=== PATIENT | female | born 1980 | race Two or more races ===

== ENCOUNTER 2024-01-23 15:28 | Outpatient (REF) | payer BC, SELFPAY | END 2024-01-23 15:29 | disposition home or self-care (01) | LOC: LAB 15:28 | PROVIDERS: PCP Family Medicine; Visit Provider Obstetrics & Gynecology | DX: N92.0 Excessive and frequent menstruation with regular cycle (principal); N94.89 Other specified conditions associated with female genital organs and menstrual cycle | CPT/HCPCS: 88305 ==

== ENCOUNTER 2024-02-10 14:38 | Outpatient (OUT) | payer BC, SELFPAY ==
--- NOTE | 2024-02-10 14:45 | ECG_ITS ---
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
--- OUTSIDE RECORDS SUMMARY | 2024-02-10 14:50 | XMS_ITS | CCD ---
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 Role Phone Kajal Herrera Unavailable CECILIO BOURGEOIS Referring Unavailable NADERERCECILIO Primary Care Unavailable CECILIO BOURGEOIS Referring Unavailable CHRISTELLE, CECILIO Primary Care Unavailable MIR MIRELES Attending Unavailable FLORMIR Santamaria Referring Unavailable CECILIO BOURGEOIS Attending Unavailable FLORMIR Santamaria Attending Unavailable AUREA DURAN Attending Unavailable MIR MIRELES Referring Unavailable AUREA DURAN Attending Unavailable Aurea Duran Attending Unavailable Aurea Duran Admitting Unavailable Allergies Allergy Classification Reported Allergen(s) Allergy Type Date of Onset Reaction(s) Facility (1 source) Cefaclor Drug Allergy 11-08-2023 [facility] Repository Medications Current Medications Medication Drug Class(es) Dates Sig (Normalized) Sig (Original) amitriptyline hydrochloride 25 mg oral tablet (1 source) Tricyclic Antidepressant take 1 tablet by mouth every twenty-four hours Amitriptyline HCl 25 MG 1 tablet at bedtime Orally Once a day for 30 day(s) Active amoxicillin 500 mg oral capsule (1 source) Penicillin-class Antibacterial Start: 2023 take 1 capsule by mouth every eight hours Amoxicillin 500 MG 1 capsule Orally three times a day for 10 day(s) Jun, Active Problems Problem Classification Problem Date Documented Da te Episodic/Chronic Other screening for suspected conditions (not mental disorders or infectious disease) (1 source) Encounter for screening mammogram for malignant neoplasm of breast; Translations: [Encounter for screening mammogram for malignant neoplasm of breast] Onset: 12-07-2023 Episodic Otitis media and related conditions (1 source) Otitis media, unspecified, bilateral Episodic Results Test Name Value Interpretation Reference Range Facil ity Alvino 01-23-2024 L Specimen: [id number] Received: 01/25/24 Status: JOANIE Garcia Num: [id number] Spec Type: Surgical Subm Dr: Aurea Duran Tissues: A Endometrium - Biopsy (EMB) B Endocervix - Curettings (ECC) Procedures: HE/4, Gross/Micro L4/2 Age/ Patient Sex Location Account Attending Physician BrandonMai fleming 43/F [facility] [id number] Aurea Duran SPEC NUM: [id number] RECD: 01/25/24 STATUS: JOANIE GARCIA NUM: [id number] KULWANT: 01/23/[address]: Aurea Duran ENTERED: 01/25/[address] [facility] DR: Jose,Lab SPEC TYPE: Surgical DEPT: LOIDA SCHAEFER ORDERED: HE/4, Gross/Micro L4/2 ORDERED: HE/4, Gross/Micro L4/2 Pathological Diagnosis A. Endometrium, biopsy: Scanty fragments of lower uterine segment endometrium, unremarkable. B. Endocervix, biopsy: Fragments of endocervix, unremarkable. Gross Description A. Received in formalin, labeled with the patient's name, date of and endo bx are multiple hemorrhagic lora tissue fragments admixed with mucus collectively measuring 2.2 x 0.4 x 0.1 cm, entirely submitted in A1. B. Received in formalin, labeled with the patient's name, date of and ECC are multiple lora tissue fragments admixed with mucus measuring in aggregate 2.0 x 0.7 x 0.1 cm, entirely submitted in B1. 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 Computer aided detection was utilized. FINDINGS: There are scattered areas of fibroglandular density. There are no suspicious masses, calcifications, or areas of architectural distortions. Benign bilateral calcifications including vascular calcifications IMPRESSION: Benign findings BI-RADS: BI-RADS 2 - Benign Recommendation: Routine screening mammogram in 1 year. Finalized by Rustam Pierce MD on 12/08/2023 8:40 AM 2 b MAMM 1 YR Normal [facility] BASIC METABOLIC PANLon 11-27 Anion gap [Moles/Vol] 11 mmol/L Normal 5-15 [facility] Comment on above: Performed By: #### C BCA, BMP, 71780-0, LIVR, 3016-3 #### [facility] ([id number]) [address], [address] [place] [address] Calcium [Mass/Vol] 9.5 mg/dL Normal 8.5-10.5 [facility] Comment on above: Performed By: #### C BCA, BMP, 87765-7, LIVR, 3016-3 #### [facility] ([id number]) [address], [address] [place] [address] Chloride [Moles/Vol] 105 mmol/L Normal 98-109 [facility] Comment on above: Performed By: #### C BCA, BMP, 25940-5, LIVR, 3016-3 #### [facility] ([id number]) [address], [address] [place] [address] CO2 [Moles/Vol] 25 mmol/L Normal 22-32 [facility] Comment on above: Performed By: #### C BCA, BMP, 88772-4, LIVR, 3016-3 #### [facility] ([id number]) [address], [address] [place] [address] Creatinine [Mass/Vol] 0.85 mg/dL Normal 0.40-1.00 [facility] Comment on above: Result Comment: METH OD TRACEABLE TO IDMS STANDARD Performed By: #### C BCA, BMP, 16289-4, LIVR, 3016-3 #### [facility] ([id number]) [address] [address] GFR/1.73 sq M.predicted among non-blacks MDRD (S/P/Bld) [Vol rate/Area] 86 mL/min/{1.73_m2} Normal >59 [facility] Comment on above: Result Comment: Reported eGFR is based on the CKD-EPI 2020 equation that does not use a race coefficient. Performed By: #### C BCA BMP, 26873-3, LIVR, 3016-3 #### [facility] ([id number]) [address] [address] Glucose [Mass/Vol] 69 mg/dL Normal 65-99 [facility] Comment on above: Performed By: #### C BCA, BMP, 59175-8, LIVR, 3016-3 #### [facility] ([id number]) [address] [address] Potassium [Moles/Vol] 3.4 mmol/L Low 3.5-5.0 [facility] Comment on above: Performed By: #### C BCA, BMP, 23861-0, LIVR, 3016-3 #### [facility] ([id number]) [address] [address] Sodium [Moles/Vol] 141 mmol/L Normal 134-146 [facility] Comment on above: Performed By: #### C BCA, BMP, 49247-9, LIVR, 6-3 #### [facility] ([id number]) [address] [address] Urea nitrogen [Mass/Vol] 9 mg/dL Normal 5-23 [facility] Comment on above: Performed By: #### C BCA, BMP, 32700-3, LIVR, 3016-3 #### [facility] ([id number]) [address] [address] CBC AND AUTO DIFFon 11-28-19 24 ABSOLUTE BASOPHIL 0.1 X10E9/L Normal 0.0-0.2 [facility] Comment on above: Performed By: #### C BCA, BMP, 84029-9, LIVR, 301-3 #### [facility] ([id number]) [address], [address] [place] [address] ABSOLUTE NEUTROPHIL 3.9 X10E9/L Normal 1.5-6.6 [facility] Comment on above: Performed By: #### C BCA, BMP, 32936-0, LIVR, 3015-11 #### [facility] ([id number]) [address], [facility] [address] [place] [address] Basophils/100 WBC (Bld) 0.8 % Normal [facility] Comment on above: Performed By: #### C BCA, BMP, 57170-5, LIVR, 3015-11 #### [facility] ([id number]) [address], [address] [place] [address] Eosinophils (Bld) [#/Vol] 0.1 10*3/uL Normal 0.0-0.4 [facility] Comment on above: Performed By: #### C BCA, BMP, 39618-3, LIVR, 3015-11 #### [facility] ([id number]) [address], [facility] [address] [place] [address] Eosinophils/100 WBC (Bld) 1.6 % Normal [facility] Comment on above: Performed By: #### C BCA, BMP, 13880-2, LIVR, 3015- #### [facility] ([id number]) [address], [facility] [address] [place] [address] Erythrocyte distribution width (RBC) [Ratio] 12.7 % Normal 11.5-15.0 [facility] Comment on above: Performed By: #### C BCA, BMP, 51350-7, LIVR, 3015- #### [facility] ([id number]) [address] [address] [place] [address] Hematocrit (Bld) [Volume fraction] 42.5 % Normal 35-47 [facility] Comment on above: Performed By: #### C BCA, BMP, 33597-3, LIVR, 301-3 #### [facility] ([id number]) [address] [address] [place] [address] Hemoglobin (Bld) [Mass/Vol] 14.3 g/dL Normal 11.7-15.5 [facility] Comment on above: Performed By: #### C BCA, BMP, 38213-7, LIVR, 3015-3 #### [facility] ([id number]) [address], [address] [place] [address] Lymphocytes (Bld) [#/Vol] 2.3 10*3/uL Normal 1.0-3.5 [facility] Comment on above: Performed By: #### C BCA, BMP, 53692-6, LIVR, 3015-11 #### [facility] ([id number]) [address] [place] [address] Lymphocytes/100 WBC (Bld) 33.2 % Normal [facility] Comment on above: Performed By: #### C BCA, BMP, 99706-3, LIVR, 301-3 #### [facility] ([id number]) [address], [address] [place] [address] MCH (RBC) [Entitic mass] 29.4 pg Normal 27-34 [facility] Comment on above: Performed By: #### C BCA, BMP, 75646-0, LIVR, 3015-3 #### [facility] ([id number]) [address], [address] [place] [address] MCHC (RBC) [Mass/Vol] 33.6 g/dL Normal 32-36 [facility] Comment on above: Performed By: #### C BCA, BMP, 37006-7, LIVR, 3015-11 #### [facility] ([id number]) [address], [address] [place] [address] MCV (RBC) [Entitic vol] 88 fL Normal 80-100 [facility] Comment on above: Performed By: #### C BCA, BMP, 85691-0, LIVR, 3015- #### [facility] ([id number]) [address], [address] [place] [address] Monocytes (Bld) [#/Vol] 0.5 10*3/uL Normal 0-0.9 [facility] Comment on above: Performed By: #### C BCA, BMP, 85475-9, LIVR, 3015-11 #### [facility] ([id number]) [address], [facility] [address] [place] [address] Monocytes/100 WBC (Bld) 7.5 % Normal [facility] Comment on above: Performed By: #### C BCA, BMP, 76202-7, LIVR, 3015-11 #### [facility] ([id number]) [address], [facility] [address] [place] [address] Neutrophils/100 WBC (Bld) 56.9 % Normal [facility] Comment on above: Performed By: #### C BCA, BMP, 55876-8, LIVR, 3015-11 #### [facility] ([id number]) [address], [address] [place] [address] Platelet mean volume (Bld) [Entitic vol] 7.3 fL Normal 7-12 [facility] Comment on above: Performed By: #### C BCA, BMP, 79407-3, LIVR, 6- #### [facility] ([id number]) [address], [address] [place] [address] Platelets (Bld) [#/Vol] 392 10*3/uL Normal 150-450 [facility] Comment on above: Performed By: #### C VIRY, BMP, 88680-2, LIVR, 3016-3 #### [facility] ([id number]) [address], [facility] [address] [place] [address] RBC COUNT 4.85 X10E12/L Normal 3.80-5.20 [facility] Comment on above: Performed By: #### C VIRY, BMP, 98635-9, LIVR, 3015-3 #### [facility] ([id number]) [address], [facility] [address] [place] [address] WBC (Bld) [#/Vol] 6.8 10*3/uL Normal 4.0-11.0 [facility] Comment on above: Performed By: #### C VIRY, BMP, 31573-2, LIVR, 3015-3 #### [facility] ([id number]) [address], [address] [place] [address] HGB A1C (GLYCO-HGB)on 2023 Glucose [Mass/Vol] 103 mg/dL Normal [facility] Comment on above: Performed By: #### C LORENE BAIRES, 57288-6, LIVR, 3015-3 #### [facility] ([id number]) [address] [address] [place] [address] HbA1c (Bld) [Mass fraction] 5.2 % Normal 4.4-5.6 [facility] Comment on above: Result Comment: NOTE ADA Guidelines Result HgbA1c Normal : less than 5.7 % Prediabetes : 5.7 % to 6.4 % Diabetes : > 6.4 % Use with caution in patients with abnormal hemoglobin variants as the half-life of red blood cells and in vivo glycation rates are affected. Performed By: #### C BCA, BMP, 45163-1, LIVR, 3016-3 #### [facility] ([id number]) [address], [address] [place] [address] LIVER PANELon 11-28-2023 Albumin [Mass/Vol] 4.2 g/dL Normal 3.2-5.3 [facility] Comment on above: Performed By: #### C BCA, BMP, 54557-3, LIVR, 3016-3 #### [facility] ([id number]) [address], [address] [place] [address] ALP [Catalytic activity/Vol] 59 U/L Normal 39-130 [facility] Comment on above: Performed By: #### C BCA, BMP, 03592-5, LIVR, 3016-3 #### [facility] ([id number]) [address], [address] [place] [address] ALT [Catalytic activity/Vol] 25 U/L Normal 0-31 [facility] Comment on above: Performed By: #### C BCA, BMP, 71733-8, LIVR, 6-3 #### [facility] ([id number]) [address], [address] [place] [address] AST [Catalytic activity/Vol] 20 U/L Normal 0-41 [facility] Comment on above: Performed By: #### C BCA, BMP, 10825-8, LIVR, 3016-3 #### [facility] ([id number]) [address], [address] [place] [address] Bilirubin [Mass/Vol] 0.3 mg/dL Normal 0.3-1.2 [facility] Comment on above: Performed By: #### C BCA, BMP, 20299-2, LIVR, 3016-3 #### [facility] ([id number]) [address], [address] [place] [address] Bilirubin.direct [Mass/Vol] 0.1 mg/dL Normal 0.0-0.4 [facility] Comment on above: Performed By: #### C VIRY, BMP, 69207-3, LIVR, 3016-3 #### [facility] ([id number]) [address], [address] [place] [address] Protein [Mass/Vol] 7.5 g/dL Normal 6.0-8.0 [facility] Comment on above: Performed By: #### Victorino BCA, BMP, 09122-0, LIVR, 3016-3 #### [facility] ([id number]) [address], [address] [place] [address] Lipid 1996 panelon 4 Cholesterol [Mass/Vol] 205 mg/dL High 150-200 [facility] Comment on above: Performed By: ###Nakul Gleason BCA, BMP, 52799-3, LIVR, 3016-3 #### [facility] ([id number]) [address], [address] [place] [address] Cholesterol in HDL [Mass/Vol] 39 mg/dL Low >39 [facility] Comment on above: Result Comment: HDL <40 mg/dL - High Risk HDL > or = 40mg/dL- Desirable HDL >60 mg/dL - Negative Risk Performed By: #### C BCA, BMP, 82417-5, LIVR, 3016-3 #### [facility] ([id number]) [address] [place] [address] Cholesterol in LDL [Mass/Vol] 134 mg/dL High <130 [facility] Comment on above: Result Comment: LDL <100 mg/dL - Desirable LDL >160 mg/dL - High Risk Performed By: #### Victorino BCA, BMP, 35805-3, LIVR, 3016-3 #### [facility] ([id number]) [address], [address] [place] [address] Cholesterol in VLDL [Mass/Vol] 32 mg/dL High 0-30 [facility] Comment on above: Performed By: #### C BCA, BMP, 46780-9, LIVR, 3016-3 #### [facility] ([id number]) [address], [address] [place] [address] CHOLESTEROL:HDL 5.3 High 1.0-5.0 [facility] Comment on above: Performed By: #### C BCA, BMP, 33222-0, LIVR, 3016-3 #### [facility] ([id number]) [address], [address] [place] [address] Triglyceride [Mass/Vol] 158 mg/dL High 27-150 [facility] Comment on above: Performed By: #### C BCA, BMP, 34137-0, LIVR, 3016-3 #### [facility] ([id number]) [address], [address] [place] [address] TSH Qnon 11-28-2023 TSH 2.66 uIU/mL Normal 0.49-4.67 [facility] Comment on above: Performed By: #### C BCA, BMP, 23034-3, LIVR, 3016-3 #### [facility] ([id number]) [address] [place] [address] US PELVIS TRANSVAGINALon US PELVIS TRANSVAGINAL Exam: US PELVIS TRANSVAGINAL History: Excessive and frequent menstruation. Technique: Sonography of the pelvis performed by transvaginal and transabdominal technique(s). Comparison: None. Result: Uterus: Orientation: Anteverted. Size: 9.6 x 4.1 x 5.6 cm. Myometrium: Homogeneous echotexture. Endometrial Echo complex: 0.5 cm. Cervix: Multiple nabothian cysts. Right ovary: Size: 2.8 x 1.7 x 1.9 cm Complex cyst or solid mass: None. Vascular flow present. Left ovary: Not visualized. Free Fluid:None. Prominent pelvic vascularity, especially on the left, which can be seen with pelvic congestion syndrome IMPRESSION: Impression: Uterus and right ovary grossly unremarkable. Left ovary not visualized. Prominent pelvic vascularity, which can be seen with pelvic congestion syndrome. ELECTRONICALLY SIGNED BY: Bashir Patel MD Normal Not Available Vital Signs Date Time Vital Sign Value Performing Clinician Facility 2023 16:10-0400 Body height 157.48 cm Kajal Herrera Other [facility] Other 2023 16:10-0400 Body mass index (BMI) [Ratio] 25.09 kg/m2 Kajal Herrera Other [facility] Other 2023 16:10-0400 Body temperature 99 [degF] Kajal Herrera Other [facility] Other 2023 16:10-0400 Body weight 62.23 kg Kajal Herrera Other [facility] Other 2023 16:10-0400 Diastolic blood pressure 79 mm[Hg] Kajal Herrera Other [facility] Other 2023 16:10-0400 Respiratory rate 18 /min Kajal Herrera Other [facility] Other 2023 16:10-0400 SaO2% (BldA) [Mass fraction] 98 % Kajal Herrera Other [facility] Other 2023 16:10-0400 Systolic blood pressure 115 mm[Hg] Kajal Mariemond Other [facility] Other Encounters Encounter Date Encounter Type Care Provider Facility Start: 01-23-2024 End: 01-23-2024 ambulatory AUREA MARGUERITE Not Available Start: 12-27-2023 End: 12-27-2023 ambulatory AUREA MARGUERITE Not Available Start: 12-22-2023 End: 12-23-2023 ambulatory MIR L FLORO Not Available Start: 12-07-2023 End: 12-08-2023 ambulatory [facility] Start: 11-28-2023 End: 11-29-2023 ambulatory [facility] Start: 11-28-2023 Encounter for genera l adult medical examination without abnormal findings [facility] Start: 11-22-2023 End: 11-22-2023 ambulatory CECILIO VEGAR Not Available Start: 11-18-2023 End: 11-19-2023 ambulatory MIR FLORO Not Available Start: 11-14-2023 End: 11-15-2023 ambulatory MIR L FLORO Not Available Start: 2023 End: 2023 ambulatory Kajal Herrera Other [facility] Other Start: 2023 Office outpatient ne w 20 minutes Kajal Herrera [facility] Payers Date Payer Category Payer Self-pay 2022 [facility] [id number] 1978 Unknown [id number] 2.16.8 [id number] 1978 Unknown [id number] 2.16.8 [id number] 1978 Unknown [id number] 2.16.84 0.1.230536.3.579.2.1259 1978 Unknown [id number] 2.16.84 0.1.404434.3.579.2.1259 1978 Unknown [id number] 2.16.84 0.1.490954.3.579.2.9 1978 Unknown [id number] 2.16.84 0.1.415910.3.579.2.1259 1978 Unknown [id number] 2.16.84 0.1.059267.3.579.2.9 1978 Unknown [id number] 2.16.84 0.1.034179.3.579.2.9 1978 Unknown [id number] 2.16.84 0.1.296057.3.579.2.1259 Social History Date Type Detail Facility Unknown if ever smoked [facility] Other Sex Assigned At Sex Assigned At Bir th [facility] Other Evaluation note 2023 Note Date & Type Note Facility 2023 Evaluation note Encounter Date Diagnosis Assessment Notes Jun, Bilateral otitis media, unspecified otitis media type (ICD-10 - H66.93) Middle ear infection: adult home care material was printed Drink plenty fluids, get plenty of rest. Take the amoxicillin as prescribed until gone. Continue take DayQuil as well as NyQuil for your symptoms. Off work until Tuesday. Follow-up with your family physician if no improvement in 2 to 3 days [facility] Other Summary Purpose Family History No Family History Records FoundNo Family History Records FoundNo Family History Records Found Advance Directives No Advanced Directives Records FoundNo Advanced Directives Records FoundNo Advanced Directives Records Found Additional Source Comments REASON FOR VISIT (unrecogniz ed section and content) SORE THROAT, EARS SHOOTING P AINS, INFORMATION SOURCE (unrecogn ized section and content) DATE CREATED AUTHOR 12/09/2023 [facility] DATE CREATED AUTHOR AUTHOR'S ORGANIZ ATION 01/24/2024 [facility] EPIC DATE CREATED AUTHOR AUTHOR'S ORGANIZ ATION 01/26/2024 [facility] FOR RECORDS PERTAINING TO PATIENTS WHO ARE OR HAVE BEEN ENROLLED IN A CHEMICAL DEPENDENCY/SUBSTANCEABUSE PROGRAM, SOME INFORMATION MAY BE OMITTED. This clinical summary was aggregated from multiple sources. Caution should be exercised in using it in the provision of clinical care. This summary normalizes information from multiple sources, and as a consequence, information in this document may materially change the coding, format and clinical context of patient data. In addition, data may be omitted in some cases. CLINICAL DECISIONS SHOULD BE BASED ON THE PRIMARY CLINICAL RECORDS. [facility]. provides no warranty or guarantee of the accuracy or completeness of information in this document.
== END 2024-02-10 14:39 | disposition home or self-care (01) ==
LOC: PST 14:39
PROVIDERS: Visit Provider Obstetrics & Gynecology
DX: Z01.810 Encounter for preprocedural cardiovascular examination (principal); N92.0 Excessive and frequent menstruation with regular cycle; N93.9 Abnormal uterine and vaginal bleeding, unspecified; R10.2 Pelvic and perineal pain
CPT/HCPCS: 93005

== ENCOUNTER 2024-02-17 06:13 | Day surgery (SDC) | payer BC, SELFPAY ==
[2024-02-10 15:10] VITALS: BP 126/84; PULSE 90; TEMP 36.5; O2SAT 98; BMI 26.5
[2024-02-17] VITALS (15 sets, daily range): BP systolic 107–126; BP diastolic 68–84; PULSE 82–100; TEMP 36.2–36.6; O2SAT 92–100; BMI 26.1
--- OUTSIDE RECORDS SUMMARY | 2024-02-17 06:16 | XMS_ITS ---
Patient Summarization (C-CDA 2.1 CCD) Created on: February 17, 2024 MAI PALOMARES : 1980 Sex: Female Author Organization Sample organization Care Team Providers Care Social Sciences Instructor Name Role Phone Kajal Herrera Unavailable NADERER, CECILIO Referring Unavailable NADERER, CECILIO Primary Care Unavailable NADERER, CECILIO Referring Unavailable NADERER, CECILIO Primary Care Unavailable FLORO, MIR Larios Attending Unavailable FLORO, MIR L Referring Unavailable NADERER, CECILIO Attending Unavailable FLORO, MIR L Attending Unavailable ROGER, AUREA Attending Unavailable FLORO, MIR L Referring Unavailable ROGER, AUREA Attending Unavailable Roger, Aurea Attending Unavailable Roger, Aurea Admitting Unavailable Allergies Allergy Classification Reported Allergen(s) Allergy Type Date of Onset Reaction(s) Facility (1 source) Cefaclor Drug Allergy 11-08-2023 [facility] Repository Encounters Encounter Date Encounter Type Care Provider Facility Start: 01-23-2024 End: 01-23-2024 ambulatory AUREA ROGER Not Available Start: 12-27-2023 End: 12-27-2023 ambulatory AUREA ROGER Not Available Start: 12-22-2023 End: 12-23-2023 ambulatory MIR Harriet FLORO Not Available Start: 12-07-2023 End: 12-08-2023 ambulatory CECILIO BOURGEOIS [facility] Start: 11-28-2023 End: 11-29-2023 [facility] Start: 11-28-2023 Encounter for genera l adult medical examination without abnormal findings [facility] Start: 11-22-2023 End: 11-22-2023 ambulatory CECILIO LUUEREKatia Not Available Start: 11-18-2023 End: 11-19-2023 ambulatory MIR FLORO Not Available Start: 11-14-2023 End: 11-15-2023 ambulatory MIR L FLORO Not Available Start: 2023 End: 2023 ambulatory Kajal Sharon Other [facility] Other Start: 2023 Office outpatient ne w 20 minutes Kajal Herrera [facility] [place] Medications Current Medications Medication Drug Class(es) Dates [...] a day for 10 day(s) Jun, Active Payers Date Payer Category Payer Self-pay 2022 [facility] [id number] 1980 Unknown [id number] 2.16.8 [id number] 1980 Unknown [id number] 2.16.8 [id number] 1980 Unknown [id number] 2.16.84 0.1.840003.3.579.2.9 1980 Unknown [id number] 2.16.84 0.1.578836.3.579.2.1259 1980 Unknown [id number] 2.16.84 [id number] 1980 Unknown [id number] 2.16.84 0.1.878852.3.579.2.9 1980 Unknown [id number] 2.16.84 0.1.387361.3.579.2.9 1980 Unknown [id number] 2.16.84 0.1.597791.3.579.2.9 1980 Unknown [id number] 2.16.84 [id number] Problems Problem Classification Problem Date Documented Da [...] Range Facil ity Alvino 01-23-2024 L Specimen: [id number] Received: 01/25/24 Status: JOANIE Garza Num: [id number] Spec Type: Surgical Subm Dr: Aurea Duran Tissues: A Endometrium - Biopsy (EMB) B Endocervix - Curettings (ECC) Procedures: HE/4, Gross/Micro L4/2 Age/ Patient Sex Location Account Attending Physician Brandon,Mai 43/F LABELL [id number] Aurea Duran SPEC NUM: [id number] RECD: 01/25/24 STATUS: JOANIE GARZA NUM: [id number] KULWANT: 01/23/[address]: Aurea Duran ENTERED: 01/25/24 [facility] DR: Jose,Lab SPEC TYPE: Surgical DEPT: LOIDA [...] regular cycle, pelvic congestion syndrome CPT Codes 15645i8 Specimen: [id number] Received: 01/25/24 Status: JOANIE Garza Num: [id number] Spec Type: Surgical Subm Dr: Aurea Duran Tissues: A Endometrium - Biopsy (EMB) B Endocervix - Curettings (ECC) Procedures: Malou DICKINSON/Fito L4/2 Patient: Mai Palomares [id number] (Continued) Signed (signature on file) Emani Ramirez MD 01/26/24 [id number] Normal [facility] MAMM 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 12-08-2023 MAMM SCREENING BILATERAL W CAD MAMM [...] AM 2 b MAMM 1 YR Normal [facility] BASIC METABOLIC PANLon 11-27 Anion gap [Moles/Vol] 11 mmol/L Normal 5-15 [facility] Comment on above: Performed By: #### C BCA, BMP, 65531-6, LIVR, 3016-3 #### [facility] ([id number]) [address], [address] [place] [address] Calcium [Mass/Vol] 9.5 mg/dL Normal 8.5-10.5 [facility] Comment on above: Performed By: #### C BCA, BMP, 59959-9, LIVR, 3016-3 #### [facility] ([id number]) [address], [address] [place] [address] Chloride [Moles/Vol] 105 mmol/L Normal 98-109 [facility] Comment on above: Performed By: #### C BCA, BMP, 20135-2, LIVR, 3016-3 #### [facility] ([id number]) [address], [address] [place] [address] CO2 [Moles/Vol] 25 mmol/L Normal 22-32 [facility] Comment on above: Performed By: #### C BCA, BMP, 61330-4, LIVR, 3016-3 #### [facility] ([id number]) [address] [place] [address] Creatinine [Mass/Vol] 0.85 mg/dL Normal 0.40-1.00 [facility] Comment on above: Result Comment: METH OD TRACEABLE TO IDMS STANDARD Performed By: #### C BCA, BMP, 27579-3, LIVR, 6- #### [facility] ([id number]) [address] [place] [address] GFR/1.73 sq M.predicted among non-blacks MDRD (S/P/Bld) [Vol rate/Area] 86 mL/min/{1.73_m2} Normal >59 [facility] Comment on above: Result Comment: Reported eGFR is based on the CKD-EPI 2020 equation that does not use a race coefficient. Performed By: #### C BCA, BMP, 93290-9, LIVR, 3015- #### [facility] ([id number]) [address] [place] [address] Glucose [Mass/Vol] 69 mg/dL Normal 65-99 [facility] Comment on above: Performed By: #### C BCA, BMP, 25929-6, LIVR, 3015- #### [facility] ([id number]) [address] [place] [address] Potassium [Moles/Vol] 3.4 mmol/L Low 3.5-5.0 [facility] Comment on above: Performed By: #### C BCA, BMP, 16740-2, LIVR, 3016- #### [facility] ([id number]) [address] [address] [place] [address] Sodium [Moles/Vol] 141 mmol/L Normal 134-146 [facility] Comment on above: Performed By: #### C BCA, BMP, 53419-3, LIVR, 3016-3 #### [facility] ([id number]) [address], [address] [place] [address] Urea nitrogen [Mass/Vol] 9 mg/dL Normal 5-23 [facility] Comment on above: Performed By: #### C BCA, BMP, 26493-8, LIVR, 3 #### [facility] ([id number]) [address], [address] [place] [address] CBC AND AUTO DIFFon 11-28-19 24 ABSOLUTE BASOPHIL 0.1 X10E9/L Normal 0.0-0.2 [facility] Comment on above: Performed By: #### C BCA, BMP, 38806-5, LIVR, 3015-11 #### [facility] ([id number]) [address], [address] [place] [address] ABSOLUTE NEUTROPHIL 3.9 X10E9/L Normal 1.5-6.6 [facility] Comment on above: Performed By: #### C BCA, BMP, 02793-2, LIVR, 3015-11 #### [facility] ([id number]) [address] [place] [address] Basophils/100 WBC (Bld) 0.8 % Normal [facility] Comment on above: Performed By: #### C BCA, BMP, 39145-7, LIVR, 3015-11 #### [facility] ([id number]) [address], [address] [place] [address] Eosinophils (Bld) [#/Vol] 0.1 10*3/uL Normal 0.0-0.4 [facility] Comment on above: Performed By: #### C BCA, BMP, 91588-7, LIVR, 3015-11 #### [facility] ([id number]) [address] [place] [address] Eosinophils/100 WBC (Bld) 1.6 % Normal [facility] Comment on above: Performed By: #### C BCA, BMP, 65957-6, LIVR, 3016-3 #### [facility] ([id number]) [address] [place] [address] Erythrocyte distribution width (RBC) [Ratio] 12.7 % Normal 11.5-15.0 [facility] Comment on above: Performed By: #### C BCA, BMP, 83160-6, LIVR, 3016-3 #### [facility] ([id number]) [address] [place] [address] Hematocrit (Bld) [Volume fraction] 42.5 % Normal 35-47 [facility] Comment on above: Performed By: #### C BCA, BMP, 90894-4, LIVR, 3015- #### [facility] ([id number]) [address] [place] [address] Hemoglobin (Bld) [Mass/Vol] 14.3 g/dL Normal 11.7-15.5 [facility] Comment on above: Performed By: #### C BCA, BMP, 01817-3, LIVR, 301- #### [facility] ([id number]) [address] [place] [address] Lymphocytes (Bld) [#/Vol] 2.3 10*3/uL Normal 1.0-3.5 [facility] Comment on above: Performed By: #### C BCA, BMP, 87334-9, LIVR, 3015-3 #### [facility] ([id number]) [address] [place] [address] Lymphocytes/100 WBC (Bld) 33.2 % Normal [facility] Comment on above: Performed By: #### C BCA, BMP, 40529-4, LIVR, 3016-3 #### [facility] ([id number]) [address] [place] [address] MCH (RBC) [Entitic mass] 29.4 pg Normal 27-34 [facility] Comment on above: Performed By: #### C BCA, BMP, 71916-8, LIVR, 3016-3 #### [facility] ([id number]) [address], [address] [place] [address] MCHC (RBC) [Mass/Vol] 33.6 g/dL Normal 32-36 [facility] Comment on above: Performed By: #### C BCA, BMP, 78863-5, LIVR, 3016- #### [facility] ([id number]) [address], [address] [place] [address] MCV (RBC) [Entitic vol] 88 fL Normal 80-100 [facility] Comment on above: Performed By: #### Victorino BCA, BMP, 95299-1, LIVR, 3016- #### [facility] ([id number]) [address], [address] [place] [address] Monocytes (Bld) [#/Vol] 0.5 10*3/uL Normal 0-0.9 [facility] Comment on above: Performed By: #### C BCA, BMP, 32473-2, LIVR, 3015- #### [facility] ([id number]) [address], [address] [place] [address] Monocytes/100 WBC (Bld) 7.5 % Normal [facility] Comment on above: Performed By: #### C BCA, BMP, 79889-2, LIVR, 3016- #### [facility] ([id number]) [address], [address] [place] [address] Neutrophils/100 WBC (Bld) 56.9 % Normal [facility] Comment on above: Performed By: #### C BCA, BMP, 83389-0, LIVR, 3016- #### [facility] ([id number]) [address], [address] [place] [address] Platelet mean volume (Bld) [Entitic vol] 7.3 fL Normal 7-12 [facility] Comment on above: Performed By: #### C BCA, BMP, 74854-8, LIVR, 3015-3 #### [facility] ([id number]) [address] [place] [address] Platelets (Bld) [#/Vol] 392 10*3/uL Normal 150-450 [facility] Comment on above: Performed By: #### Victorino BCA, BMP, 52300-0, LIVR, 3015- #### [facility] ([id number]) [address] [place] [address] RBC COUNT 4.85 X10E12/L Normal 3.80-5.20 [facility] Comment on above: Performed By: #### Victorino BCA, BMP, 11818-8, LIVR, 3015-11 #### [facility] ([id number]) [address] [place] [address] WBC (Bld) [#/Vol] 6.8 10*3/uL Normal 4.0-11.0 [facility] Comment on above: Performed By: #### Victorino BCA, BMP, 42507-7, LIVR, 3015- #### [facility] ([id number]) [address] [place] [address] HGB A1C (GLYCO-HGB)on 2023 Glucose [Mass/Vol] 103 mg/dL Normal [facility] Comment on above: Performed By: #### Victorino BCA, BMP, 83453-5, LIVR, 6-3 #### [facility] ([id number]) [address] [place] [address] HbA1c (Bld) [Mass fraction] 5.2 % Normal 4.4-5.6 [facility] Comment on above: Result Comment: NOTE ADA Guidelines Result HgbA1c Normal : less than 5.7 % Prediabetes : 5.7 % to 6.4 % Diabetes : > 6.4 % Use with caution in patients with abnormal hemoglobin variants as the half-life of red blood cells and in vivo glycation rates are affected. Performed By: #### C BCA, BMP, 71919-5, LIVR, 3016-3 #### [facility] ([id number]) [address], [address] [place] [address] LIVER PANELon 11-28-2023 Albumin [Mass/Vol] 4.2 g/dL Normal 3.2-5.3 [facility] Comment on above: Performed By: #### C BCA, BMP, 72532-7, LIVR, 3016-3 #### [facility] ([id number]) [address], [address] [place] [address] ALP [Catalytic activity/Vol] 59 U/L Normal 39-130 [facility] Comment on above: Performed By: #### C BCA, BMP, 53201-4, LIVR, 3016-3 #### [facility] ([id number]) [address], [address] [place] [address] ALT [Catalytic activity/Vol] 25 U/L Normal 0-31 [facility] Comment on above: Performed By: #### C BCA, BMP, 38759-4, LIVR, 3016-3 #### [facility] ([id number]) [address], [address] [place] [address] AST [Catalytic activity/Vol] 20 U/L Normal 0-41 [facility] Comment on above: Performed By: #### C BCA, BMP, 45241-1, LIVR, 3016-3 #### [facility] ([id number]) [address], [address] [place] [address] Bilirubin [Mass/Vol] 0.3 mg/dL Normal 0.3-1.2 [facility] Comment on above: Performed By: #### C BCA, BMP, 48480-0, LIVR, 3016-3 #### [facility] ([id number]) [address], [facility] [address] [place] [address] Bilirubin.direct [Mass/Vol] 0.1 mg/dL Normal 0.0-0.4 [facility] Comment on above: Performed By: #### C BCA, BMP, 67855-4, LIVR, 3016-3 #### [facility] ([id number]) [address], [facility] [address] [place] [address] Protein [Mass/Vol] 7.5 g/dL Normal 6.0-8.0 [facility] Comment on above: Performed By: #### C BCA, BMP, 41962-8, LIVR, 3016-3 #### [facility] ([id number]) [address] [place] [address] Lipid 1996 panelon 4 Cholesterol [Mass/Vol] 205 mg/dL High 150-200 [facility] Comment on above: Performed By: #### C BCA, BMP, 23033-1, LIVR, 3016-3 #### [facility] ([id number]) [address], [facility] [address] [place] [address] Cholesterol in HDL [Mass/Vol] 39 mg/dL Low >39 [facility] Comment on above: Result Comment: HDL <40 mg/dL - High Risk HDL > or = 40mg/dL- Desirable HDL >60 mg/dL - Negative Risk Performed By: #### C BCA, BMP, 71769-7, LIVR, 3016-3 #### [facility] ([id number]) [address], [address] [place] [address] Cholesterol in LDL [Mass/Vol] 134 mg/dL High <130 [facility] Comment on above: Result Comment: LDL <100 mg/dL - Desirable LDL >160 mg/dL - High Risk Performed By: #### C BCA, BMP, 62995-2, LIVR, 3016-3 #### [facility] ([id number]) [address] [place] [address] Cholesterol in VLDL [Mass/Vol] 32 mg/dL High 0-30 [facility] Comment on above: Performed By: #### C BCA, BMP, 30008-4, LIVR, 3016-3 #### [facility] ([id number]) [address], [address] [place] [address] CHOLESTEROL:HDL 5.3 High 1.0-5.0 [facility] Comment on above: Performed By: #### C BCA, BMP, 52663-0, LIVR, 3016-3 #### [facility] ([id number]) [address] [place] [address] Triglyceride [Mass/Vol] 158 mg/dL High 27-150 [facility] Comment on above: Performed By: #### C BCA, BMP, 20258-3, LIVR, 3016-3 #### [facility] ([id number]) [address], [address] [place] [address] TSH Qnon 11-28-2023 TSH 2.66 uIU/mL Normal 0.49-4.67 [facility] Comment on above: Performed By: #### C BCA, BMP, 79380-6, LIVR, 3016-3 #### [facility] ([id number]) [address], [address] [place] [address] US PELVIS TRANSVAGINALon US PELVIS TRANSVAGINAL Exam: [...] BY: Bashir Patel MD Normal Not Available Social History Date Type Detail Facility Unknown if ever smoked [facility] Other Sex Assigned At Sex Assigned At Bir th [facility] Other Vital Signs Date Time Vital Sign Value Performing Clinician Facility 2023 16:10-0400 Body height 157.48 cm Kajal Sharon Other [facility] Other 2023 16:10-0400 Body mass index (BMI) [Ratio] 25.09 kg/m2 Kajal Herrera Other [facility] Other 2023 16:10-0400 Body temperature 99 [degF] Kajal Herrera Other [facility] Other 2023 16:10-0400 Body weight 62.23 kg Kajal Herrera Other [facility] Other 2023 16:10-0400 Diastolic blood pressure 79 mm[Hg] Kajal Herrera Other [facility] Other 2023 16:10-0400 Respiratory rate 18 /min Kajal Herrera Other [facility] Other 2023 16:10-0400 SaO2% (BldA) [Mass fraction] 98 % Kajal Herrera Other [facility] Other 2023 16:10-0400 Systolic blood pressure 115 mm[Hg] Kajal Herrera Other [facility] Other Evaluation note 2023 Note Date & [...] no improvement in 2 to 3 days [facility] Other Summary Purpose Family History No Family History Records FoundNo Family History Records FoundNo Family History Records Found Advance Directives No Advanced Directives Records FoundNo Advanced Directives Records FoundNo Advanced Directives Records Found Additional Source Comments REASON FOR VISIT (unrecogniz ed section and content) SORE THROAT, EARS SHOOTING P AINS, INFORMATION SOURCE (unrecogn ized section and content) DATE CREATED AUTHOR 12/09/2023 [facility] DATE CREATED AUTHOR AUTHOR'S ORGANIZ ATION 01/24/2024 [facility] DATE CREATED AUTHOR AUTHOR'S ORGANIZ ATION 01/26/2024 [facility] FOR RECORDS PERTAINING TO PATIENTS [...] BE BASED ON THE PRIMARY CLINICAL RECORDS. [facility]. provides no warranty or guarantee of the accuracy or completeness of information in this document.
[2024-02-17 06:21] LABS: Basophils Absolute Auto 0.1 10^3/uL (0.0-0.1); Basophils Percent Auto 1.1 % (0.2-2.0); Eosinophils Absolute Auto 0.2 10^3/uL (0.0-0.7); Eosinophils Percent Auto 2.9 % (0.9-7.0); Hematocrit 42.5 % (36.0-48.0); Hemoglobin 14.2 g/dL (12.0-16.0); Immature Granulocytes Abs Auto 0.02 10^3/uL (0.00-0.03); Immature Granulocytes Pct Auto 0.4 % (0.0-0.5); Lymphocytes Absolute Auto 1.9 10^3/uL (1.2-3.8); Lymphocytes Percent Auto 34.3 % (20.5-60.0); Mean Corpuscular HGB Conc 33.4 g/dL (29.9-35.2); Mean Corpuscular Volume 86.9 fL (81.0-99.0); Mean Platelet Volume 8.5 fL (9.5-13.5); Monocytes Absolute Auto 0.4 10^3/uL (0.3-0.8); Monocytes Percent Auto 7.5 % (1.7-12.0); Neutrophils Percent Auto 53.8 % (43.0-75.0); Platelet Count 333 10^3/uL (150-450); Red Blood Count 4.89 10^6/uL (4.20-5.40); Red Cell Distribution Width 12.6 % (11.0-15.0); White Blood Count 5.6 10^3/uL (4.0-11.0)
[2024-02-17 06:40] LABS: HCG Quantitative <1 mIU/mL
[2024-02-17] MEDS: LACTATED RINGER'S SOLUTION 1,000 ML 50 ML IV ×3 (06:52→10:58)
--- NOTE | 2024-02-17 09:14 | PM.ONB ---
Brief Operative Note Date of procedure: 02/17/24 Pre-op diagnosis general: menorrhagia, desires permanent sterilization, dysmenorrhea Post-op diagnosis: other (rt ovarian cyst) Procedure: NAME OF PROCEDURE: robotic assisted Laparoscopic bilateral salpingectomy, with Kasey endometrial ablation with hysteroscopy, also rt ovarian cystotomy PROCEDURE: The patient was taken back to the OR where she was prepped and draped in the normal sterile fashion after being placed in the dorsal lithotomy position, after being placed under general anesthesia without difficulty. a weighted speculum was then placed into the vagina. Pap and endometrial bx were performed without difficultyThe anterior lip was grasped with a single tooth tenaculum. The patient was then sounded to approximatley 9cm. The patient was gently sounded using Hegar dilators and the hysteroscope was passed through the cervix into the uterus where both ostia were seen. No gross evidence of polyps, fibroids or malignancy. The cervical length was noted to be 4cm. The Kasey ablation apparatus was set to approximately 5cm in length. This was placed in through the cervix and into the uterus. After the seal was tested, at that time the total ablation of 120 seconds was performed with the Kasey without difficulty. All instruments were removed from the vagina. A wet sponge stick was placed into the patient's vagina. Attention was then turned to the patient's abdomen, where a scalpel was used to make a small infraumbilical incision. The S retractors were then used to dissect the underlying layers until the fascia could be seen. The fascia was then grasped with Yolette clamps and tented up. A knife was then used to make a small incision to the fascia. The muscle was identified, at that time two sutures of #0 Vicryl on a GI needlewas then used and placed through the fascia. The peritoneum was then identified and entered bluntly. The 10-4 Deborah was then placed into the patient's abdomen. This was confirmed with direct visualization of the bowel, using the laparoscope. The patient's abdomen was then insufflated using approximately 4 liters of CO2 gas. Survey of the patient's abdomen demonstrated normal appearing ovaries, uterus and tubes. A second and third lateral robotic ports, which was 8mm in size, was then placed laterally after incision was made in the skin under direct visualization. the robotic arms were engaged. The patient's tube on the patient's right side was identified. The tube was then tented up using a grasper. The ligasure was used to transect and coagulate the mesosalpingx from the fimbriated end to the insertion at the uterus, the tube was amputated and removed in its entirety.? Excellent hemostasis was noted. ?This was performed on the contralateral sideas well. The lateral ports were then moved under direct visualization with excellent hemostasis. The abdomen was deinsufflated. All instruments were removed from the patient's abdomen. The fascia was closed using the #0 Vicryl on GI needle. The skin was closed using 4-0 Vicryl subcuticularly. All instruments were removed from the patient's vagina as well. The patient was taken out of the dorsal lithotomy position and placed in the supine position and taken to recovery in stable condition. Sponge, lap and needle counts were correct x2. ???vessel sealer was used to perform rt ovarian cystotomy Anesthesia: JAKE Surgeon: Greyson Duran Environmental Research Project Manager: Elizabeth Galaviz Estimated blood loss (mL): 5 Pathology: other (tubes) Condition: stable Disposition: PACU Urinary Catheter Management Urinary Catheter Management Urethral: Cath placed during this visit: no
--- NOTE | 2024-02-17 11:28 | PC.NURSE ---
Up to bathroom and voids clear yellow without difficulty; returns to cart; very drowsy and dizzy
--- NOTE | 2024-02-17 11:51 | PC.NURSE ---
States she had been nauseated and now is feeling better; remains drowsy. Dressings x3 to abdomen dry and intact; peripad dry
--- NOTE | 2024-02-17 12:23 | PC.NURSE ---
Dressings x3 dry and intact to abdomen; peripad dry. No further c/o nausea; remains drowsy.
== END 2024-02-17 12:20 | disposition home or self-care (01) ==
PROVIDERS: PCP Family Medicine; Visit Provider Obstetrics & Gynecology
PROC: (CPT 840; principal; 2024-02-17 07:30)
PROC: (CPT 840; 2024-02-17 07:30)
DX: Z30.2 Encounter for sterilization (principal); N92.0 Excessive and frequent menstruation with regular cycle; N93.9 Abnormal uterine and vaginal bleeding, unspecified; R10.2 Pelvic and perineal pain; N83.201 Unspecified ovarian cyst, right side; N94.89 Other specified conditions associated with female genital organs and menstrual cycle
CPT/HCPCS: 49322; 58563; 58661; 36415; 84702; 85025; 88302; J1094; J1170; J2704

== ENCOUNTER 2024-10-02 11:00 | Outpatient (OUT) | payer BC, SELFPAY ==
--- OUTSIDE RECORDS SUMMARY | 2024-10-02 11:23 | XMS_ITS | CCD ---
Author Organization [facility] Care Team Providers Care 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Sorter Name Role Phone Kajal Herrera Unavailable Aurea Duran Attending Provider [phone] Nkechi Durany Admitting Unavailable RogerNkechiy Attending Unavailable Roger, Aurea Admitting Unavailable Roger, Aurea Attending Unavailable DO Nkechi Durany Attending Provider VANCE BOURGEOIS Referring Unavailable VANCE BOURGEOIS Primary Care Unavailable VANCE BOURGEOIS Referring Unavailable VANCE BOURGEOIS Primary Care Unavailable CHRISTELLE, VANCE Primary Care Unavailable FREDERIC ENGLISH Attending Unavailable NADHARJIT, VANCE Primary Care Unavailable SANJUANA WHITAKER Attending Unavailable Vance Bourgeois MD Unavailable Vance Bourgeois MD Primary Care Provider MIR MIRELES Attending Unavailable MIR MIRELES Referring Unavailable VANCE BOURGEOIS Attending Unavailable MIR MIRELES Attending Unavailable AUREA DURAN Attending Unavailable MIR MIRELES Referring Unavailable ROGER, AUREA Attending Unavailable VANCE BOURGEOIS Attending Unavailable ROGER, AUREA Attending Unavailable VANCE BOURGEOIS Attending Unavailable NADHARJIT, VANCE Attending Unavailable ROGER, AUREA Attending Unavailable Allergies Allergy Classification Reported Allergen(s) Allergy Type Date of Onset Reaction(s) Facility Cephalosporins (antibiotic) (1 source) Cefaclor Drug Allergy 11-08-2023 [facility] Repository (9 sources) Cefaclor; Translations: [CEFACLOR] Drug Allergy 04-09-2024 Hives [facility] Repository Medications Current Medications Medication Drug Class(es) Dates Sig (Normalized) Sig (Original) acetaminophen 325 mg / butalbital 50 mg / caffeine 40 mg oral tablet (13 sources) Barbiturate, Central Nervous System Stimulant, Methylxanthine Start: 02-28-2024 End: 08-30-2024 take 1 tablet by mouth four times daily as needed for headache butalbital-acetam inophen-caffeine 50-325-40 MG tablet Indications: Migraine without aura and without status migrainosus, not intractable (CMS/HCC) Take 1 tablet by mouth 4 (four) times a day as needed for headaches 60 tablet 1 08/30/2024 Active Start: 11-08-2023 End: 04-09-2024 take 1 capsule by mouth every eight hours Yspbulmnkm-Llyjtxsneuefy-Wsvh (Fioricet) 50-300-40 mg capsule Discontinued 1 CAP PO Every 8 hours November 08, 2023 1:00am April 09, 2024 2:27pm amitriptyline hydrochloride 25 mg oral tablet (11 sources) Tricyclic Antidepressant Start: 02-28-2024 take 1 tablet by mouth at bedtime amitriptyline (Elavil) 25 MG tablet Indications: Migraine without aura and without status migrainosus, not intractable (CMS/HCC) Take 1 tablet (25 mg) by mouth at bedtime 90 tablet 3 02/28/2024 Active take 1 tablet by kathleen th every twenty-four hours Amitriptyline HCl 25 MG 1 tablet at bedtime Orally Once a day for 30 day(s) Active amoxicillin 500 mg oral capsule (1 source) Penicillin-class Antibacterial Start: 2023 take 1 capsule by mouth every eight hours Amoxicillin 500 MG 1 capsule Orally three times a day for 10 day(s) Jun, Active Butalbital-Acetamin ophen-Caff (1 source) Start: 04-09-2024 take 1 tablet by mouth every six hours Butalbital-Aceta minophen-Caff Active 1 TAB PO Every 6 hours April 09, 2024 12:00am hydrOXYzine hydrochloride 25 mg oral tablet (10 sources) Antihistamine Start: 04-09-2024 End: 04-09-2025 take 1 tablet by mouth four times daily as needed hydrOXYzine HCl (Atarax) 25 MG tablet Indications: Generalized anxiety disorder (CMS/HCC) TAKE 1 TABLET BY MOUTH 4 TIMES DAILY NEEDED FOR ITCHING 120 tablet 09/13/2024 Active Start: 04-09-2024 take 25 mg by mouth once daily at bedtime Hydroxyzine Hcl Active 25 MG PO Daily at bedtime April 09, 2024 12:00am ibuprofen 800 mg oral tablet (5 sources) Nonsteroidal Anti-inflammatory Drug Start: 08-30-2024 take 1 tablet by mouth three times daily as needed for pain ibuprofen 800 MG tablet Indications: Dysmenorrhea Take 1 tablet (800 mg) by mouth 3 (three) times a day as needed for moderate pain 90 tablet 3 08/30/2024 Active levoFLOXacin 750 mg oral tablet (2 sources) Quinolone Antimicrobial Start: 06-14-2024 End: 06-21-2024 take 1 tablet by mouth once daily levoFLOXacin (Levaquin) 750 MG tablet Indications: Acute bronchitis due to other specified organisms Take 1 tablet (750 mg) by mouth Daily for 7 days 7 tablet 06/14/2024 06/21/2024 Active megestrol acetate 20 mg oral tablet (2 sources) Progestin Start: 09-25-2024 End: 10-28-2024 take 1 tablet by mouth once daily, then take 1 tablet by mouth twice daily, then take 1 tablet by mouth once daily megestrol (Megace) 20 MG tablet Indications: Menorrhagia with regular cycle Take 1 tablet (20 mg total) by mouth Daily. Take 1 tablet 2 times daily for 3 days then take 1 tablet daily for 1 month (36 tablets total) 36 tablet 1 09/25/2024 10/28/2024 Active rizatriptan 10 mg oral tablet (13 sources) Serotonin-1b and Serotonin-1d Receptor Agonist Start: 11-08-2023 Rizatriptan Active 10 MG PO EVERY 2-4 HOURS November 08, 2023 1:00am do not exceed 3 doses per 24 hrs Start: 10-13-2023 End: 08-30-2024 rizatriptan (Maxalt) 10 MG t ablet Indications: Migraine without aura and without status migrainosus, not intractable (CMS/HCC) Take 1 tablet (10 mg) by mouth 1 (one) time if needed for migraine May repeat in 2 hours if unresolved. Do not exceed 30 mg in 24 hours. 9 tablet 5 08/30/2024 Active Completed/Discontinued Medications Medication Drug Class(es) Dates Sig (Normalized) Sig (Original) dextromethorphan hydrobromide 15 mg / guaiFENesin 400 mg / pseudoephedrine hydrochloride 60 mg oral tablet (2 sources) alpha-Adrenergic Agonist, Uncompetitive X-butdgu-N-aspartat e Receptor Antagonist, Sigma-1 Agonist Start: 11-08-2023 End: 04-09-2024 take 4 tablets by mouth every twenty-four hours Pseudoephedrine-D m-Guaifenesin (Capmist Dm) 60-15-400 mg tablet Discontinued 1 TAB PO EVERY 4-6 HOURS November 08, 2023 1:00am April 09, 2024 2:26pm do not exceed 4 doses per 24 hrs fluticasone propionate 0.05 mg/actuat metered dose nasal spray (2 sources) Corticosteroid Start: 11-08-2023 End: 04-09-2024 take 1 spray(s) nasal route twice daily Fluticasone Propionate (Flonase Allergy Relief) 50 mcg/actuation spray,suspension Discontinued 1 SPRAY INTRANASAL Twice daily 16 November 08, 2023 1:00am April 09, 2024 2:33pm administer 1 spray into each nostril predniSONE 10 mg oral tablet (5 sources) Start: 06-14-2024 End: 08-30-2024 take 6 tablets by mouth once daily, then take 4 tablets by mouth once daily, then take 2 tablets by mouth once daily, then take 1 tablet by mouth once daily predniSONE (Deltasone) 10 MG tablet Indications: Acute bronchitis due to other specified organisms 6 PO daily x 3 days, 4 PO daily x 3 days, 2 PO daily x 3 days, 1 PO daily x 3 days 39 tablet 06/14/2024 08/30/2024 Discontinued Problems Active Problems Problem Classification Problem Date Documented Da te Episodic/Chronic Anxiety disorders (11 sources) Generalized anxiety disorder; Translations: [Generalized anxiety disorder] Onset: 11-22-2023 11-22-2023 Chronic Chronic obstructive pulmonary disease and bronchiectasis (1 source) Bronchitis, not specified as acute or chronic; Translations: [Bronchitis, not specified as acute or chronic] Onset: 06-06-2024 Episodic Fluid and electrolyte disorders (1 source) Hypokalemia; Translations: [Hypokalemia] Onset: 06-06-2024 Episodic Headache; including migraine (11 sources) Migraine without aura, not refractory ; Translations: [Migraine without aura, not intractable, without status migrainosus] Onset: 11-22-2023 02-28-2024 Chronic Menstrual disorders (9 sources) Dysmenorrhea; Translations: [Dysmenorrhea, unspecified] Onset: 08-30-2024 08-30-2024 Chronic Mood disorders (11 sources) Moderate recurrent major depression; Translations: [Major depressive disorder, recurrent, moderate] Onset: 11-22-2023 11-22-2023 Chronic Nonspecific chest pain (2 sources) Chest pain, unspecified; Translations: [Chest pain] Onset: 06-06-2024 Episodic Other aftercare (2 sources) Surgical follow-up; Translations: [Encounter for follow-up examination after completed treatment for conditions other than malignant neoplasm] 09-25-2024 Episodic Other lower respiratory disease (1 source) Rib pain Onset: 06-19-2024 Episodic Other upper respiratory disease (9 sources) Allergic rhinitis due to pollen; Translations: [Allergic rhinitis due to pollen] Onset: 11-22-2023 11-22-2023 Chronic Otitis media and related conditions (1 source) Otitis media, unspecified, bilateral Episodic Sprains and strains (1 source) Strain of muscle and tendon of front wall of thorax, initial encounter; Translations: [Strain of muscle and tendon of front wall of thorax, initial encounter] Onset: 06-19-2024 Episodic Unclassified (1 source) Cold Like Symptoms Onset: 06-06-2024 Unclassified (1 source) Cough, Congestion, Chest Pain Onset: 06-06-2024 Past or Other Problems Problem Classification Problem Date Documented Da te Episodic/Chronic Acute bronchitis (10 sources) Acute infective bronchitis; Translations: [Acute bronchitis due to other specified organisms] Onset: 06-14-2024 Resolved: 08-30-2024 06-14-2024 Episodic Other screening for suspected conditions (not mental disorders or infectious disease) (1 source) Encounter for screening mammogram for malignant neoplasm of breast; Translations: [Encounter for screening mammogram for malignant neoplasm of breast] Onset: 12-07-2023 Episodic Results Test Name Value Interpretation Reference Range Facility XR RIBS RT 3 VWS W PA CHESTo n 06-19-2024 XR RIBS RT 3 VWS W PA CHEST XR RIBS RT 3 VWS W PA CHEST XR RIBS RT 3 VWS W PA CHEST HISTORY: Right-sided rib pain after vigorous coughing COMPARISON: 06/06/2024 FINDINGS: No pleural effusion, pneumothorax, or focal consolidative process. Cardiomediastinal silhouette appears nonenlarged. No displaced rib fractures. Evaluation is compromised by diminished penetration related to body habitus. IMPRESSION: * No displaced rib fractures. * No evidence for acute pulmonary process. Approved by Resident: Jean Claude Hinds MD on 06/19/2024 3:12 PM I, Aftab Oh MD have personally reviewed the image(s) and agree with and/or edited the report Finalized by Aftab Oh MD on 06/19/2024 3:37 PM Normal [facility] CBC AND AUTO DIFFon 06-06-20 24 ABSOLUTE BASOPHIL 0.0 X10E9/L Normal 0.0-0.2 [facility] Comment on above: Performed By: #### C PETER BAIRES, , 95558-2 #### [facility] ([id number]) [address] [place] [address]12[address] ABSOLUTE NEUTROPHIL 8.7 X10E9/L High 1.5-6.6 [facility] Comment on above: Performed By: #### C PETER BAIRES, , 05325-4 #### [facility] ([id number]) [address] [place] [address] 67165 Basophils/100 WBC (Bld) 0.3 % Normal [facility] Comment on above: Performed By: #### C VIRY CMP, , 23208-6 #### [facility] ([id number]) [address] [place] [address] 21419 Eosinophils (Bld) [#/Vol] 0.4 10*3/uL Normal 0.0-0.4 [facility] Comment on above: Performed By: #### C VIRY CMP, , 72325-9 #### [facility] ([id number]) [address] [place] [address] 71478 Eosinophils/100 WBC (Bld) 3.5 % Normal [facility] Comment on above: Performed By: #### C PETER BAIRES, , 93676-1 #### [facility] ([id number]) [address] [place] [address] 71887 Erythrocyte distribution width (RBC) [Ratio] 12.8 % Normal 11.5-15.0 [facility] Comment on above: Performed By: #### C PETER BAIRES, , 60288-1 #### [facility] ([id number]) [address] [place] [address] 78398 Hematocrit (Bld) [Volume fraction] 39.1 % Normal 35-47 [facility] Comment on above: Performed By: #### Victorino BAIRES CMP, , 01458-7 #### [facility] ([id number]) [address] [place] [address] 09946 Hemoglobin (Bld) [Mass/Vol] 13.3 g/dL Normal 11.7-15.5 [facility] Comment on above: Performed By: #### C PETER BAIRES, , 80784-0 #### [facility] ([id number]) [address] [place] [address] 76725 Lymphocytes (Bld) [#/Vol] 1.4 10*3/uL Normal 1.0-3.5 [facility] Comment on above: Performed By: #### Victorino BAIRES CMP, , 03837-9 #### [facility] ([id number]) [address] [place] [address] 90652 Lymphocytes/100 WBC (Bld) 12.3 % Normal [facility] Comment on above: Performed By: #### C VIRY CMP, , 86935-4 #### [facility] ([id number]) [address] [place] [address] 05552 MCH (RBC) [Entitic mass] 29.3 pg Normal 27-34 [facility] Comment on above: Performed By: #### C VIRY, CMP, , 46958-1 #### [facility] ([id number]) [address] [place] [address] 62707 MCHC (RBC) [Mass/Vol] 34.0 g/dL Normal 32-36 [facility] Comment on above: Performed By: #### C VIRY, CMP, , 83185-9 #### [facility] ([id number]) [address] [place] [address] 27205 MCV (RBC) [Entitic vol] 86 fL Normal 80-100 [facility] Comment on above: Performed By: #### Victorino BCA, CMP, , 61448-7 #### [facility] ([id number]) [address] [place] [address] 76624 Monocytes (Bld) [#/Vol] 0.9 10*3/uL Normal 0-0.9 [facility] Comment on above: Performed By: #### Victorino BCA, CMP, , 57581-9 #### [facility] ([id number]) [address] [place] [address] 05322 Monocytes/100 WBC (Bld) 8.2 % Normal [facility] Comment on above: Performed By: #### Victorino BCA, CMP, , 94828-6 #### [facility] ([id number]) [address] [place] [address] 69560 Neutrophils/100 WBC (Bld) 75.7 % Normal [facility] Comment on above: Performed By: #### Victorino BCA, CMP, , 61907-0 #### [facility] ([id number]) [address] [place] [address] 14701 Platelet mean volume (Bld) [Entitic vol] 7.0 fL Normal 7-12 [facility] Comment on above: Performed By: #### C BCA, CMP, , 10472-4 #### [facility] ([id number]) [address] [place] [address] 90283 Platelets (Bld) [#/Vol] 310 10*3/uL Normal 150-450 [facility] Comment on above: Performed By: #### C BCA, CMP, , 74071-3 #### [facility] ([id number]) [address] [place] [address] 87563 RBC COUNT 4.55 X10E12/L Normal 3.80-5.20 [facility] Comment on above: Performed By: #### C BCA, CMP, , 65118-8 #### [facility] ([id number]) [address] [place] [address] 63595 WBC (Bld) [#/Vol] 11.6 10*3/uL High 4.0-11.0 [facility] Comment on above: Performed By: #### C BCA, CMP, , 44396-2 #### [facility] ([id number]) [address] [place] [address] 66404 COMPREHENSIVE METABOLIC PANE Alvino 06-06-2024 Albumin [Mass/Vol] 4.0 g/dL Normal 3.2-5.3 [facility] Comment on above: Performed By: #### C BCA, BMP, 98609-3, LIVR, 3016-3 #### [facility] ([id number]) [address], [address] [place] [address] ALP [Catalytic activity/Vol] 70 U/L Normal 39-130 [facility] Comment on above: Performed By: #### C BCA, BMP, 98044-3, LIVR, 3016-3 #### [facility] ([id number]) [address], [address] [place] [address] ALT [Catalytic activity/Vol] 31 U/L Normal 0-31 [facility] Comment on above: Performed By: #### C BCA, BMP, 50618-0, LIVR, 3016-3 #### [facility] ([id number]) [address], [address] [place] [address] Anion gap [Moles/Vol] 8 mmol/L Normal 5-15 [facility] Comment on above: Performed By: #### C BCA, BMP, 16259-2, LIVR, 3016-3 #### [facility] ([id number]) [address], [address] [place] [address] AST [Catalytic activity/Vol] 21 U/L Normal 0-41 [facility] Comment on above: Performed By: #### C BCA, BMP, 01708-6, LIVR, 3016-3 #### [facility] ([id number]) [address], [address] [place] [address] Bilirubin [Mass/Vol] 0.3 mg/dL Normal 0.3-1.2 [facility] Comment on above: Performed By: #### C BCA, BMP, 02312-4, LIVR, 6- #### [facility] ([id number]) [address], [address] [place] [address] Calcium [Mass/Vol] 8.7 mg/dL Normal 8.5-10.5 [facility] Comment on above: Performed By: #### C BCA, BMP, 71470-8, LIVR, 3016-3 #### [facility] ([id number]) [address], [address] [place] [address] Chloride [Moles/Vol] 105 mmol/L Normal 98-109 [facility] Comment on above: Performed By: #### C BCA, BMP, 36040-4, LIVR, 3016-3 #### [facility] ([id number]) [address], [address] [place] [address] CO2 [Moles/Vol] 24 mmol/L Normal 22-32 [facility] Comment on above: Performed By: #### C BCA, BMP, 12640-0, LIVR, 3015-3 #### [facility] ([id number]) [address], [address] [place] [address] Creatinine [Mass/Vol] 0.65 mg/dL Normal 0.40-1.00 [facility] Comment on above: Result Comment: METH OD TRACEABLE TO IDMS STANDARD Performed By: #### C VIRY BMP, 48617-4, LIVR, 3 #### [facility] ([id number]) [address], [address] [place] [address] eGFR (CKD-EPI) NON-RACE DEPENDENT >90 Normal >59 [facility] Comment on above: Result Comment: Reported eGFR is based on the CKD-EPI 2020 equation that does not use a race coefficient. Performed By: #### C BCA, BMP, 85697-0, LIVR, 6-3 #### [facility] ([id number]) [address], [address] [place] [address] Glucose [Mass/Vol] 98 mg/dL Normal 65-99 [facility] Comment on above: Performed By: #### C BCA, BMP, 02595-1, LIVR, 6-3 #### [facility] ([id number]) [address], [address] [place] [address] Potassium [Moles/Vol] 3.3 mmol/L Low 3.5-5.0 [facility] Comment on above: Performed By: #### C BCA, BMP, 56452-2, LIVR, 3016-3 #### [facility] ([id number]) [address] [address] Protein [Mass/Vol] 7.6 g/dL Normal 6.0-8.0 [facility] Comment on above: Performed By: #### C BCA, BMP, 47913-3, LIVR, 3016-3 #### [facility] ([id number]) [address], [address] [address] Sodium [Moles/Vol] 137 mmol/L Normal 134-146 [facility] Comment on above: Performed By: #### C BCA, BMP, 70185-5, LIVR, 3016-3 #### [facility] ([id number]) [address] [address] Urea nitrogen [Mass/Vol] 8 mg/dL Normal 5-23 [facility] Comment on above: Performed By: #### C BCA, BMP, 90283-2, LIVR, 3016-3 #### [facility] ([id number]) [address] [address] MAGNESIUMon 06-06-2024 Magnesium [Mass/Vol] 2.0 mg/dL Normal 1.8-2.6 [facility] Comment on above: Performed By: #### C BCA, BMP, 54928-1, LIVR, 3016-3 #### [facility] ([id number]) [address] [address] SARS/FLU A+B/RSV by NAAT/Mol ecularon 06-06-2024 SARS/FLU A+B/RSV by NAAT/Molecular FLU A PCR Negative (qualifier value) FLU B PCR Negative (qualifier value) RSV by PCR Negative (qualifier value) SARS CoV 2 Not detected (qualifier value) NOTE The Xpert Xpress SARS-CoV-2/Flu/RSV Plus test is a rapid, multiplexed real-time RT-PCR test intended for the simultaneous qualitative detection and differentiation of SARS-CoV-2, influenza A, influenza B and respiratory syncytial virus (RSV) viral RNA from individuals suspected of respiratory viral infection consistent with COVID-19 by their healthcare provider. This test has not been validated in asymptomatic patients. The Xpert Xpress SARS-CoV-2 test is intended for use by qualified and trained operators who are performing tests using either [employer] or [employer] systems and is limited to laboratories that meet the CLIA requirements to perform high and moderate complexity tests. The Xpert Xpress SARS-CoV-2/Flu/RSV Plus is only for use under the Food and Drug Administration's Emergency Use Authorization. Results are for the simultaneous detection and differentiation of SARS-CoV-2, influenza A, influenza B and RSV nucleic acids in clinical specimens. SARS-CoV-2, influenza A, influenza B and RSV RNA identified by this test are generally detectable in upper respiratory samples during the acute phase of infection. Positive results are indicative of the presence of the identified virus, but do not rule out bacterial infection or co-infection with other pathogens not detected by this test. Clinical correlation with patient history and other diagnostic information is necessary to determine patient infection status. The agent detected may not be the definite cause of disease. Negative results do not preclude SARS-CoV-2, influenza A, influenza B and RSV infection and should not be used as the sole basis for treatment or other patient management decisions. Negative results must be combined with clinical observations, patient history and epidemiological information. An Invalid result may occur with specimen-associated inhibition unable to be resolved with specimen repeat. Fact Sheet for Healthcare Providers: https://www.fda.gov/me lilly/584934/download Fact Sheet for Patients: https://www.fda.gov/me lilly/685676/download Normal [facility] Comment on above: Performed By: #### C OVFLR #### [facility] ([id number]) [address] [place] [address], [place] [address] Troponin I.cardiac High sens itivity method [Mass/Vol]on 06-06-2024 1 HOUR TROP I, HIGH SENSITIVITY <2 Normal <16 [facility] Comment on above: Performed By: #### C BCA, BMP, 82750-5, LIVR, 3016-3 #### [facility] ([id number]) [address], [address] [place] [address] TROPONIN I, HIGH SENSITIVITY <2 Normal <16 [facility] Comment on above: Performed By: #### C BCA, BMP, 15828-5, LIVR, 3016-3 #### [facility] ([id number]) [address], [address] [place] [address] XR CHEST 1 VWon 06-06-2024 XR CHEST 1 VW XR CHEST 1 VW XR CHEST 1 VW 06/06/2024 3:05 PM INDICATION: Cough congestion COMPARISON: None TECHNIQUE: AP portable upright view the chest was obtained. FINDINGS: The lungs are clear. There is no pneumothorax. There is no pleural effusion. The cardiomediastinal silhouette is unremarkable. No acute osseous abnormalities. IMPRESSION: No acute cardiopulmonary process. Finalized by Aftab Salazar on 06/06/2024 3:13 PM Normal [facility] Alvino 01-23-2024 L Specimen: [id number] Received: 01/25/24 Status: JOANIE Garcia Num: [id number] Spec Type: Surgical Subm Dr: Aurea Duran Tissues: A Endometrium - Biopsy (EMB) B Endocervix - Curettings (ECC) Procedures: HE/4, Gross/Micro L4/2 Age/ Patient Sex Location Account Attending Physician Mai Taylor 43/F [facility] [id number] Aurea Duran SPEC NUM: [id number] RECD: 01/25/24 [facility] NUM: [id number] KULW[place]: 01/23/[address]: Aurea Duran ENTERED: 01/25/[address] [facility] [address]: Jose,Robe SPEC TYPE: Surgical DEPT: LOIDA SCHAEFER ORDERED: [...] regular cycle, pelvic congestion syndrome CPT Codes 47807b6 ---- ---- Specimen: [id number] Received: 01/25/24 Status: JOANIE Garcia Num: [id number] Spec Type: Surgical Subm Dr: Aurea Duran Tissues: A Endometrium - Biopsy (EMB) B Endocervix - Curettings (ECC) Procedures: ANALI/Malou Nathan/Micro L4/2 ---- Patient: Mai Taylor [id number] (Continued) ---- Signed (signature on file) Emani Ramirez MD 01/26/24 1419 Normal [facility] MAMM SCREENING BILATERAL W C [employer] 12-08-2023 MAMM SCREENING BILATERAL W CAD MAMM [...] AM 2 b MAMM 1 YR Normal [facility] BASIC METABOLIC PANLon 11-27 Anion gap [Moles/Vol] 11 mmol/L Normal 5-15 [facility] Comment on above: Performed By: #### C BCA, BMP, 13249-2, LIVR, 3016-3 #### [facility] ([id number]) [address], [address] [place] [address] Calcium [Mass/Vol] 9.5 mg/dL Normal 8.5-10.5 [facility] Comment on above: Performed By: #### C BCA, BMP, 79596-8, LIVR, 3016-3 #### [facility] ([id number]) [address], [address] [place] [address] Chloride [Moles/Vol] 105 mmol/L Normal 98-109 [facility] Comment on above: Performed By: #### C BCA, BMP, 69776-4, LIVR, 301-3 #### [facility] ([id number]) [address], [address] [place] [address] CO2 [Moles/Vol] 25 mmol/L Normal 22-32 [facility] Comment on above: Performed By: #### C BCA, BMP, 49987-5, LIVR, 3015-3 #### [facility] ([id number]) [address], [address] [place] [address] Creatinine [Mass/Vol] 0.85 mg/dL Normal 0.40-1.00 [facility] Comment on above: Result Comment: METH OD TRACEABLE TO IDMS STANDARD Performed By: #### C VIRY, LORENE, 22183-1, LIVR, 3 #### [facility] ([id number]) [address], [address] [place] [address] GFR/1.73 sq M.predicted among non-blacks MDRD (S/P/Bld) [Vol rate/Area] 86 mL/min/{1.73_m2} Normal >59 [facility] Comment on above: Result Comment: Reported eGFR is based on the CKD-EPI 2020 equation that does not use a race coefficient. Performed By: #### C BCA, BMP, 24271-7, LIVR, 3 #### [facility] ([id number]) [address], [address] [place] [address] Glucose [Mass/Vol] 69 mg/dL Normal 65-99 [facility] Comment on above: Performed By: #### C BCA, BMP, 13230-5, LIVR, 6-3 #### [facility] ([id number]) [address], [address] [place] [address] Potassium [Moles/Vol] 3.4 mmol/L Low 3.5-5.0 [facility] Comment on above: Performed By: #### C BCA, BMP, 60189-4, LIVR, 3016-3 #### [facility] ([id number]) [address], [address] [place] [address] Sodium [Moles/Vol] 141 mmol/L Normal 134-146 [facility] Comment on above: Performed By: #### C BCA, BMP, 76008-0, LIVR, 3016-3 #### [facility] ([id number]) [address], [facility] [address] [place] [address] Urea nitrogen [Mass/Vol] 9 mg/dL Normal 5-23 [facility] Comment on above: Performed By: #### C BCA, BMP, 28094-9, LIVR, 3016-3 #### [facility] ([id number]) [address], [address] [place] [address] CBC AND AUTO DIFFon 18-20 24 ABSOLUTE BASOPHIL 0.1 X10E9/L Normal 0.0-0.2 [facility] Comment on above: Performed By: #### C BCA, BMP, 33805-7, LIVR, 3015-3 #### [facility] ([id number]) [address], [facility] [address] [place] [address] ABSOLUTE NEUTROPHIL 3.9 X10E9/L Normal 1.5-6.6 [facility] Comment on above: Performed By: #### C BCA, BMP, 58754-9, LIVR, 3016-3 #### [facility] ([id number]) [address] [address] [place] [address] Basophils/100 WBC (Bld) 0.8 % Normal [facility] Comment on above: Performed By: #### C BCA, BMP, 67907-0, LIVR, 3016-3 #### [facility] ([id number]) [address], [address] [place] [address] Eosinophils (Bld) [#/Vol] 0.1 10*3/uL Normal 0.0-0.4 [facility] Comment on above: Performed By: #### C BCA, BMP, 00913-5, LIVR, 3016-3 #### [facility] ([id number]) [address], [address] [place] [address] Eosinophils/100 WBC (Bld) 1.6 % Normal [facility] Comment on above: Performed By: #### C BCA, BMP, 56643-7, LIVR, 3016-3 #### [facility] ([id number]) [address] [address] [place] [address] Erythrocyte distribution width (RBC) [Ratio] 12.7 % Normal 11.5-15.0 [facility] Comment on above: Performed By: #### C BCA, BMP, 85672-9, LIVR, 3015- #### [facility] ([id number]) [address] [address] [place] [address] Hematocrit (Bld) [Volume fraction] 42.5 % Normal 35-47 [facility] Comment on above: Performed By: #### C BCA, BMP, 59082-7, LIVR, 3016-3 #### [facility] ([id number]) [address], [facility] [address] [place] [address] Hemoglobin (Bld) [Mass/Vol] 14.3 g/dL Normal 11.7-15.5 [facility] Comment on above: Performed By: #### C BCA, BMP, 47363-4, LIVR, 3016-3 #### [facility] ([id number]) [address] [address] [place] [address] Lymphocytes (Bld) [#/Vol] 2.3 10*3/uL Normal 1.0-3.5 [facility] Comment on above: Performed By: #### C BCA, BMP, 46766-8, LIVR, 3015-11 #### [facility] ([id number]) [address] [address] [place] [address] Lymphocytes/100 WBC (Bld) 33.2 % Normal [facility] Comment on above: Performed By: #### C BCA, BMP, 64804-8, LIVR, 3015-11 #### [facility] ([id number]) [address], [address] [place] [address] MCH (RBC) [Entitic mass] 29.4 pg Normal 27-34 [facility] Comment on above: Performed By: #### C BCA, BMP, 68939-8, LIVR, 3015-11 #### [facility] ([id number]) [address] [place] [address] MCHC (RBC) [Mass/Vol] 33.6 g/dL Normal 32-36 [facility] Comment on above: Performed By: #### C BCA, BMP, 63501-8, LIVR, 3015-11 #### [facility] ([id number]) [address], [address] [place] [address] MCV (RBC) [Entitic vol] 88 fL Normal 80-100 [facility] Comment on above: Performed By: #### C BCA, BMP, 87544-3, LIVR, 3015-11 #### [facility] ([id number]) [address], [address] [place] [address] Monocytes (Bld) [#/Vol] 0.5 10*3/uL Normal 0-0.9 [facility] Comment on above: Performed By: #### C BCA, BMP, 26272-2, LIVR, 6- #### [facility] ([id number]) [address], [address] [place] [address] Monocytes/100 WBC (Bld) 7.5 % Normal [facility] Comment on above: Performed By: #### C BCA, BMP, 52697-3, LIVR, 3016-3 #### [facility] ([id number]) [address], [facility] [address] [place] [address] Neutrophils/100 WBC (Bld) 56.9 % Normal [facility] Comment on above: Performed By: #### C BCA, BMP, 59469-8, LIVR, 6- #### [facility] ([id number]) [address], [facility] [address] [place] [address] Platelet mean volume (Bld) [Entitic vol] 7.3 fL Normal 7-12 [facility] Comment on above: Performed By: #### C BCA, BMP, 49459-1, LIVR, 3015- #### [facility] ([id number]) [address] [address] [place] [address] Platelets (Bld) [#/Vol] 392 10*3/uL Normal 150-450 [facility] Comment on above: Performed By: #### C BCA, BMP, 54434-0, LIVR, 3015- #### [facility] ([id number]) [address], [facility] [address] [place] [address] RBC COUNT 4.85 X10E12/L Normal 3.80-5.20 [facility] Comment on above: Performed By: #### C BCA, BMP, 22012-2, LIVR, 3015- #### [facility] ([id number]) [address] [address] [place] [address] WBC (Bld) [#/Vol] 6.8 10*3/uL Normal 4.0-11.0 [facility] Comment on above: Performed By: #### C BCA, BMP, 31369-9, LIVR, 3016-3 #### [facility] ([id number]) [address], [address] [place] [address] HGB A1C (GLYCO-HGB)on 2023 Glucose [Mass/Vol] 103 mg/dL Normal [facility] Comment on above: Performed By: #### C BCA, BMP, 33784-0, LIVR, 3016-3 #### [facility] ([id number]) [address], [address] [place] [address] HbA1c (Bld) [Mass fraction] 5.2 % Normal 4.4-5.6 [facility] Comment on above: Result Comment: NOTE ADA Guidelines Result HgbA1c Normal : less than 5.7 % Prediabetes : 5.7 % to 6.4 % Diabetes : > 6.4 % Use with caution in patients with abnormal hemoglobin variants as the half-life of red blood cells and in vivo glycation rates are affected. Performed By: #### C BCA, BMP, 30757-7, LIVR, 3016-3 #### [facility] ([id number]) [address] [address] [place] [address] LIVER PANELon 11-28-2023 Albumin [Mass/Vol] 4.2 g/dL Normal 3.2-5.3 [facility] Comment on above: Performed By: #### C BCA, BMP, 03640-8, LIVR, 3016-3 #### [facility] ([id number]) [address], [address] [place] [address] ALP [Catalytic activity/Vol] 59 U/L Normal 39-130 [facility] Comment on above: Performed By: #### C BCA, BMP, 00491-7, LIVR, 3016-3 #### [facility] ([id number]) [address], [address] [place] [address] ALT [Catalytic activity/Vol] 25 U/L Normal 0-31 [facility] Comment on above: Performed By: #### C BCA, BMP, 52472-9, LIVR, 3016-3 #### [facility] ([id number]) [address], [address] [place] [address] AST [Catalytic activity/Vol] 20 U/L Normal 0-41 [facility] Comment on above: Performed By: #### C BCA, BMP, 90208-2, LIVR, 3016-3 #### [facility] ([id number]) [address], [address] [place] [address] Bilirubin [Mass/Vol] 0.3 mg/dL Normal 0.3-1.2 [facility] Comment on above: Performed By: #### C BCA, BMP, 56764-9, LIVR, 3016-3 #### [facility] ([id number]) [address], [address] [place] [address] Bilirubin.direct [Mass/Vol] 0.1 mg/dL Normal 0.0-0.4 [facility] Comment on above: Performed By: #### C BCA, BMP, 95920-9, LIVR, 3016-3 #### [facility] ([id number]) [address], [address] [place] [address] Protein [Mass/Vol] 7.5 g/dL Normal 6.0-8.0 [facility] Comment on above: Performed By: #### C BCA, BMP, 24709-2, LIVR, 3016-3 #### [facility] ([id number]) [address], [address] [place] [address] Lipid 1996 panelon 4 Cholesterol [Mass/Vol] 205 mg/dL High 150-200 [facility] Comment on above: Performed By: #### C BCA, BMP, 52047-7, LIVR, 3016-3 #### [facility] ([id number]) [address], [address] [place] [address] Cholesterol in HDL [Mass/Vol] 39 mg/dL Low >39 [facility] Comment on above: Result Comment: HDL <40 mg/dL - High Risk HDL > or = 40mg/dL- Desirable HDL >60 mg/dL - Negative Risk Performed By: #### C BCA, BMP, 07911-2, LIVR, 3016-3 #### [facility] ([id number]) [address], [address] [place] [address] Cholesterol in LDL [Mass/Vol] 134 mg/dL High <130 [facility] Comment on above: Result Comment: LDL <100 mg/dL - Desirable LDL >160 mg/dL - High Risk Performed By: #### C BCA, BMP, 95691-7, LIVR, 3016-3 #### [facility] ([id number]) [address], [address] [place] [address] Cholesterol in VLDL [Mass/Vol] 32 mg/dL High 0-30 [facility] Comment on above: Performed By: #### Victorino BCA, BMP, 68226-0, LIVR, 3016-3 #### [facility] ([id number]) [address], [address] [place] [address] CHOLESTEROL:HDL 5.3 High 1.0-5.0 [facility] Comment on above: Performed By: #### C BCA, BMP, 03974-4, LIVR, 3016-3 #### [facility] ([id number]) [address], [address] [place] [address] Triglyceride [Mass/Vol] 158 mg/dL High 27-150 [facility] Comment on above: Performed By: #### C BCA, BMP, 47705-6, LIVR, 3016-3 #### [facility] ([id number]) [address] [place] [address] TSH Qnon 11-28-2023 TSH 2.66 uIU/mL Normal 0.49-4.67 [facility] Comment on above: Performed By: #### C BCA, BMP, 49878-3, LIVR, 3016-3 #### [facility] ([id number]) [address] [place] [address] US PELVIS TRANSVAGINALon US PELVIS TRANSVAGINAL Exam: [...] Time Vital Sign Value Performing Clinician Facility 09-25-2024 15:18-0500 Body mass index (BMI) [Ratio] 26.34 kg/m2 WAKU WAKU ? Work Phone: [facility] 09-25-2024 15:18-0500 Body weight 65.32 kg WAKU WAKU ? Work Phone: [facility] 09-25-2024 15:18-0500 Diastolic blood pressure 74 mm[Hg] WAKU WAKU ? Work Phone: [facility] 09-25-2024 15:18-0500 Systolic blood pressure 110 mm[Hg] Aurea Duran DO Work Phone: [facility] 08-30-2024 14:39-0500 Body height 157.5 cm Vance Bourgeois MD Work Phone: [facility] 08-30-2024 14:39-0500 Body mass index (BMI) [Ratio] 26.34 kg/m2 Vance Bourgeois MD Work Phone: [facility] 08-30-2024 14:39-0500 Body temperature 98.2 [degF] Vance Bourgeois MD Work Phone: [facility] 08-30-2024 14:39-0500 Body weight 65.32 kg Vance Bourgeois MD Work Phone: [facility] 08-30-2024 14:39-0500 Diastolic blood pressure 64 mm[Hg] Vance Bourgeois MD Work Phone: [facility] 08-30-2024 14:39-0500 Heart rate 74 /min Vance Bourgeois MD Work Phone: [facility] 08-30-2024 14:39-0500 Respiratory rate 20 /min Vance Bourgeois MD Work Phone: [facility] 08-30-2024 14:39-0500 SaO2% (BldA) [Mass fraction] 97 % Vance Bourgeois MD Work Phone: [facility] 08-30-2024 14:39-0500 Systolic blood pressure 106 mm[Hg] Vance Bourgeois MD Work Phone: [facility] 06-14-2024 14:30-0400 Body height 157.5 cm Vance Bourgeois MD Work Phone: [facility] 06-14-2024 14:30-0400 Body mass index (BMI) [Ratio] 26.52 kg/m2 Vance Bourgeois MD Work Phone: [facility] 06-14-2024 14:30-0400 Body temperature 97.81 [degF] Vance Bourgeois MD Work Phone: [facility] 06-14-2024 14:30-0400 Body weight 65.77 kg Vance Bourgeois MD Work Phone: [facility] 06-14-2024 14:30-0400 Diastolic blood pressure 58 mm[Hg] Vance Bourgeois MD Work Phone: [facility] 06-14-2024 14:30-0400 Heart rate 95 /min Vance Bourgeois MD Work Phone: [facility] 06-14-2024 14:30-0400 Respiratory rate 22 /min Vance Bourgeois MD Work Phone: [facility] 06-14-2024 14:30-0400 SaO2% (BldA) [Mass fraction] 98 % Vance Bourgeois MD Work Phone: [facility] 06-14-2024 14:30-0400 Systolic blood pressure 110 mm[Hg] Vance Bourgeois MD Work Phone: [facility] 04-09-2024 14:28-0400 Body height 158.75 cm DO Aurea Roger Work Phone: [facility] 04-09-2024 14:28-0400 Body mass index (BMI) [Ratio] 25.2 kg/m2 DO Aurea Roger Work Phone: [facility] 04-09-2024 14:28-0400 Body temperature 98.2 [degF] DO Aurea Roger Work Phone: [facility] 04-09-2024 14:28-040 Body weight 63.5 kg DO Aurea Roger Work Phone: [facility] 04-09-2024 14:28-0400 Diastolic blood pressure 83 mm[Hg] DO Aurea Roger Work Phone: [facility] 04-09-2024 14:28-0400 Heart rate 84 /min DO Aurea Roger Work Phone: [facility] 04-09-2024 14:28-040 Respiratory rate 18 /min DO Aurea Roger Work Phone: [facility] 04-09-2024 14:28-0400 SaO2% (BldA) [Mass fraction] 98 % DO Aurea Roger Work Phone: [facility] 04-09-2024 14:28-0400 Systolic blood pressure 123 mm[Hg] DO Aurea Roger Work Phone: [facility] 2023 16:10-0400 Body height 157.48 cm Kajal Sharon Other [facility] Other 2023 16:10-0400 Body mass index (BMI) [Ratio] 25.09 kg/m2 Kajal Sharon Other [facility] Other 2023 16:10-0400 Body temperature 99 [degF] Kajal Sharon Other [facility] Other 2023 16:10-0400 Body weight 62.23 kg Kajal Sharon Other [facility] Other 2023 16:10-0400 Diastolic blood pressure 79 mm[Hg] Kajal Sharon Other [facility] Other 2023 16:10-0400 Respiratory rate 18 /min Kajal Sharon Other [facility] Other 2023 16:10-0400 SaO2% (BldA) [Mass fraction] 98 % Kajal Sharon Other [facility] Other 2023 16:10-0400 Systolic blood pressure 115 mm[Hg] Kajal Herrera Other [facility] Other Encounters Encounter Date Encounter Type Care Provider Facility Start: 09-25-2024 End: 09-25-2024 Office outpatient visit 15 minutes Aurea Roger DO Work Phone: [facility] Comment on above: Postop check; Menorrhagia with regular cycle Start: 09-25-2024 End: 09-25-2024 ambulatory AUREA ROGER Not Available Start: 09-25-2024 End: 09-25-2024 Bamboo flowsheet Aurea Roger DO Work Phone: [facility] Start: 09-25-2024 End: 09-25-2024 Bamboo flowsheet Aurea Roger DO Work Phone: [facility] Start: 08-30-2024 End: 08-30-2024 Office outpatient visit 25 minutes Vance Bourgeois MD Work Phone: [facility] Comment on above: Migraine without aur a and without status migrainosus, not intractable (CMS/HCC) (Primary Dx); MDD (major depressive disorder), recurrent episode, moderate (CMS/HCC); Generalized anxiety disorder (CMS/HCC); Dysmenorrhea Start: 08-30-2024 End: 08-30-2024 ambulatory VANCE BOURGEOIS Not Available Start: 08-30-2024 End: 08-30-2024 Bamboo flowsheet Vance Bourgeois MD Work Phone: [facility] Start: 08-30-2024 End: 08-30-2024 Bamboo flowsheet Vance Bourgeois MD Work Phone: [facility] Start: 06-19-2024 End: 06-19-2024 Emergency department patient visit VANCE BOURGEOIS [facility] Start: 06-14-2024 End: 06-14-2024 Office outpatient visit 15 minutes Vance Bourgeois MD Work Phone: [facility] Comment on above: Acute bronchitis due to other specified organisms (Primary Dx) Start: 06-14-2024 End: 06-14-2024 ambulatory VANCE BOURGEOIS Not Available Start: 06-14-2024 End: 06-14-2024 Bamboo flowsheet Vance Bourgeois MD Work Phone: [facility] Start: 06-14-2024 End: 06-14-2024 Bamboo flowsheet Vance Bourgeois MD Work Phone: [facility] Start: 06-06-2024 End: 06-06-2024 Emergency department patient visit VANCE BOURGEOIS [facility] Start: 04-09-2024 End: 04-09-2024 ambulatory DO Aurea Roger Work Phone: [facility] Work Phone: Start: 04-09-2024 End: 04-09-2024 Patient encounter procedure DO Aurea Roger Work Phone: [facility] Work Phone: Start: 03-21-2024 End: 03-21-2024 ambulatory AUREA ROGER Not Available Start: 02-28-2024 End: 02-28-2024 ambulatory VANCE BOURGEOIS Not Available Start: 02-17-2024 End: 02-17-2024 ambulatory Aurea Roger [facility] Work Phone: Start: 02-17-2024 End: 02-17-2024 Departed Referred Aurea Roger Work Phone: [facility] Start: 01-23-2024 End: 01-23-2024 Departed Referred Aurea Roger Work Phone: [facility] Start: 01-23-2024 End: 01-23-2024 ambulatory Aurea Roger Facility:[facility] Start: 12-27-2023 End: 12-27-2023 ambulatory AUREA DURAN Not Available Start: 12-22-2023 End: 12-22-2023 ambulatory MIR Harriet FLORO Not Available Start: 12-07-2023 End: 12-07-2023 ambulatory [facility] Start: 11-28-2023 End: 11-28-2023 ambulatory [facility] Start: 11-28-2023 Encounter for genera l adult medical examination without abnormal [facility] Start: 11-22-2023 End: 11-22-2023 ambulatory VANCE BOURGEOIS Not Available Start: 11-22-2023 Patient encounter procedure Vance Bourgeois MD Work Phone: [facility] Start: 11-18-2023 End: 11-18-2023 ambulatory MIR PATTERSONO Not Available Start: 11-14-2023 End: 11-14-2023 ambulatory MIR Harriet FLORO Not Available Start: 2023 End: 2023 ambulatory Kajal Herrera Other [facility] Other Start: 2023 Office outpatient ne w 20 minutes Kajal Herrera [facility] Procedures Date Procedure Procedure Detail Performing Clinician Start: 12-08-2023 Mammography Vance ramirez MD Work Phone: Start: 11-14-2023 Microscopic observat ion [Identifier] in Cervix by Cyto stain Vance Bourgeois MD Work Phone: Plan of Treatment Date Care Activity Detail Author Start: 11-13-2028 Screening for malign ant neoplasm of cervix [facility] Start: 12-15-2026 Screening for malign ant neoplasm of colon [facility] Start: 02-28-2025 End: 02-28-2025 Patient encounter procedure 02/28/2025 2:30 PM EDT Office Visit [facility] [address] [place] [phone] Vance Bourgeois MD [address] [place] [phone] [facility] Start: 12-07-2024 Screening for malign ant neoplasm of breast [facility]ammogram [facility] Start: 11-12-2024 End: 11-12-2024 Patient encounter procedure 11/12/2024 2:50 PM EST Consult [facility] [address] [place] [id number] Aurea Duran DO [address] [place] [address] [facility] Start: 11-01-2024 End: 11-01-2024 Professional / ancillary services management 11/01/2024 2:30 PM EST Ancillary Procedure [facility] [address] [facility] [address] [facility] [id number] [facility] Start: 09-25-2024 End: 09-25-2024 Patient encounter procedure [facility] Comment on above: Arrived Start: 09-25-2024 End: 09-25-2025 aPTT in Blood by Coagulation assay APTT Lab Routine Menorrhagia with regular cycle Expected: 09/25/2024 (Approximate), Expires: 09/25/2025 [facility] Comment on above: Expected: 09/25/2024 (Approximate), Expires: 09/25/2025 Start: 09-25-2024 End: 09-25-2025 US Pelvis US Pelvis w/ TV Imaging Routine Menorrhagia with regular cycle Expected: 09/25/2024, Expires: 09/25/2025 [facility] Comment on above: Expected: 09/25/2024 , Expires: 09/25/2025 Start: 08-30-2024 End: 08-30-2024 Patient encounter procedure [facility] Comment on above: Arrived Start: 06-14-2024 End: 06-14-2024 Patient encounter procedure 06/14/2024 2:30 PM EDT Office Visit [facility] [address] [place] [address] Vance Bourgeois MD [address] [place] [address] Arrived [facility] Comment on above: Arrived Start: 05-13-2024 Influenza vaccination Influenza Vacc ine (#1) [facility] Start: 1980 Screening for malign ant neoplasm of colon [facility] CBC W Auto Different ial panel - Blood CBC and differential Lab Routine Menorrhagia with regular cycle Ordered: 09/25/2024 [facility] Work Phone: Comment on above: Ordered: 09/25/2024 hCG, quantitative, hCG, quantitative, Lab Routine Menorrhagia with regular cycle Ordered: 09/25/2024 [facility] Comment on above: Ordered: 09/25/2024 Hemoglobin A1c/Hemoglobin.total in Blood Hemoglobin A1c Lab Routine Menorrhagia with regular cycle Ordered: 09/25/2024 [facility] Comment on above: Ordered: 09/25/2024 Prothrombin time (PT ) in Blood by Coagulation assay Protime-INR Lab Routine Menorrhagia with regular cycle Ordered: 09/25/2024 [facility] Comment on above: Ordered: 09/25/2024 Thyrotropin [Units/volume] in Serum or Plasma TSH Lab Routine Menorrhagia with regular cycle Ordered: 09/25/2024 [facility] Comment on above: Ordered: 09/25/2024 Thyroxine (T4) free [Mass/volume] in Serum or Plasma T4, free Lab Routine Menorrhagia with regular cycle Ordered: 09/25/2024 [facility] Comment on above: Ordered: 09/25/2024 Payers Date Payer Category Payer Self-pay 2022 [facility] [id number] 2022 Unknown BCBS BCBS xxxxxx [id number] 2022-Present [phone] [address] [place] [address] [id number] 2022 [employer] [id number] 1978 Unknown [id number] 2.16.840.1.904086.3.579. 2.1286 1978 Unknown [id number] 2.16.840.1.578716.3.579. 2.1285 1978 Unknown [id number] 2.16.840.1.858729.3.579. 2.1286 1978 Unknown [id number] 2.16.840.1.208123.3.579. 2.1286 1978 Unknown [id number] 2.16.840.1.169747.3.579. 2.9 1978 Unknown [id number] 2.16.840.1.558580.3.579. 2.9 1978 Unknown [id number] 2.16.840.1.440106.3.579. 2.9 1978 Unknown [id number] 2.16.840.1.006382.3.579. 2.9 1978 Unknown [id number] 2.16.840.1.984612.3.579. 2.9 1978 Unknown [id number] 2.16.840.1.188423.3.579. 2.9 1978 Unknown [id number] 2.16.840.1.424955.3.579. 2.9 1978 Unknown [id number] 2.16.840.1.251897.3.579. 2.1259 1978 Unknown [id number] 2.16.840.1.247058.3.579. 2.1259 1978 Unknown [id number] 2.16.840.1.225647.3.579. 2.1259 1978 Unknown [id number] 2.16.840.1.181245.3.579. 2.1259 1978 Unknown [id number] 2.16.840.1.257027.3.579. 2.1259 Social History Date Type Detail Facility Unknown if ever smoked Forgotten [place] Other Start: 11-15-2023 End: 08-30-2024 Sex Assigned At [facility] Start: 1980 Sex Assigned At Female [facility] Start: 11-22-2023 Tobacco smoking status MSIS Never smoked tobacco [facility] Start: 11-22-2023 Tobacco use and exposure Smokeless tobacco non-user [facility] Start: 03-21-2024 End: 09-25-2024 Alcoholic beverage intake Ex-drinker (finding) [facility] Start: 11-15-2023 End: 08-30-2024 History of Social function [facility] Do you belong to any clubs or organizations such as rastafari groups, unions, fraternal or athletic groups, or school groups? No [facility] Are you now , , , , never or living with a partner? [facility] How often to you hav e a drink containing alcohol? Never [facility] How many standard dr inks containing alcohol do you have on a typical day? Patient does not drink [facility] How hard is it for y ou to pay for the very basics like food, housing, medical care, and heating Somewhat hard [facility] Do you feel stress - tense, restless, nervous, or anxious, or unable to sleep at night because your mind is troubled all the time - these days [OSQ] Very much [facility] (I/We) worried wheth er (my/our) food would run out before (I/we) got money to buy more. Sometimes true [facility] Start: 1980 Sex assigned at Not on file [facility] History of Present illness Narrative 09-25-2024 TOMASZ Meeks - 09/25/2024 2:50 PM EST Note Date & Type Note Facility 09-25-2024 History of Presen t illness Narrative Reason for Appointment: Patient ID: Mai Taylor is a 44 y.o. female who presents for Post-op Visit Patient presents today for Acute Visit. MEDICATIONS Current Outpatient Medications Medication Instructions amitriptyline (ELAVIL) 25 mg, Oral, Nightly cpmgsalhsr-agjwjtdqpmxin-pjudqpzk 50-325-40 MG tablet 1 tablet, Oral, 4 times daily PRN hydrOXYzine HCl (Atarax) 25 MG tablet TAKE 1 TABLET BY MOUTH 4 TIMES DAILY NEEDED FOR ITCHING ibuprofen 800 mg, Oral, 3 times daily PRN megestrol (MEGACE) 20 mg, Oral, Daily, Take 1 tablet 2 times daily for 3 days then take 1 tablet daily for 1 month (36 tablets total) rizatriptan (MAXALT) 10 mg, Oral, Once as needed, May repeat in 2 hours if unresolved. Do not exceed 30 mg in 24 hours. ALLERGIES Allergies Allergen Reactions Cefaclor Hives PROBLEMS Active Ambulatory Problems Diagnosis Date Noted Generalized anxiety disorder (CMS/HCC) 11/22/2023 Migraine without aura and without status migrainosus, not intractable ([facility]) 11/22/2023 Allergic rhinitis due to pollen 11/22/2023 Annual physical exam 11/22/2023 MDD (major depressive disorder), recurrent episode, moderate (CMS/HCC) 11/22/2023 Dysmenorrhea 08/30/2024 Resolved Ambulatory Problems Diagnosis Date Noted Acute bronchitis due to other specified organisms 06/14/2024 Past Medical History: Diagnosis Date KVNG (generalized anxiety disorder) (CMS/HCC) Migraine with aura and without status migrainosus, not intractable (CMS/HCC) Seasonal allergic rhinitis due to pollen HISTORY PAST MEDICAL HISTORY SOCIAL HISTORY Past Medical History: Diagnosis Date KVNG (generalized anxiety disorder) (CMS/HCC) Migraine with aura and without status migrainosus, not intractable (CMS/HCC) Seasonal allergic rhinitis due to pollen Social History Tobacco Use Smoking status: Never Smokeless tobacco: Never Substance Use Topics Alcohol use: Not Currently Drug use: Never FAMILY HISTORY Family History Problem Relation Name Age of Onset Cancer Father Heart disease Father Cancer Maternal Grandmother Cancer Maternal Grandfather Cancer Paternal Grandmother Cancer Paternal Grandfather SURGICAL HISTORY Past Surgical History: Procedure Laterality Date SECTION, LOW TRANSVERSE 1996 SECTION, LOW TRANSVERSE 1999 ENDOMETRIAL ABLATION 02/17/2024 TUBAL LIGATION Bilateral 02/17/2024 REVIEW OF SYSTEMS Review of Systems: Review of Systems Constitutional: Negative. HENT: Negative. Eyes: Negative. Respiratory: Negative. Cardiovascular: Negative. Gastrointestinal: Negative. Genitourinary: Negative. Musculoskeletal: Negative. Skin: Negative. Neurological: Negative. All other systems reviewed and are negative. Hematological: Negative. Endocrine: Negative. Allergic/Immunologic: Negative. OBJECTIVE Objective: Physical Exam Constitutional: Appearance: Normal appearance. She is normal weight. HENT: Head: Normocephalic. Cardiovascular: Rate and Rhythm: Normal rate. Pulses: Normal pulses. Pulmonary: Effort: Pulmonary effort is normal. Breath sounds: Normal breath sounds. Abdominal: Palpations: Abdomen is soft. Musculoskeletal: General: Normal range of motion. Neurological: General: No focal deficit present. Mental Status: She is alert and oriented to person, place, and time. Psychiatric: Mood and Affect: Mood normal. Behavior: Behavior normal. Thought Content: Thought content normal. Judgment: Judgment normal. Vitals and nursing note reviewed. Vitals: Estimated body mass index is 26.34 kg/m as calculated from the following: Height as of 08/30/24: 5' 2 . Weight as of this encounter: 144 lb. BP: 110/74 No LMP recorded. ASSESSMENT & PLAN ICD-10-CM 1. Postop check Z09 2. Menorrhagia with regular cycle N92.0 CBC and differential TSH hCG, quantitative, Protime-INR T4, free APTT Hemoglobin A1c US Pelvis w/ TV APTT megestrol (Megace) 20 MG tablet Patient presents for continued heavy menstral bleeding with pain. Pt seen today and wishes to proceed with hysterectomy. Procedure reviewed with patient and she agrees to surgical option. Patient given orders fo rlabs and US as procedure was 7 mo ago. She states she has been bleeding since April with only max of 2 weeks without bleeding. We will send in megace to start taking 2 pills bid for 3 days then daily for one month with a refill Documented by TOMASZ Meeks on behalf of: DO Mirella Howardally signed by TOMASZ Meeks at 09/25/2024 4:00 PM EST documented in this encounter [facility] History of Present illness Narrative 08-30-2024 Vance Bourgeois MD - 08/30/2024 3:10 PM Kain Bourgeois MD - 08/30/2024 3:10 PM Kain Bourgeois MD - 08/30/2024 3:09 PM Kain Bourgeois MD - 08/30/2024 3:09 PM EST Note Date & Type Note Facility 08-30-2024 History of Presen t illness Narrative Associated Problem(s): Migraine without aura and without status migrainosus, not intractable (CMS/HCC) CORTES controlled with elavil and continue. Use maxalt or fioricet PRN. Associated Problem(s): MDD (major depressive disorder), recurrent episode, moderate (CMS/HCC) Occasional symptoms but tolerable without medication and monitor. Associated Problem(s): Generalized anxiety disorder (CMS/HCC) Occasional symptoms but tolerable and use hydroxyzine PRN. Associated Problem(s): Dysmenorrhea Frequent symptoms and start motrin PRN. 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 Subjective Patient ID: Mai Taylor is a 44 y.o. female who presents for Follow-up (6m). Follow up migraines, depression, and anxiety. Patient stable today. Taking elavil and CORTES not as intense or often. Migraine about 2-3 times a month. Throbbing pain in entire head associated with photophobia, phonophobia and nausea. Using fioricet or maxalt PRN and helps when needed. Depression stable without medication. Occasional symptoms and at times down and sad but overall happier. Feels like symptoms tolerable without medication. Anxiety stable. Not as stressed out or overwhelmed. Not as nervous or worry as much. Not as padgett or irritable. Using hydroxyzine PRN and helps when needed. C/o severe cramping and irregular periods. Seen women's swim coach and had ablation. Scheduled next month. Requests motrin 800. Review of Systems Respiratory: Negative for cough, shortness of breath and wheezing. Cardiovascular: Negative for chest pain and palpitations. Gastrointestinal: Negative for abdominal pain, diarrhea, nausea and vomiting. Genitourinary: Negative for dysuria. Objective Physical Exam Constitutional: General: She is not in acute distress. Appearance: Normal appearance. HENT: Head: Normocephalic. Right Ear: Tympanic membrane normal. Left Ear: Tympanic membrane normal. Eyes: Extraocular Movements: Extraocular movements intact. Pupils: Pupils are equal, round, and reactive to light. Cardiovascular: Rate and Rhythm: Normal rate and regular rhythm. Heart sounds: No murmur heard. No friction rub. No gallop. Pulmonary: Effort: Pulmonary effort is normal. Breath sounds: Normal breath sounds. No wheezing, rhonchi or rales. Abdominal: General: Bowel sounds are normal. There is no distension. Palpations: Abdomen is soft. Tenderness: There is no abdominal tenderness. There is no guarding or rebound. Musculoskeletal: Cervical back: Neck supple. Right lower leg: No edema. Left lower leg: No edema. Neurological: Mental Status: She is alert. Assessment/Plan Problem List Items Addressed This Visit Generalized anxiety disorder (CMS/HCC) Occasional symptoms but tolerable and use hydroxyzine PRN. Migraine without aura and without status migrainosus, not intractable (CMS/HCC) - Primary CORTES controlled with elavil and continue. Use maxalt or fioricet PRN. Relevant Medications rizatriptan (Maxalt) 10 MG tablet jdfdwhdcnq-zkhrxadfhsiqe-aidqplcu 50-325-40 MG tablet MDD (major depressive disorder), recurrent episode, moderate (CMS/HCC) Occasional symptoms but tolerable without medication and monitor. Dysmenorrhea Frequent symptoms and start motrin PRN. 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 Relevant Medications ibuprofen 800 MG tablet documented in this encounter [facility] History of Present illness Narrative 06-14-2024 Vance Bourgeois MD - 06/14/2024 2:47 PM EDTMleo Bourgeois MD - 06/14/2024 2:30 PM EDT Note Date & Type Note Facility 06-14-2024 History of Presen t illness Narrative Associated Problem(s): Acute bronchitis due to other specified organisms Take antibiotics for 7 days. Use prednisone for inflammation. Use sudafed or other decongestants as needed. Use Robitussin or Robitussin-DM for cough. Can use afrin for congestion but no longer than 3 days. Can use Mucinex to bring up phlegm. Use Motrin or Tylenol as needed for fever, aches, or pains. Increase fluid intake and rest. Should improve over next 5-7 days and if no better or worse call for re-evaluation. Images from the original note were not included. Subjective Patient ID: Mai Taylor is a 43 y.o. female who presents for Follow-up (Er f/up [facility]). ER follow up from 06/06 for bronchitis. C/o cough, congestion, and rhinorrhea x 1 week. Mild cough and occasional sputum. Feels like phlegm in chest and not able to bring up. Increased congestion and rhinorrhea. Ears plugged and popping. C/o CORTES and sinus pressure in forehead and cheeks along with postnasal drip. Mild SOB. Afebrile. In ER gave albuterol and prednisone. C/o pain in chest with cough or inspiration. No improvement in symptoms since onset. Review of Systems Respiratory: Positive for cough. Negative for shortness of breath and wheezing. Cardiovascular: Positive for chest pain. Negative for palpitations. Gastrointestinal: Negative for abdominal pain, diarrhea, nausea and vomiting. Genitourinary: Negative for dysuria. Objective Physical Exam Constitutional: General: She is not in acute distress. Appearance: Normal appearance. HENT: Head: Normocephalic. Right Ear: Tympanic membrane normal. Left Ear: Tympanic membrane normal. Eyes: Extraocular Movements: Extraocular movements intact. Pupils: Pupils are equal, round, and reactive to light. Cardiovascular: Rate and Rhythm: Normal rate and regular rhythm. Heart sounds: No murmur heard. No friction rub. No gallop. Pulmonary: Effort: Pulmonary effort is normal. Breath sounds: Normal breath sounds. No wheezing, rhonchi or rales. Abdominal: General: Bowel sounds are normal. There is no distension. Palpations: Abdomen is soft. Tenderness: There is no abdominal tenderness. There is no guarding or rebound. Musculoskeletal: Cervical back: Neck supple. Right lower leg: No edema. Left lower leg: No edema. Neurological: Mental Status: She is alert. Assessment/Plan Problem List Items Addressed This Visit Acute bronchitis due to other specified organisms - Primary Take antibiotics for 7 days. Use prednisone for inflammation. Use sudafed or other decongestants as needed. Use Robitussin or Robitussin-DM for cough. Can use afrin for congestion but no longer than 3 days. Can use Mucinex to bring up phlegm. Use Motrin or Tylenol as needed for fever, aches, or pains. Increase fluid intake and rest. Should improve over next 5-7 days and if no better or worse call for re-evaluation. Relevant Medications levoFLOXacin (Levaquin) 750 MG tablet predniSONE (Deltasone) 10 MG tablet documented in this encounter [facility] Evaluation note 2023 Note Date & Type [...] no improvement in 2 to 3 days [employer] [place] Other Evaluation note Note Date & Type Note Facility Evaluation note No assessment information [facility] Work Phone: Evaluation note Note Date & Type Note Facility Evaluation note Diagnosis Acute bronchitis due to other specified organisms- Primary documented in this encounter [facility] Evaluation note Note Date & Type Note Facility Evaluation note Diagnosis MDD (major depressive disorder), recurrent episode, moderate (CMS/HCC)- Primary Generalized anxiety disorder (CMS/HCC) Generalized anxiety disorder Migraine with aura and without status migrainosus, not intractable (CMS/HCC) Annual physical exam Routine general medical examination at a health care facility Breast cancer screening by mammogram Colon cancer screening Special screening for malignant neoplasms, colon Migraine without aura and without status migrainosus, not intractable (CMS/HCC)- Primary MDD (major depressive disorder), recurrent episode, moderate (CMS/HCC) Generalized anxiety disorder (CMS/HCC) Generalized anxiety disorder Migraine without aura and without status migrainosus, not intractable (CMS/HCC)- Primary MDD (major depressive disorder), recurrent episode, moderate (CMS/HCC) Generalized anxiety disorder (CMS/HCC) Generalized anxiety disorder Dysmenorrhea documented in this encounter [facility] Evaluation note Note Date & Type Note Facility Evaluation note Diagnosis MDD (major depressive disorder), recurrent episode, moderate (CMS/HCC)- Primary Generalized anxiety disorder (CMS/HCC) Generalized anxiety disorder Migraine with aura and without status migrainosus, not intractable (CMS/HCC) Annual physical exam Routine general medical examination at a health care facility Breast cancer screening by mammogram Colon cancer screening Special screening for malignant neoplasms, colon Migraine without aura and without status migrainosus, not intractable (CMS/HCC)- Primary MDD (major depressive disorder), recurrent episode, moderate (CMS/HCC) Generalized anxiety disorder (CMS/HCC) Generalized anxiety disorder Migraine without aura and without status migrainosus, not intractable (CMS/HCC)- Primary MDD (major depressive disorder), recurrent episode, moderate (CMS/HCC) Generalized anxiety disorder (CMS/HCC) Generalized anxiety disorder Dysmenorrhea Postop check Follow-up examination, following unspecified surgery Menorrhagia with regular cycle documented in this encounter [facility] Advance Directives No Advanced Directives Records Found Advance Directive Response Recorded Date/ Time Advance Directives No October 3:27pm Summary Purpose Family History No Family History Records FoundNo Family History Records FoundNo Family History Records Found Additional Source Comments REASON FOR VISIT (unrecogniz ed section and content) Reason Comments Follow-up Er f/up [facility] Reason Comments Follow-up 6m Reason Comments Post-op Visit Care Teams (unrecognized sec tion and content) Team Status: Inactive Member Role Status Dates Aurea Duran Attending Provider Active Start: Arun samano 2023 End: January 23, 2024 Team Status: Inactive Member Role Status Dates Aurea Duran Attending Provider Active Start: Ligia 2023 End: February 17, 2024 Team Status: Active Member Role Status Dates [facility] Primary Care Provider Active Team Status: Inactive Member Role Status Dates Aurea Duran DO Attending Provider Active Start : January 23, 2024 End: January 23, 2024 Team Status: Inactive Member Role Status Dates Aurea Duran DO Attending Provider Active Start : February 17, 2024 End: February 17, 2024 Team Status: Inactive Member Role Status Dates Naya Doss APRN Attending Provider Active Start: April 09, 2024 End: April 09, 2024 [facility] Primary Care Provider Active Start: April 09, 2024 End: April 09, 2024 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 Start Date End Date Vance Bourgeois MD [address] [place] [phone] PCP - [place] [employer] 06/12/23 Vance Bourgeois MD [address] [place] [id number] PCP - General Family Medicine 10/17/23 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 Start Date End Date Vance Bourgeois MD [address] [place] [phone] PCP - [place] [employer] 06/12/23 Vance Bourgeois MD [address] [place] [phone] PCP - General Family Medicine 10/17/23 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 Start Date End Date Vance Bourgeois MD [address] [place] [phone] PCP - [place] [employer] 06/12/23 Vance Bourgeois MD [address] [place] [address] PCP - General Family Medicine 10/17/23 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 Start Date End Date Vance Bourgeois MD [address] [place] [address] PCP - [place] [employer] 06/12/23 Vance Bourgeois MD [address] [place] [phone] PCP - General Family Medicine 10/17/23 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 Start Date End Date Vance Bourgeois MD [address] [place] [phone] PCP - [place] [employer] 06/12/23 Vance Bourgeois MD [address] [place] [address] PCP - General Family Medicine 10/17/23 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 Start Date End Date Vance Bourgeois MD [address] [place] [address] PCP - [place] [employer] 06/12/23 Vance Bourgeois MD [address] [place] [address] PCP - General Family Medicine 10/17/23 Goals (unrecognized section and content) Goals may be documented in a n alternate section INFORMATION SOURCE (unrecogn ized section and content) DATE CREATED AUTHOR 02/18/2024 [facility] DATE CREATED AUTHOR AUTHOR'S IVAN ATION 06/21/2024 [facility] DATE CREATED AUTHOR AUTHOR'S ORGANIZ ATION 09/28/2024 [facility] FOR RECORDS PERTAINING TO PATIENTS WHO ARE [...] BE BASED ON THE PRIMARY CLINICAL RECORDS. [employer] provides no warranty or guarantee of the accuracy or completeness of information in this document.
--- NOTE | 2024-10-02 14:44 | US_ITS ---
[address] [address] Patient Name: ARLEN PALOMARES MRN: [id number] date: 1980 Sex: F Assigned Patient Location: US Current Patient Location: Accession/Order Number: [id number] Exam Date: 10/02/2024 14:45 Report Date: 10/02/2024 16:28 At the request of: AUREA EVERETT Procedure: US pelvis w/ transvaginal EXAMINATION: US pelvis w/ transvaginal HISTORY: Menorrhagia With Regular Cycle N92.0 COMPARISON: No relevant comparison available. TECHNIQUE: Transabdominal and/or transvaginal sonographic examination was performed as indicated by examination type. FINDINGS: UTERUS: Slightly heterogeneous echotexture. Otherwise normal size and appearance. Uterus size: 9.7 x 5.2 x 5.5 cm ENDOMETRIUM: Normal homogeneous appearance. Endometrial thickness: 9 mm RIGHT OVARY: Contains a 1.4 cm benign-appearing cyst. Duplex Doppler demonstrates normal waveform and flow; resistive index 0.7. Ovary size: 2.2 x 2.2 x 2.4 cm LEFT OVARY: Contains a benign-appearing 1.5 cm cyst. Duplex Doppler demonstrates normal waveform and flow; resistive index 0.3. Ovary size: 3.0 x 2.0 x 2.6 cm CUL-DE-SAC: Unremarkable. No significant free fluid. BLADDER: Unremarkable. OTHER: None. US/US pelvis w/ transvaginal IMPRESSION: 1. No specific findings to account for patient's symptoms. 2. Bilateral ovarian cysts; nonspecific but favoring benign etiology. Electronically authenticated by: CYNTHIA FARFAN Date: 10/02/2024 16:28
[2024-10-02 15:29] LABS: Basophils Absolute Auto 0.1 10^3/uL (0.0-0.1); Basophils Percent Auto 0.8 % (0.2-2.0); Eosinophils Absolute Auto 0.4 10^3/uL (0.0-0.7); Eosinophils Percent Auto 6.2 % (0.9-7.0); Immature Granulocytes Abs Auto 0.02 10^3/uL (0.00-0.03); Immature Granulocytes Pct Auto 0.3 % (0.0-0.5); Lymphocytes Absolute Auto 1.9 10^3/uL (1.2-3.8); Lymphocytes Percent Auto 29.9 % (20.5-60.0); Mean Corpuscular HGB Conc 34.1 g/dL (29.9-35.2); Mean Corpuscular Hemoglobin 29.7 pg (26.7-34.0); Mean Corpuscular Volume 86.9 fL (81.0-99.0); Mean Platelet Volume 8.6 fL (9.5-13.5); Monocytes Absolute Auto 0.7 10^3/uL (0.3-0.8); Monocytes Percent Auto 11.4 % (1.7-12.0); Neutrophils Absolute Auto 3.3 10^3/uL (1.4-6.5); Neutrophils Percent Auto 51.4 % (43.0-75.0); Platelet Count 324 10^3/uL (150-450); Red Blood Count 4.72 10^6/uL (4.20-5.40); Red Cell Distribution Width 12.3 % (11.0-15.0); White Blood Count 6.5 10^3/uL (4.0-11.0)
[2024-10-02 15:37] LABS: Estimated Average Glucose 103 mg/dL; Glycohemoglobin A1C 5.2 % (4.5-6.2)
[2024-10-02 15:47] LABS: Partial Thromboplastin Time 28.9 sec (22.3-36.2); Prothrombin Time 10.6 sec (9.0-11.6)
[2024-10-02 15:57] LABS: Thyroid Stimulating Hormone 3.735 uIU/mL (0.358-3.740)
[2024-10-02 16:00] LABS: HCG Quantitative <1 mIU/mL
[2024-10-02 16:47] LABS: Free T4 0.86 ng/dL (0.76-1.46)
== END 2024-10-02 11:01 | disposition home or self-care (01) ==
LOC: US 11:03
PROVIDERS: PCP Family Medicine; Visit Provider Obstetrics & Gynecology
DX: N92.0 Excessive and frequent menstruation with regular cycle (principal); N83.292 Other ovarian cyst, left side; N83.291 Other ovarian cyst, right side
CPT/HCPCS: 36415; 76830; 76856; 83036; 84439; 84443; 84702; 85025; 85610; 85730

== ENCOUNTER 2024-11-22 13:21 | Outpatient (OUT) | payer BC, SELFPAY ==
--- NOTE | 2024-11-22 13:29 | ECG_ITS ---
[facility] Test Date: 2024-11-22 Pat Name: ARLEN PALOMARES Department: Room: - Gender: Female [employer] Person: : 1980 Requested By: AUREA EVERETT Order Number: [id number] Reading MD: REGULO ROMAN M.D. Measurements Intervals [place] Rate: 76 P: 50 [place]: 155 QRS: -4 QRSD: 86 T: 22 QT: 365 QTc: 413 Interpretive Statements SINUS RHYTHM WITH SINUS ARRHYTHMIA NORMAL ECG Compared to ECG 02/10/2024 15:11:27 No significant changes Electronically Signed On 11-22-2024 20:27:41 EDT by REGULO ROMAN M.D.
--- OUTSIDE RECORDS SUMMARY | 2024-11-22 13:42 | XMS_ITS | CCD ---
Author Organization [facility] Care Team Providers Care Scientific Writer Name Role Phone Kajal Herrera Unavailable Aurea Duran Attending Provider [phone] Aurea Duran Admitting Unavailable RogerNkechi zaidiy Attending Unavailable Roger, Aurea Admitting Unavailable Roger, Aurea Attending Unavailable DO Aurea Duran Attending Provider VANCE BOURGEOIS Referring Unavailable VANCE BOURGEOIS Primary Care Unavailable VANCE BOURGEOIS Referring Unavailable VANCE BOURGEOIS Primary Care Unavailable VANCE BOURGEOIS Primary Care Unavailable FREDERIC ENGLISH Attending Unavailable VANCE BOURGEOIS Primary Care Unavailable SANJUANA WHITAKER Attending Unavailable Vance Bourgeois MD Unavailable Vance Bourgeois MD Primary Care Provider [phone] AUREA DURAN Attending Unavailable VANCE BOURGEOIS Attending Unavailable IMR MIRELES Attending Unavailable ROGER, AUREA Attending Unavailable MIR MIRELES Referring Unavailable AUREA DURAN Attending Unavailable VANCE BOURGEOIS Attending Unavailable ROGER, UAREA Attending Unavailable VANCE BOURGEOIS Attending Unavailable VANCE BOURGEOIS Attending Unavailable AUREA DURAN Attending Unavailable Allergies Allergy Classification Reported Allergen(s) Allergy Type Date of Onset Reaction(s) Facility Cephalosporins (antibiotic) (1 source) Cefaclor Drug Allergy 11-08-2023 [facility] Repository (12 sources) Cefaclor; Translations: [CEFACLOR] Drug Allergy 04-09-2024 Hives [facility] Repository Medications Current Medications Medication Drug Class(es) Dates Sig (Normalized) Sig (Original) acetaminophen 325 mg / butalbital 50 mg / caffeine 40 mg oral tablet (16 sources) Barbiturate, Central Nervous System Stimulant, Methylxanthine [...] 1 capsule by mouth every eight hours Wbnrlmjrjr-Kxemfiwgjnhhe-Bcii (Fioricet) 50-300-40 mg capsule Discontinued 1 CAP PO Every 8 hours November 08, 2023 1:00am April 09, 2024 2:27pm [id number] 200 actuat albuterol 0.09 mg/actuat metered dose inhaler (1 source) beta2-Adrenergic Agonist Start: 06-07-2024 albuterol HFA 90 mcg/act inhaler 06/07/2024 Active amitriptyline hydrochloride 25 mg oral tablet (14 sources) Tricyclic Antidepressant Start: 02-28-2024 take 1 tablet by mouth at bedtime amitriptyline (Elavil) 25 MG tablet Indications: Migraine without aura and without status migrainosus, not intractable (CMS/HCC) Take 1 tablet (25 mg) by mouth at bedtime 90 tablet 3 02/28/2024 Active take 1 tablet by kathleen every twenty-four hours Amitriptyline HCl 25 MG [...] 12:00am hydrOXYzine hydrochloride 25 mg oral tablet (13 sources) Antihistamine Start: 04-09-2024 End: 04-09-2025 take [...] 2024 12:00am ibuprofen 800 mg oral tablet (8 sources) Nonsteroidal Anti-inflammatory Drug Start: 08-30-2024 take [...] Active megestrol acetate 20 mg oral tablet (5 sources) Progestin Start: 11-12-2024 End: 12-12-2024 take 1 tablet by mouth once daily megestrol (Megace) 20 MG tablet Indications: Menorrhagia with regular cycle , Dyspareunia, female , Dysmenorrhea Take 1 tablet (20 mg total) by mouth Daily. 30 tablet 11/12/2024 12/12/2024 Active Start: 11-07-2024 take 1 tablet by kathleen th twice daily, then take 1 tablet by mouth once daily megestrol (Megace) 20 MG tablet TAKE 1 TABLET BY MOUTH TWICE DAILY FOR 3 DAYS THEN 1 ONCE DAILY FOR ONE MONTH 11/07/2024 Active Start: 09-25-2024 End: 10-28-2024 take 1 tablet [...] 10/28/2024 Active rizatriptan 10 mg oral tablet (16 sources) Serotonin-1b and Serotonin-1d Receptor Agonist Start: 11-08-2023 Rizatriptan Active 1 0 MG PO EVERY 2-4 HOURS November 08, [...] oral tablet (2 sources) alpha-Adrenergic Agonist, Uncompetitive R-uyzqap-I-aspartat e Receptor Antagonist, Sigma-1 Agonist Start: 11-08-2023 [...] spray,suspension Discontinued 1 SPRAY INTRANASAL Twice daily November 08, 2023 1:00am April 09, 2024 [...] Classification Problem Date Documented Da te Episodic/Chronic Abdominal pain (1 source) Pain in female pelvis; Translations: [Pelvic and perineal pain] 11-12-2024 Episodic Anxiety disorders (14 sources) Generalized anxiety disorder; Translations: [Generalized anxiety disorder] Onset: 11-22-2023 11-22-2023 Chronic Chronic obstructive pulmonary disease and bronchiectasis (1 source) Bronchitis, not specified as acute or chronic; Translations: [Bronchitis, not specified as acute or chronic] Onset: 06-06-2024 Episodic Fluid and electrolyte disorders (1 source) Hypokalemia; Translations: [Hypokalemia] Onset: 06-06-2024 Episodic Headache; including migraine (14 sources) Migraine without aura, not refractory ; Translations: [Migraine without aura, not intractable, without status migrainosus] Onset: 11-22-2023 02-28-2024 Chronic Menstrual disorders (14 sources) Dysmenorrhea; Translations: [Dysmenorrhea, unspecified] Onset: 08-30-2024 08-30-2024 Chronic Mood disorders (14 sources) Moderate recurrent major depression; Translations: [Major depressive disorder, recurrent, moderate] Onset: 11-22-2023 11-22-2023 Chronic Nonspecific chest pain (2 sources) Chest pain, unspecified; Translations: [Chest pain] Onset: 06-06-2024 Episodic Other aftercare (2 sources) Surgical follow-up; Translations: [Encounter for follow-up examination after completed treatment for conditions other than malignant neoplasm] 09-25-2024 Episodic Other female genital disorders (1 source) Pain in female genitalia on intercourse; Translations: [Unspecified dyspareunia] 11-12-2024 Chronic Other lower respiratory disease (1 source) Rib pain Onset: 06-19-2024 Episodic Other upper respiratory disease (12 sources) Allergic rhinitis due to pollen; Translations: [...] Date Documented Da te Episodic/Chronic Acute bronchitis (13 sources) Acute infective bronchitis; Translations: [Acute bronchitis due to other specified organisms] Onset: 06-14-2024 Resolved: 08-30-2024 06-14-2024 Episodic Other screening for suspected conditions (not mental disorders or infectious disease) (1 source) Encounter for screening mammogram for malignant neoplasm of breast; Translations: [Encounter for screening mammogram for malignant neoplasm of breast] Onset: 12-07-2023 Episodic Results Test Name Value Interpretation Reference Range Facility ALL CBC WITH AUTO DIFFon BASOPHILS ABSOLUTE AUTO 0.1 [facility] Basophils/100 WBC (Bld) 0.8 % 0.2 - 2.0 % [facility] Eosinophils/100 WBC (Bld) 6.2 % 0.9 - 7.0 % [facility] Erythrocyte distribution width (RBC) [Ratio] 12.3 % 11.0 - 15.0 % [facility] Hematocrit (Bld) [Volume fraction] 41 % 36.0 - 48.0 % [facility] Hem[facility] (Bld) [Mass/Vol] 14 g/dL 12.0 - 16.0 g/dL [facility] IMMATURE GRANULOCYTES ABS AUTO 0.02 [facility] Immature granulocytes/100 WBC (Bld) 0.3 % 0.0 - 0.5 % [facility] Interpretation and review of laboratory results [facility]normal [facility] LYMPHOC[facility]TES ABSOLUTE AUTO 1.9 [facility] Lymphocytes/100 WBC (Bld) 29.9 % 20.5 - 60.0 % [facility] MCH (RBC) [Entitic mass] 29.7 pg 26.7 - 34.0 pg [facility] MCHC (RBC) [Mass/Vol] 34.1 g/dL 29.9 - 35.2 g/dL [facility] MCV (RBC) [Entitic vol] 86.9 fL 81.0 - 99.0 fL [facility] MONOCYTES ABSOLUTE AUTO 0.7 [facility] Monocytes/100 WBC (Bld) 11.4 % 1.7 - 12.0 % [facility] NEUTROPHILS ABSOLUTE AUTO 3.3 [facility] Neutrophils/100 WBC (Bld) 51.4 % 43.0 - 75.0 % [facility] Platelet mean volume (Bld) [Entitic vol] 8.6 fL Low 9.5 - 13.5 fL [facility] E[facility] # [facility].4 [facility]T 324 [facility] RBC 4.72 [facility] WBC 6.5 [facility] X[facility] RIBS RT 3 VWS W PA [...] Claude Hinds MD on 06/19/2024 3:12 PM IAftab MD have personally reviewed the image(s) and agree with and/or edited the report Finalized by Aftab Oh MD on 06/19/2024 3:[address] [facility] CBC AND AUTO DIFFon 06-06-20 24 ABSOLUTE BASOPHIL 0.0 X10E9/L Normal 0.0-0.2 [facility] Comment on above: Performed By: #### C PETER BAIRES, 52160-0, 90235-8 #### [facility] ([id number]) [address] [place] [address], [place] [address] ABSOLUTE NEUTROPHIL 8.7 X10E9/L High 1.5-6.[address] [facility] Comment on above: Performed By: #### C PETER BAIRES, , 80412-1 #### [facility] ([id number]) [address] [place] [address]278 Basophils/100 WBC (Bld) 0.3 % Normal [facility] Comment on above: Performed By: #### C VIRY, CMP, , 74570-6 #### [facility] ([id number]) [address] [place] [address]42 Eosinophils (Bld) [#/Vol] 0.4 10*3/uL Normal 0.0-0.[address] [facility] Comment on above: Performed By: #### Victorino BAIRES, CMP, , 38655-0 #### [facility] ([id number]) [address] [place] [address]20 Eosinophils/100 WBC (Bld) 3.5 % Normal [facility] Comment on above: Performed By: #### C VIRY, CMP, , 82611-3 #### [facility] ([id number]) [address] [place] [address]885 Erythrocyte distribution width (RBC) [Ratio] 12.8 % Normal 11.5-15.[address] [facility] Comment on above: Performed By: #### C VIRY, CMP, , 28977-3 #### [facility] ([id number]) [address] [place] [address]10 Hematocrit (Bld) [Volume fraction] 39.1 % Normal 35-[address] [facility] Comment on above: Performed By: #### C BCA, CMP, , 61256-0 #### [facility] ([id number]) [address] [place] [address]2531 Hemoglobin (Bld) [Mass/Vol] 13.3 g/dL Normal 11.7-15.[address] [facility] Comment on above: Performed By: #### C VIRY, PETER, , 38369-1 #### [facility] ([id number]) [address] [place] [address] 94906 Lymphocytes (Bld) [#/Vol] 1.4 10*3/uL Normal 1.0-3.[address] [facility] Comment on above: Performed By: #### C VIRY, PETER, , 32709-1 #### [facility] ([id number]) [address] [place] [address] 33563 Lymphocytes/100 WBC (Bld) 12.3 % Normal [facility] Comment on above: Performed By: #### C PETER BAIRES, , 76782-1 #### [facility] ([id number]) [address] [place] [address] 26053 MCH (RBC) [Entitic mass] 29.3 pg Normal 27-[address] [facility] Comment on above: Performed By: #### C PETER BAIRES, , 72803-6 #### [facility] ([id number]) [address] [place] [address] 23876 MCHC (RBC) [Mass/Vol] 34.0 g/dL Normal 32-[address] [facility] Comment on above: Performed By: #### C PETER BAIRES, , 55612-2 #### [facility] ([id number]) [address] [place] [address]255 MCV (RBC) [Entitic vol] 86 fL Normal 80-[address] [facility] Comment on above: Performed By: #### C VIRY CMP, , 87634-8 #### [facility] ([id number]) [address] [place] [address] 23092 Monocytes (Bld) [#/Vol] 0.9 10*3/uL Normal 0-0.[address] [facility] Comment on above: Performed By: #### C VIRY, CMP, , 41536-2 #### [facility] ([id number]) [address] [place] [address] 04317 Monocytes/100 WBC (Bld) 8.2 % Normal [facility] Comment on above: Performed By: #### Victorino BCA, CMP, , 26259-3 #### [facility] ([id number]) [address] [place] [address]251 Neutrophils/100 WBC (Bld) 75.7 % Normal [facility] Comment on above: Performed By: #### Victorino BAIRES, CMP, , 76664-9 #### [facility] ([id number]) [address] [place] [address]950 Platelet mean volume (Bld) [Entitic vol] 7.0 fL Normal 7-[address] [facility] Comment on above: Performed By: #### Victorino BAIRES, CMP, , 28770-6 #### [facility] ([id number]) [address] [place] [address] 00071 Platelets (Bld) [#/Vol] 310 10*3/uL Normal 150-[address] [facility] Comment on above: Performed By: #### Victorino BCA, CMP, , 03296-0 #### [facility] ([id number]) [address] [place] [address] 57236 RBC COUNT 4.55 X10E12/L Normal 3.80-5.[address] [facility] Comment on above: Performed By: #### Victorino BCA, CMP, , 45780-8 #### [facility] ([id number]) [address] [place] [address] 58417 WBC (Bld) [#/Vol] 11.6 10*3/uL High 4.0-11.0 [facility] Comment on above: Performed By: #### C BCA, [facility], 53946-2, 25923-7 #### [facility] ([id number]) [address] [facility], [place] [address] COMPREHENSIVE METABOLIC PANE Alvino 06-06-2024 Albumin [Mass/Vol] 4.0 g/dL Normal 3.2-5.3 [facility] Comment on above: Performed By: #### C BCA, BMP, 69111-7, LIVR, 3016-3 #### [facility] ([id number]) [address], [address] [place] [address] ALP [Catalytic activity/Vol] 70 U/L Normal 39-[address] [facility] Comment on above: Performed By: #### C BCA, BMP, 60177-8, LIVR, 3016-3 #### [facility] ([id number]) [address], [address] [place] [address] ALT [Catalytic activity/Vol] 31 U/L Normal 0-[address] [facility] Comment on above: Performed By: #### C BCA, BMP, 91573-7, LIVR, 3016-3 #### [facility] ([id number]) [address], [address] [place] [address] Anion gap [Moles/Vol] 8 mmol/L Normal 5-[address] [facility] Comment on above: Performed By: #### C BCA, BMP, 13053-4, LIVR, 3016-3 #### [facility] ([id number]) [address], [address] [place] [address] AST [Catalytic activity/Vol] 21 U/L Normal 0-[address] [facility] Comment on above: Performed By: #### C BCA, BMP, 76727-1, LIVR, 3016-3 #### [facility] ([id number]) [address], [address] [place] [address] Bilirubin [Mass/Vol] 0.3 mg/dL Normal 0.3-1.[address] [facility] Comment on above: Performed By: #### C BCA, BMP, 06522-7, LIVR, 3016-3 #### [facility] ([id number]) [address], [address] [place] [address] Calcium [Mass/Vol] 8.7 mg/dL Normal 8.5-10.5 [facility] Comment on above: Performed By: #### C BCA, BMP, 15722-6, LIVR, 3016-3 #### [facility] ([id number]) [address], [address] [place] [address] Chloride [Moles/Vol] 105 mmol/L Normal 98-[address] [facility] Comment on above: Performed By: #### C BCA, BMP, 04572-1, LIVR, 3016-3 #### [facility] ([id number]) [address], [facility] [address] [place] [address] CO2 [Moles/Vol] 24 mmol/L Normal 22-[address] [facility] Comment on above: Performed By: #### C BCA, BMP, 32534-4, LIVR, 3016-3 #### [facility] ([id number]) [address], [address] [place] [address] Creatinine [Mass/Vol] 0.65 mg/dL Normal 0.40-1.[address] [facility] Comment on above: Result Comment: METH OD TRACEABLE TO IDMS STANDARD Performed By: #### C BCA, BMP, 08841-0, LIVR, 3016-3 #### [facility] ([id number]) [address] [address] [place] [address] eGFR (CKD-EPI) NON-RACE DEPENDENT >90 Normal >[address] [facility] Comment on above: Result Comment: Reported eGFR is based on the CKD-EPI 2020 equation that does not use a race coefficient. Performed By: #### C BCA, BMP, 60786-4, LIVR, 3016-3 #### [facility] ([id number]) [address] [address] [place] [address] Glucose [Mass/Vol] 98 mg/dL Normal 65-99 [facility] Comment on above: Performed By: #### C BCA, BMP, 05443-6, LIVR, 3016-3 #### [facility] ([id number]) [address], [address] [place] [address] Potassium [Moles/Vol] 3.3 mmol/L Low 3.5-5.[address] [facility] Comment on above: Performed By: #### C BCA, BMP, 97021-5, LIVR, 3016-3 #### [facility] ([id number]) [address] [address] [place] [address] Protein [Mass/Vol] 7.6 g/dL Normal 6.0-8.0 [facility] Comment on above: Performed By: #### C BCA, BMP, 71145-7, LIVR, 3016-3 #### [facility] ([id number]) [address] [address] [place] [address] Sodium [Moles/Vol] 137 mmol/L Normal 134-146 [facility] Comment on above: Performed By: #### C BCA, BMP, 57382-3, LIVR, 3016-3 #### [facility] ([id number]) [address] [address] [place] [address] Urea nitrogen [Mass/Vol] 8 mg/dL Normal 5-[address] [facility] Comment on above: Performed By: #### C BCA, BMP, 85074-8, LIVR, 3016-3 #### [facility] ([id number]) [address], [address] [place] [address] MAGNESIUMon 06-06-2024 Magnesium [Mass/Vol] 2.0 mg/dL Normal 1.8-2.[address] [facility] Comment on above: Performed By: #### C BCA, BMP, 19907-5, LIVR, 3016-3 #### [facility] ([id number]) [address] [facility] [place] [address] SARS/FLU A+B/RSV by NAAT/Mol ecularon 06-06-2024 SARS/FLU [...] operators who are performing tests using either [employer] or [employer] systems and is limited to laboratories that [...] specimen repeat. Fact Sheet for Healthcare Providers: https://www.fda.gov/nh lilly/738487/download Fact Sheet for Patients: https://www.fda.gov/nh lilly/494943/download Normal [facility] Comment on above: Performed By: #### C OVFLR #### [facility] ([id number]) [address] [place] [address], [place] [address] Troponin I.cardiac High sens itivity method [Mass/Vol]on 06-06-2024 1 HOUR TROP I, HIGH SENSITIVITY <2 Normal <[address] [facility] Comment on above: Performed By: #### C BCA, BMP, 05859-7, LIVR, 3016-3 #### [facility] ([id number]) [address], [address] [place] [address] TROPONIN I, HIGH SENSITIVITY <2 Normal <[address] [facility] Comment on above: Performed By: #### C BCA, BMP, 26587-8, LIVR, 3016-3 #### [facility] ([id number]) [address], [address] [place] [address] XR CHEST 1 VWon 06-06-2024 XR CHEST [...] Aftab Salazar on 06/06/2024 3:[address] [facility] Alvino 01-23-2024 L Specimen: [id number] Received: 01/25/24 Status: SOUT Re Num: [id number] Spec Type: Surgical Subm Dr: Aurea Duran Tissues: A Endometrium - Biopsy (EMB) B Endocervix - Curettings (ECC) Procedures: HE/4, Gross/Micro L4/2 Age/ Patient Sex Location Account Attending Physician Mai Taylor 43/F LABE[facility] [id number] Aurea Duran SPEC NUM: [id number] RECD: 01/25/24 STATUS: JOANIE GARCIA NUM: [id number] KULWANT: 01/23/24-[address] [facility] [address]: Aurea Duran ENTERED: 01/25/[address] [facility] [address]: Jose,Lab SPEC TYPE: Surgical DEPT: LOIDA [...] regular cycle, pelvic congestion syndrome CPT Codes 42648d7 ---- ---- Specimen: [id number] Received: 01/25/24 Status: JOANIE Garcia Num: [id number] Spec Type: Surgical Subm Dr: Aurea Duran Tissues: A Endometrium - Biopsy (EMB) B Endocervix - Curettings (ECC) Procedures: HE/4, Gross/Micro L4/2 ---- Patient: BrandonMai [id number] (Continued) ---- Signed (signature on file) Emani Ramirez MD 01/26/24 1419 Normal [facility] 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 Comment on above: Performed By: #### C BCA, BMP, 04073-6, LIVR, 3016-3 #### [facility] ([id number]) [address], [address] [place] [address] Calcium [Mass/Vol] 9.5 mg/dL Normal 8.5-10.5 [facility] Comment on above: Performed By: #### C BCA, BMP, 71524-8, LIVR, 3016-3 #### [facility] ([id number]) [address], [address] [place] [address] Chloride [Moles/Vol] 105 mmol/L Normal 98-[address] [facility] Comment on above: Performed By: #### C BCA, BMP, 75299-9, LIVR, 3016-3 #### [facility] ([id number]) [address], [address] [place] [address] CO2 [Moles/Vol] 25 mmol/L Normal 22-[address] [facility] Comment on above: Performed By: #### C BCA, BMP, 49167-5, LIVR, 3016-3 #### [facility] ([id number]) [address], [address] [place] [address] Creatinine [Mass/Vol] 0.85 mg/dL Normal 0.40-1.[address] [facility] Comment on above: Result Comment: METH OD TRACEABLE TO IDMS STANDARD Performed By: #### C BCA, BMP, 82908-5, LIVR, 3016-3 #### [facility] ([id number]) [address], [address] [place] [address] GFR/1.73 sq M.predicted among non-blacks MDRD (S/P/Bld) [Vol rate/Area] 86 mL/min/{1.73_m2} Normal >[address] [facility] Comment on above: Result Comment: Reported eGFR is based on the CKD-EPI 2020 equation that does not use a race coefficient. Performed By: #### C BCA, BMP, 48612-4, LIVR, 3016-3 #### [facility] ([id number]) [address], [address] [place] [address] Glucose [Mass/Vol] 69 mg/dL Normal 65-99 [facility] Comment on above: Performed By: #### C BCA, BMP, 99814-2, LIVR, 6-3 #### [facility] ([id number]) [address], [address] [place] [address] Potassium [Moles/Vol] 3.4 mmol/L Low 3.5-5.[address] [facility] Comment on above: Performed By: #### C BCA, BMP, 49385-8, LIVR, 3016-3 #### [facility] ([id number]) [address], [address] [place] [address] Sodium [Moles/Vol] 141 mmol/L Normal 134-146 [facility] Comment on above: Performed By: #### C BCA, BMP, 42679-1, LIVR, 3015- #### [facility] ([id number]) [address], [address] [place] [address] Urea nitrogen [Mass/Vol] 9 mg/dL Normal 5-[address] [facility] Comment on above: Performed By: #### C BCA, BMP, 94833-9, LIVR, 3016-3 #### [facility] ([id number]) [address], [address] [place] [address] CBC AND AUTO DIFFon 11-28-19 24 ABSOLUTE BASOPHIL 0.1 X10E9/L Normal 0.0-0.2 [facility] Comment on above: Performed By: #### C BCA, BMP, 71187-6, LIVR, 3016-3 #### [facility] ([id number]) [address], [address] [place] [address] ABSOLUTE NEUTROPHIL 3.9 X10E9/L Normal 1.5-6.[address] [facility] Comment on above: Performed By: #### C BCA, BMP, 25277-7, LIVR, 3015- #### [facility] ([id number]) [address], [address] [place] [address] Basophils/100 WBC (Bld) 0.8 % Normal [facility] Comment on above: Performed By: #### C BCA, BMP, 45306-0, LIVR, 3015-11 #### [facility] ([id number]) [address], [address] [place] [address] Eosinophils (Bld) [#/Vol] 0.1 10*3/uL Normal 0.0-0.[address] [facility] Comment on above: Performed By: #### C BCA, BMP, 14870-8, LIVR, 3015-11 #### [facility] ([id number]) [address], [address] [place] [address] Eosinophils/100 WBC (Bld) 1.6 % Normal [facility] Comment on above: Performed By: #### C BCA, BMP, 20025-8, LIVR, 3015- #### [facility] ([id number]) [address], [address] [place] [address] Erythrocyte distribution width (RBC) [Ratio] 12.7 % Normal 11.5-15.[address] [facility] Comment on above: Performed By: #### C BCA, BMP, 86970-7, LIVR, 3015- #### [facility] ([id number]) [address], [address] [place] [address] Hematocrit (Bld) [Volume fraction] 42.5 % Normal 35-[address] [facility] Comment on above: Performed By: #### C BCA, BMP, 49071-6, LIVR, 3016-3 #### [facility] ([id number]) [address], [address] [place] [address] Hemoglobin (Bld) [Mass/Vol] 14.3 g/dL Normal 11.7-15.[address] [facility] Comment on above: Performed By: #### C BCA, BMP, 59247-4, LIVR, 6-3 #### [facility] ([id number]) [address], [address] [place] [address] Lymphocytes (Bld) [#/Vol] 2.3 10*3/uL Normal 1.0-3.[address] [facility] Comment on above: Performed By: #### C BCA, BMP, 55822-2, LIVR, 3016-3 #### [facility] ([id number]) [address], [address] [place] [address] Lymphocytes/100 WBC (Bld) 33.2 % Normal [facility] Comment on above: Performed By: #### C BCA, BMP, 93195-7, LIVR, 3015- #### [facility] ([id number]) [address], [address] [place] [address] MCH (RBC) [Entitic mass] 29.4 pg Normal 27-[address] [facility] Comment on above: Performed By: #### C BCA, BMP, 64769-2, LIVR, 3015- #### [facility] ([id number]) [address], [address] [place] [address] MCHC (RBC) [Mass/Vol] 33.6 g/dL Normal 32-[address] [facility] Comment on above: Performed By: #### C BCA, BMP, 30632-1, LIVR, 3016-3 #### [facility] ([id number]) [address], [address] [place] [address] MCV (RBC) [Entitic vol] 88 fL Normal 80-[address] [facility] Comment on above: Performed By: #### C BCA, BMP, 41785-5, LIVR, 301- #### [facility] ([id number]) [address], [facility] [address] [place] [address] Monocytes (Bld) [#/Vol] 0.5 10*3/uL Normal 0-0.[address] [facility] Comment on above: Performed By: #### C BCA, BMP, 58048-0, LIVR, 3015- #### [facility] ([id number]) [address], [address] [place] [address] Monocytes/100 WBC (Bld) 7.5 % Normal [facility] Comment on above: Performed By: #### Victorino BCA, BMP, 92512-0, LIVR, 3015- #### [facility] ([id number]) [address], [address] [place] [address] Neutrophils/100 WBC (Bld) 56.9 % Normal [facility] Comment on above: Performed By: #### C BCA, BMP, 76182-3, LIVR, 3015-11 #### [facility] ([id number]) [address], [address] [place] [address] Platelet mean volume (Bld) [Entitic vol] 7.3 fL Normal 7-[address] [facility] Comment on above: Performed By: #### C BCA, BMP, 86991-1, LIVR, 3015- #### [facility] ([id number]) [address], [facility] [address] [place] [address] Platelets (Bld) [#/Vol] 392 10*3/uL Normal 150-[address] [facility] Comment on above: Performed By: #### C BCA, BMP, 77080-1, LIVR, 3016- #### [facility] ([id number]) [address], [address] [place] [address] RBC COUNT 4.85 X10E12/L Normal 3.80-5.[address] [facility] Comment on above: Performed By: #### C BCA, BMP, 92029-1, LIVR, 3016-3 #### [facility] ([id number]) [address], [facility] [address] [place] [address] WBC (Bld) [#/Vol] 6.8 10*3/uL Normal 4.0-11.0 [facility] Comment on above: Performed By: #### C BCA, BMP, 01652-5, LIVR, 3015-3 #### [facility] ([id number]) [address] [address] [place] [address] HGB A1C (GLYCO-HGB)on 2023 Glucose [Mass/Vol] 103 mg/dL Normal [facility] Comment on above: Performed By: #### C BCA, BMP, 02267-2, LIVR, 3 #### [facility] ([id number]) [address] [address] HbA1c (Bld) [Mass fraction] 5.2 % Normal 4.4-5.[address] [facility] Comment on above: Result Comment: NOTE ADA Guidelines Result HgbA1c Normal : less than 5.7 % Prediabetes : 5.7 % to 6.4 % Diabetes : > 6.4 % Use with caution in patients with abnormal hemoglobin variants as the half-life of red blood cells and in vivo glycation rates are affected. Performed By: #### C BCA, BMP, 14580-7, LIVR, 3016-3 #### [facility] ([id number]) [address] [address] [place] [address] LIVER PANELon 03-18-2024 Albumin [Mass/Vol] 4.2 g/dL Normal 3.2-5.3 [facility] Comment on above: Performed By: #### C BCA, BMP, 40513-5, LIVR, 3016-3 #### [facility] ([id number]) [address], [address] [place] [address] ALP [Catalytic activity/Vol] 59 U/L Normal 39-[address] [facility] Comment on above: Performed By: #### C BCA, BMP, 65198-4, LIVR, 3016-3 #### [facility] ([id number]) [address], [address] [place] [address] ALT [Catalytic activity/Vol] 25 U/L Normal 0-[address] [facility] Comment on above: Performed By: #### C BCA, BMP, 75003-7, LIVR, 3016-3 #### [facility] ([id number]) [address], [address] [place] [address] AST [Catalytic activity/Vol] 20 U/L Normal 0-[address] [facility] Comment on above: Performed By: #### C BCA, BMP, 97402-7, LIVR, 3016-3 #### [facility] ([id number]) [address], [address] [place] [address] Bilirubin [Mass/Vol] 0.3 mg/dL Normal 0.3-1.[address] [facility] Comment on above: Performed By: #### C BCA, BMP, 54046-1, LIVR, 3016-3 #### [facility] ([id number]) [address], [address] [place] [address] Bilirubin.direct [Mass/Vol] 0.1 mg/dL Normal 0.0-0.[address] [facility] Comment on above: Performed By: #### C BCA, BMP, 87001-0, LIVR, 3016-3 #### [facility] ([id number]) [address] [address] [place] [address] Protein [Mass/Vol] 7.5 g/dL Normal 6.0-8.0 [facility] Comment on above: Performed By: #### C BCA, BMP, 24274-3, LIVR, 3016-3 #### [facility] ([id number]) [address] [address] Lipid 1996 panelon 4 Cholesterol [Mass/Vol] 205 mg/dL High 150-[address] [facility] Comment on above: Performed By: #### C BCA, BMP, 27743-8, LIVR, 3016-3 #### [facility] ([id number]) [address] [address] Cholesterol in HDL [Mass/Vol] 39 mg/dL Low >[address] [facility] Comment on above: Result Comment: HDL <40 mg/dL - High Risk HDL > or = 40mg/dL- Desirable HDL >60 mg/dL - Negative Risk Performed By: #### C BCA, BMP, 10617-6, LIVR, 3016-3 #### [facility] ([id number]) [address] [address] Cholesterol in LDL [Mass/Vol] 134 mg/dL High <[address] [facility] Comment on above: Result Comment: LDL <100 mg/dL - Desirable LDL >160 mg/dL - High Risk Performed By: #### C BCA, BMP, 03791-7, LIVR, 3016-3 #### [facility] ([id number]) [address] [place] [address] Cholesterol in VLDL [Mass/Vol] 32 mg/dL High 0-[address] [facility] Comment on above: Performed By: #### C BCA, BMP, 77168-2, LIVR, 3016-3 #### [facility] ([id number]) [address], [address] [place] [address] CHOLESTEROL:HDL 5.3 High 1.0-5.[address] [facility] Comment on above: Performed By: #### C BCA, BMP, 09540-7, LIVR, 3016-3 #### [facility] ([id number]) [address], [address] [place] [address] Triglyceride [Mass/Vol] 158 mg/dL High 27-[address] [facility] Comment on above: Performed By: #### C BCA, BMP, 39078-5, LIVR, 3016-3 #### [facility] ([id number]) [address], [address] [place] [address] TSH Qnon 11-28-2023 TSH 2.66 uIU/mL Normal 0.49-4.[address] [facility] Comment on above: Performed By: #### C BCA, BMP, 93250-0, LIVR, 3016-3 #### [facility] ([id number]) [address], [address] [place] [address] Vital Signs Date Time Vital Sign Value Performing Clinician Facility 11-12-2024 15:14-0500 Body mass index (BMI) [Ratio] 26.16 kg/m2 [employer] Work Phone: [facility] 11-12-2024 15:14-050 Body weight 64.86 kg [employer] Work Phone: [facility] 11-12-2024 15:14-0500 Diastolic blood pressure 72 mm[Hg] [employer] Work Phone: [facility] 11-12-2024 15:14-0500 Systolic blood pressure 118 mm[Hg] Aurea Roger DO Work Phone: [facility] 09-25-2024 15:18-0500 Body mass index (BMI) [Ratio] 26.34 kg/m2 Aurea Roger DO Work Phone: [facility] 09-25-2024 15:18-0500 Body weight 65.32 kg Aurea Roger DO Work Phone: [facility] 09-25-2024 15:18-0500 Diastolic blood pressure 74 mm[Hg] Aurea Roger DO Work Phone: [facility] 09-25-2024 15:18-0500 Systolic blood pressure 110 mm[Hg] Aurea Roger DO Work Phone: [facility] 08-30-2024 14:39-0500 Body height 157.5 cm Vance Bourgeois MD Work Phone: [facility] 08-30-2024 14:39-0500 Body mass index (BMI) [Ratio] 26.34 kg/m2 Vance Bourgeois MD Work Phone: [facility] 08-30-2024 14:39-0500 Body temperature 98.2 [degF] Vance Bourgeois MD Work Phone: [facility] 08-30-2024 14:39-0500 Body weight 65.32 kg Vance Bourgeois MD Work Phone: [facility] 08-30-2024 14:39-0500 Diastolic blood pressure 64 mm[Hg] Vance Bourgeois MD Work Phone: [facility] 08-30-2024 14:39-0500 Heart rate 74 /min Vance Bourgeois MD Work Phone: [facility] 08-30-2024 14:39-0500 Respiratory rate 20 /min Vance Bourgeois MD Work Phone: [facility] 08-30-2024 14:39-0500 SaO2% (BldA) [Mass fraction] 97 % Vance Bourgeois MD Work Phone: [facility] 08-30-2024 14:39-0500 Systolic blood pressure 106 mm[Hg] Vance Bourgeois MD Work Phone: [facility] 06-14-2024 14:30-0400 Body height 157.5 cm Vance Bourgeois MD Work Phone: [facility] 06-14-2024 14:30-0400 Body mass index (BMI) [Ratio] 26.52 kg/m2 Vance Bourgeois MD Work Phone: [facility] 06-14-2024 14:30-0400 Body temperature 97.81 [degF] Vance Bourgeois MD Work Phone: [facility] 06-14-2024 14:30-0400 Body weight 65.77 kg Vance Bourgeois MD Work Phone: [facility] 06-14-2024 14:30-0400 Diastolic blood pressure 58 mm[Hg] Vance Bourgeois MD Work Phone: [facility] 06-14-2024 14:30-0400 Heart rate 95 /min Vance Bourgeois MD Work Phone: [facility] 06-14-2024 14:30-0400 Respiratory rate 22 /min Vance Bourgeois MD Work Phone: [facility] 06-14-2024 14:30-0400 SaO2% (BldA) [Mass fraction] 98 % Vance Bourgeois MD Work Phone: [facility] 06-14-2024 14:30-0400 Systolic blood pressure 110 mm[Hg] Vance Bourgeois MD Work Phone: [facility] 04-09-2024 14:28-0400 Body height 158.75 cm DO Aurea Roger Work Phone: [facility] 04-09-2024 14:28-0400 Body mass index (BMI) [Ratio] 25.2 kg/m2 DO Aurea Roger Work Phone: [facility] 04-09-2024 14:28-0400 Body temperature 98.2 [degF] DO Aurea Roger Work Phone: [facility] 04-09-2024 14:28-0400 Body weight 63.5 kg DO Aurea Roger Work Phone: [facility] 04-09-2024 14:28-0400 Diastolic blood pressure 83 mm[Hg] DO Aurea Roger Work Phone: [facility] 04-09-2024 14:28-0400 Heart rate 84 /min DO Aurea Roger Work Phone: [facility] 04-09-2024 14:28-0400 Respiratory rate 18 /min DO Aurea Roger Work Phone: [facility] 04-09-2024 14:28-0400 SaO2% (BldA) [Mass fraction] 98 % DO Aurea Roger Work Phone: [facility] 04-09-2024 14:28-0400 Systolic blood pressure 123 mm[Hg] DO Aurea Roger Work Phone: [facility] 2023 16:10-0400 Body height 157.48 cm Kajal Sharon Other [facility] Other 2023 16:10-0400 Body mass index (BMI) [Ratio] 25.09 kg/m2 Kajal Sharon Other [facility] Other 2023 16:10-0400 Body temperature 99 [degF] Kajal Sharon Other [facility] Other 2023 16:10-0400 Body weight 62.23 kg Kajal Herrera Other [facility] Other 2023 16:10-0400 Diastolic blood pressure 79 mm[Hg] Kajal Herrera Other [facility] Other 2023 16:10-0400 Respiratory rate 18 /min Kajal Herrera Other [facility] Other 2023 16:10-0400 SaO2% (BldA) [Mass fraction] 98 % Kajal Herrera Other [facility] Other 2023 16:10-0400 Systolic blood pressure 115 mm[Hg] Kajal Herrera Other [facility] Other Encounters Encounter Date Encounter Type Care Provider Facility Start: 11-12-2024 End: 11-12-2024 Office outpatient visit 15 minutes Aurea Roger DO Work Phone: [facility] Comment on above: Pre-op evaluation; Menorrhagia with regular cycle; Pelvic pain in female; Dyspareunia, female; Dysmenorrhea Start: 11-12-2024 End: 11-12-2024 Preprocedural examination done Aurea Roger DO Work Phone: [facility] Start: 11-12-2024 End: 11-12-2024 ambulatory AUREA ROGER Not Available Start: 11-12-2024 End: 11-12-2024 Bamboo flowsheet Aurea Roger DO Work Phone: [facility] Start: 11-12-2024 End: 11-12-2024 Bamboo flowsheet Aurea Roger DO Work Phone: [facility] Start: 10-02-2024 End: 10-02-2024 Clinisync Result Encounter Generic External Data Provider [facility] Unsolicited Start: 10-02-2024 End: 10-02-2024 Clinisync Result Encounter Generic External Data Provider [facility] Unsolicited Start: 09-25-2024 End: 09-25-2024 Office outpatient visit [...] 06-19-2024 Emergency department patient visit VANCE BOURGEOIS [facility] Start: 06-14-2024 End: 06-14-2024 Office outpatient [...] 06-06-2024 Emergency department patient visit VANCE BOURGEOIS [facility] Start: 04-09-2024 End: 04-09-2024 ambulatory DO Aurea Roger Work Phone: [facility] Work Phone: Start: 04-09-2024 End: 04-09-2024 Patient encounter procedure DO Aurea Roger Work Phone: [facility] Work Phone: Start: 03-21-2024 End: 03-21-2024 ambulatory AUREA ROGER Not Available Start: 02-28-2024 End: 02-28-2024 ambulatory VANCE BOURGEOIS Not Available Start: 02-17-2024 End: 02-17-2024 ambulatory Aurea Roger [facility] Work Phone: Start: 02-17-2024 End: 02-17-2024 Departed Referred Aurea Roger Work Phone: [facility] Start: 01-23-2024 End: 01-23-2024 Departed Referred Aurea Roger Work Phone: [facility] Start: 01-23-2024 End: 01-23-2024 ambulatory Aurea Roger Facility:[facility] Start: 12-27-2023 End: 12-27-2023 ambulatory AUREA ROGER Not Available Start: 12-22-2023 End: 12-22-2023 ambulatory MIR MIRELES Not Available Start: 12-07-2023 End: 12-07-2023 [address] [facility] Start: 11-28-2023 End: 11-28-2023 ambulatory [address] [facility] Start: 11-28-2023 Encounter for genera l adult medical examination without abnormal findings VANCE BOURGEOIS [facility] Start: 11-22-2023 End: 11-22-2023 ambulatory VANCE BOURGEOIS Not Available Start: 11-22-2023 Patient encounter procedure Vance Bourgeois MD Work Phone: [facility] Start: 11-18-2023 End: 11-18-2023 ambulatory AUREA ROGER Not Available Start: 2023 End: 2023 ambulatory Kajal Herrera Other [facility] Other Start: 2023 Office outpatient ne w 20 minutes Kajal Herrera [facility] Procedures Date Procedure Procedure Detail Performing Clinician Start: 10-02-2024 ALL CBC WITH AUTO DIFF Aurea Roger DO Work Phone: Start: 12-08-2023 Mammography Vance ramirez MD Work Phone: Start: 11-14-2023 Microscopic observat ion [Identifier] in Cervix by Cyto stain Vance Bourgeois MD Work Phone: Plan of Treatment Date Care Activity Detail Author Start: 11-13-2028 Screening for malign ant neoplasm of cervix [facility] Start: 12-15-2026 Screening for malign ant neoplasm of colon [facility] Start: 02-28-2025 End: 02-28-2025 Patient encounter procedure 02/28/2025 2:30 PM EDT Office Visit [facility] [address] [place] [address] Vance Bourgeois MD [address] [place] [address] [facility] Start: 12-07-2024 Screening for malign ant neoplasm of breast [facility]ammogram [facility] Start: 11-12-2024 End: 11-12-2024 Patient encounter procedure [facility] Comment on above: Arrived Start: 11-01-2024 End: 11-01-2024 Professional / ancillary services management 11/01/2024 2:30 PM EST Ancillary Procedure [facility] [address] [place] [address] [facility] Start: 10-16-2024 End: 10-16-2024 Professional / ancillary services management 10/16/2024 2:30 PM EST Ancillary Procedure [facility] [address] [place] [address] [facility] Start: 09-25-2024 End: 09-25-2024 [...] [facility] [address] [place] [id number] Vance Bourgeois MD [address] [place] [id number] Arrived [facility] Comment on above: Arrived Start: 05-13-2024 Influenza vaccination Influenza Vacc ine (#1) [facility] Start: 1980 Screening for malign ant neoplasm of colon [facility] CBC W Auto Different ial panel - Blood CBC and differential Lab Routine Menorrhagia with regular cycle Ordered: 09/25/2024 [facility] Work Phone: Comment on above: Ordered: 09/25/2024 hCG, quantitative, hCG, quantitative, Lab Routine Menorrhagia with regular cycle Ordered: 09/25/2024 [facility] Comment on above: Ordered: 09/25/2024 Hemoglobin A1c/Hemoglobin.total in Blood Hemoglobin A1c Lab Routine Menorrhagia with regular cycle Ordered: 09/25/2024 [facility] Comment on above: Ordered: 09/25/2024 Prothrombin time (PT ) in Blood by Coagulation assay Protime-INR Lab Routine Menorrhagia with regular cycle Ordered: 09/25/2024 [facility] Comment on above: Ordered: 09/25/2024 Thyrotropin [Units/volume] in Serum or Plasma TSH Lab Routine Menorrhagia with regular cycle Ordered: 09/25/2024 [facility] Comment on above: Ordered: 09/25/2024 Thyroxine (T4) free [Mass/volume] in Serum or Plasma T4, free Lab Routine Menorrhagia with regular cycle Ordered: 09/25/2024 [facility] Comment on above: Ordered: 09/25/2024 Payers Date Payer Category Payer Self-pay 2022 [facility] BCBS [id number] 2022 Unknown BCBS BCBS xxxxxx [id number] 2022-Present [phone] [address] [place] [address] [id number] 2022 [employer] [id number] 1978 Unknown [id number] 2.16.840.1.025805.3.579. 2.1286 1978 Unknown [id number] 2.16.840.1.345761.3.579. 2.1286 1978 Unknown [id number] 2.16.840.1.686633.3.579. 2.128 1978 Unknown [id number] 2.16.840.1.241528.3.579. 2.6 1978 Unknown [id number] 2.16.840.1.844572.3.579. 2.1258 1978 Unknown [id number] 2.16.840.1.695587.3.579. 2.9 1978 Unknown [id number] 2.16.840.1.245558.3.579. 2.1258 1978 Unknown [id number] 2.16.840.1.889617.3.579. 2.9 1978 Unknown [id number] 2.16.840.1.287164.3.579. 2.9 1978 Unknown [id number] 2.16.840.1.127687.3.579. 2.9 1978 Unknown [id number] 2.16.840.1.294474.3.579. 2.9 1978 Unknown [id number] 2.16.840.1.295746.3.579. 2.9 1978 Unknown [id number] 2.16.840.1.640506.3.579. 2.9 1978 Unknown [id number] 2.16.840.1.882413.3.579. 2.9 1978 Unknown [id number] 2.16.840.1.063644.3.579. 2.1259 Social History Date Type Detail Facility Unknown if ever smoked [facility] Other Start: 11-15-2023 End: 08-30-2024 Sex Assigned At [facility] Start: 1980 Sex Assigned At Female [facility] Start: 11-22-2023 Tobacco smoking status NHIS Never smoked tobacco [facility] Start: 11-22-2023 Tobacco use and exposure Smokeless tobacco non-user [facility] Start: 03-21-2024 End: 11-12-2024 Alcoholic beverage intake Ex-drinker (finding) [facility] Start: 11-15-2023 End: 08-30-2024 History of Social function [facility] Do you belong to any clubs or organizations such as pentecostal groups, unions, fraternal or athletic groups, or [...] [OSQ] Very much [facility] (I/We) worried jimbo er (my/our) food would run out before (I/we) got money to buy more. Sometimes true [facility] Start: 1980 Sex assigned at Not on file [facility] History of Present illness Narrative 11-12-2024 Emma Villegas - 11/12/2024 2:50 PM EST Note Date & Type Note Facility 11-12-2024 History of Presen t illness Narrative Reason for Appointment: Patient ID: Mai Taylor is a 44 y.o. female who presents for Pre-op Visit (Pt present today for a pre operative visit for a hysterectomy.) Patient presents today for Pre Op appointment. Patient is scheduled to undergo Total Abdominal Hysterectomy, possible BSO, possible cystoscopy on 12/05/[address] Duran at [facility]. MEDICATIONS Current Outpatient Medications Medication Instructions albuterol HFA 90 mcg/act inhaler amitriptyline (ELAVIL) 25 mg, Oral, Nightly sjorddvcdw-yakoogqrplzsp-azvilfmk 50-325-40 MG tablet 1 tablet, Oral, 4 times daily PRN hydrOXYzine HCl (Atarax) 25 MG tablet TAKE 1 TABLET BY MOUTH 4 TIMES DAILY NEEDED FOR ITCHING ibuprofen 800 mg, Oral, 3 times daily PRN megestrol (Megace) 20 MG tablet TAKE 1 TABLET BY MOUTH TWICE DAILY FOR 3 DAYS THEN 1 ONCE DAILY FOR ONE MONTH rizatriptan (MAXALT) 10 mg, Oral, Once as needed, May repeat in 2 hours if unresolved. Do not exceed 30 mg in 24 hours. ALLERGIES Allergies Allergen Reactions Cefaclor Hives PROBLEMS Active Ambulatory Problems Diagnosis Date Noted Generalized anxiety disorder (CMS/HCC) 11/22/2023 Migraine without aura and without status migrainosus, not intractable (CMS/HCC) 11/22/2023 Allergic rhinitis due to pollen 11/22/2023 [...] SECTION, LOW TRANSVERSE 1996 SECTION, LOW TRANSVERSE 2000 ENDOMETRIAL ABLATION 02/17/2024 TUBAL LIGATION Bilateral 02/17/2024 REVIEW OF SYSTEMS Review of Systems: Review of Systems Constitutional: Negative. HENT: Negative. Eyes: Negative. Respiratory: Negative. Cardiovascular: Negative. Gastrointestinal: Negative. Genitourinary: Negative. Musculoskeletal: Negative. Skin: Negative. Neurological: Negative. All other systems reviewed and are negative. Hematological: Negative. Endocrine: Negative. Allergic/Immunologic: Negative. OBJECTIVE Objective: Physical Exam Constitutional: Appearance: Normal appearance. She is well-developed. Cardiovascular: Rate and Rhythm: Normal rate and regular rhythm. Pulmonary: Effort: Pulmonary effort is normal. Breath sounds: Normal breath sounds. Abdominal: General: Bowel sounds are normal. There is no distension. Palpations: Abdomen is soft. Tenderness: There is no abdominal tenderness. There is no guarding or rebound. Musculoskeletal: General: No swelling. Normal range of motion. Right lower leg: No edema. Left lower leg: No edema. Neurological: Mental Status: She is alert and oriented to person, place, and time. Skin: General: Skin is warm and dry. Psychiatric: Mood and Affect: Mood normal. Behavior: Behavior normal. Vitals and nursing note reviewed. Exam conducted with a refrigeration technician present. Vitals: Estimated body mass index is 26.16 kg/m as calculated from the following: Height as of 08/30/24: 5' 2 . Weight as of this encounter: 143 lb. BP: 118/72 Patient's last menstrual period was 11/05/2024 (approximate). ASSESSMENT & PLAN ICD-10-CM 1. Pre-op evaluation Z01.818 2. Menorrhagia with regular cycle N92.0 3. Pelvic pain in female R10.2 4. Dyspareunia, female N94.10 5. Dysmenorrhea N94.6 Pre Op: Patient is doing well but has complaints of pelvic pain, dysmenorrhea, dyspareunia, and menorrhagia. I have discussed conservative management vs. surgical management with the patient in detail and patient desires surgical management at this time. Patient will undergo Total Abdominal Hysterectomy, possible BSO, possible cystoscopy on 11/14/2024. Surgical consents were signed, mmc was reviewed, and patient is to proceed to [facility] OR. Follow Up: Patient is to follow up at 1 & 6 weeks post operative to assess proper healing and recovery from procedure. Documented by Radha Izquierdo LPN on behalf of: Aurea Duran DO documented in this encounter [facility] History [...] Instructions amitriptyline (ELAVIL) 25 mg, Oral, Nightly mjyqinldfz-outudqvjxxfwc-ppnrmhqw 50-325-40 MG tablet 1 tablet, Oral, 4 [...] Problems Diagnosis Date Noted Generalized anxiety disorder ([facility]) 11/22/2023 Migraine without aura and without status migrainosus, not intractable ([facility]) 11/22/2023 Allergic rhinitis due to pollen 11/22/2023 Annual physical exam 11/22/2023 MDD (major depressive disorder), recurrent episode, moderate (CMS/[facility]) 11/22/2023 Dysmenorrhea 08/30/2024 Resolved Ambulatory Problems Diagnosis Date Noted Acute bronchitis due to other specified organisms 06/14/2024 Past Medical History: Diagnosis Date KVNG (generalized anxiety disorder) ([facility]) Migraine with aura and without status migrainosus, not intractable ([facility]) Seasonal allergic rhinitis due to pollen HISTORY PAST MEDICAL HISTORY SOCIAL HISTORY Past Medical History: Diagnosis Date KVNG (generalized anxiety disorder) ([facility]) Migraine with aura and without status migrainosus, [...] weeks without bleeding. We will send in keri to start taking 2 pills bid for 3 days then daily for one month with a refill Documented by TOMASZ Meeks on behalf of: Aurea Duran DO documented in this encounter [facility] History [...] symptoms and start motrin PRN. Follow with thermo processor. Subjective Patient ID: Mai Taylor is a [...] C/o severe cramping and irregular periods. Seen thermo processor and had ablation. Scheduled next month. Requests [...] Relevant Medications rizatriptan (Maxalt) 10 MG tablet jfakflxjae-nxyjalwssojoy-rstvqjai 50-325-40 MG tablet MDD (major depressive disorder), recurrent episode, moderate (CMS/HCC) Occasional symptoms but tolerable without medication and monitor. Dysmenorrhea Frequent symptoms and start motrin PRN. Follow with thermo processor. Relevant Medications ibuprofen 800 MG tablet documented [...] 10 MG tablet documented in this encounter [facility] Evaluation note 2023 Note Date & [...] no improvement in 2 to 3 days Oxatis Other Evaluation note Note Date & Type Note Facility Evaluation note No assessment information [facility] Work Phone: Evaluation note Note Date & [...] anxiety disorder Dysmenorrhea documented in this encounter [facility] Evaluation [...] with regular cycle documented in this encounter [facility] Evaluation [...] anxiety disorder (CMS/HCC) Generalized anxiety disorder Dysmenorrhea Pre-op evaluation Menorrhagia with regular cycle Pelvic pain in female Unspecified symptom associated with female genital organs Dyspareunia, female Dysmenorrhea documented in this encounter [facility] Advance Directives No Advanced Directives Records Found Advance Directive Response Recorded Date/ Time Advance Directives No October 3:27pm Summary Purpose Family History No Family History Records FoundNo Family History Records FoundNo Family History Records Found Additional Source Comments REASON FOR VISIT (unrecogniz ed section and content) Reason Comments Follow-up Er f/up [facility] Reason Comments Follow-up 6m Reason Comments Post-op Visit Reason Comments Pre-op Visit Pt present today for a pre operative visit for a hysterectomy. Care Teams (unrecognized sec tion and content) Team Status: Inactive Member Role Status Dates Aurea Duran Attending Provider Active Start: Arun samano 2023 End: January 23, 2024 Team Status: Inactive Member Role Status Dates Aurea Duran Attending Provider Active Start: Ligia 2023 End: February 17, 2024 Team Status: Active Member Role Status Dates [facility] Primary Care Provider Active Team Status: Inactive [...] 09, 2024 End: April 09, 2024 Outreach [facility] Primary Care Provider Active Start: April 09, 2024 End: April 09, 2024 Scientific Writer Relationship Specialty Start Date End Date Vance Bourgeois MD [address] [place] [id number] PCP - [employer] 06/12/23 Vance Bourgeois MD [address] [place] [phone] PCP - General Family Medicine 10/17/23 Scientific Writer Relationship Specialty Start Date End Date Vance Bourgeois MD [address] [place] [id number] PCP - [employer] 06/12/23 Vance Bourgeois MD [address] [place] [phone] PCP - General [facility] Medicine 10/17/23 Scientific Writer Relationship Specialty Start Date End Date Vance Bourgeois MD [address] [place] [phone] PCP - [employer] 06/12/23 Vance Bourgeois MD [address] [place] [phone] PCP - General Family Medicine 10/17/23 Scientific Writer Relationship Specialty Start Date End Date Vance Bourgeois MD [address] [place] [phone] PCP - [employer] 06/12/23 Vance Bourgeois MD [address] [place] [phone] PCP - General Family Medicine 10/17/23 Scientific Writer Relationship Specialty Start Date End Date Vance Bourgeois MD [address] [place] [address] PCP - [employer] 06/12/23 Vance Bourgeois MD [address] [place] [phone] PCP - General Family Medicine 10/17/23 Scientific Writer Relationship Specialty Start Date End Date Vance Bourgeois MD [address] [place] [phone] PCP - [employer] 06/12/23 Vance Bourgeois MD [address] [place] [phone] PCP - General Family Medicine 10/17/23 Scientific Writer Relationship Specialty Start Date End Date Vance Bourgeois MD [address] [place] [phone] PCP - [employer] 06/12/23 Vance Bourgeois MD [address] [place] [address] PCP - General Family Medicine 10/17/23 Scientific Writer Relationship Specialty Start Date End Date Vance Bourgeois MD [address] [place] [address] PCP - [employer] 06/12/23 Vance Bourgeois MD [address] [place] [id number] PCP - General Family Medicine 10/17/23 Scientific Writer Relationship Specialty Start Date End Date Vance Bourgeois MD [address] [place] [phone] PCP - [facility] 06/12/23 Vance Bourgeois MD [address] [place] [address] PCP - General Family Medicine 10/17/23 Goals (unrecognized section and content) Goals may be documented in a n alternate section INFORMATION SOURCE (unrecogn ized section and content) DATE CREATED AUTHOR 02/18/2024 [facility] DATE CREATED AUTHOR AUTHOR'S ORGANIZ ATION 06/21/2024 [facility] DATE CREATED AUTHOR AUTHOR'S ORGANIZ ATION 11/13/2024 [facility] EPIC FOR RECORDS PERTAINING TO PATIENTS WHO ARE [...] BE BASED ON THE PRIMARY CLINICAL RECORDS. [employer] provides no warranty or guarantee of the accuracy or completeness of information in this document.
[2024-11-22 14:16] LABS: Basophils Absolute Auto 0.1 10^3/uL (0.0-0.1); Eosinophils Absolute Auto 0.3 10^3/uL (0.0-0.7); Eosinophils Percent Auto 4.1 % (0.9-7.0); Hematocrit 40.3 % (36.0-48.0); Hemoglobin 13.6 g/dL (12.0-16.0); Immature Granulocytes Abs Auto 0.03 10^3/uL (0.00-0.03); Immature Granulocytes Pct Auto 0.4 % (0.0-0.5); Lymphocytes Absolute Auto 2.3 10^3/uL (1.2-3.8); Lymphocytes Percent Auto 34.5 % (20.5-60.0); Mean Corpuscular HGB Conc 33.7 g/dL (29.9-35.2); Mean Corpuscular Hemoglobin 29.2 pg (26.7-34.0); Mean Corpuscular Volume 86.5 fL (81.0-99.0); Mean Platelet Volume 8.6 fL (9.5-13.5); Monocytes Absolute Auto 0.5 10^3/uL (0.3-0.8); Monocytes Percent Auto 7.2 % (1.7-12.0); Neutrophils Absolute Auto 3.6 10^3/uL (1.4-6.5); Neutrophils Percent Auto 52.8 % (43.0-75.0); Platelet Count 367 10^3/uL (150-450); Red Blood Count 4.66 10^6/uL (4.20-5.40); Red Cell Distribution Width 12.8 % (11.0-15.0); White Blood Count 6.8 10^3/uL (4.0-11.0)
[2024-11-22 14:46] LABS: INR 0.97; Partial Thromboplastin Time 28.8 sec (22.3-36.2); Prothrombin Time 10.3 sec (9.0-11.6)
[2024-11-22 14:56] LABS: Alanine Aminotransferase 22 U/L (14-59); Albumin Level 3.6 g/dL (3.4-5.0); Alkaline Phosphatase 70 U/L (46-116); Anion Gap 12.2; Aspartate Amino Transferase 19 U/L (15-37); BUN Creatinine Ratio 7.9; Bilirubin Direct 0.1 mg/dL (0.0-0.2); Bilirubin Total 0.1 mg/dL (0.2-1.0); Calcium 9.1 mg/dL (8.5-10.1); Carbon Dioxide 27.2 mmol/L (21.0-32.0); Chloride 105 mmol/L (98-107); Estimated GFR (African America >60 (>=60 mL/min/1.73m^2); Estimated GFR (Non-African Ame >60 (>=60 mL/min/1.73m^2); Globulin 3.6 g/dL; Glucose 82 mg/dL (74-106); Potassium 3.4 mmol/L (3.5-5.1); Sodium 141 mmol/L (136-145); Total Protein 7.2 g/dL (6.4-8.2)
== END 2024-11-22 13:22 | disposition home or self-care (01) ==
PROVIDERS: PCP Family Medicine; Visit Provider Obstetrics & Gynecology
DX: Z01.810 Encounter for preprocedural cardiovascular examination (principal); Z01.812 Encounter for preprocedural laboratory examination; N92.0 Excessive and frequent menstruation with regular cycle; R10.2 Pelvic and perineal pain; N94.6 Dysmenorrhea, unspecified; N94.10 Unspecified dyspareunia
CPT/HCPCS: 80048; 80076; 85025; 85610; 85730; 86850; 86900; 86901; 93005

== ENCOUNTER 2024-12-05 11:26 | Inpatient (IN) | payer BC, SELFPAY ==
[2024-11-22 14:00] VITALS: BP 148/90; PULSE 94; TEMP 36.5; O2SAT 99; BMI 26.4
[2024-12-05] VITALS (23 sets, daily range): BP systolic 76–136; BP diastolic 44–81; PULSE 72–112; TEMP 36.4–37.2; O2SAT 90–100; BMI 25.6; BMI 27.0
--- OUTSIDE RECORDS SUMMARY | 2024-12-05 06:15 | XMS_ITS | CCD ---
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 Operator Name Role Phone Kajal Herrera Unavailable Aurea Duran Attending Provider Roger, Aurea Admitting Unavailable Roger, Aurea Attending Unavailable Roger, Aurea Admitting Unavailable Roger, Aurea Attending Unavailable DO Aurea Duran Attending Provider VANCE BOURGEOIS Referring Unavailable VANCE BOURGEOIS Primary Care Unavailable VANCE BOURGEOIS Referring Unavailable VANCE BOURGEOIS Primary Care Unavailable VANCE BOURGEOIS Primary Care Unavailable FREDERIC ENGLISH Attending Unavailable VANCE BOURGEOIS Primary Care Unavailable SANJUANA WHITAKER Attending Unavailable Vance Bourgeois MD Unavailable Vance Bourgeois MD Primary Care Provider [phone] AUREA DURAN Attending Unavailable MIR MIRELES Attending Unavailable ROGER, AUREA Attending Unavailable MIR MIRELES Referring Unavailable ROGER, AUREA Attending Unavailable VANCE BOURGEOIS Attending Unavailable ROGER, AUREA Attending Unavailable VANCE BOURGEOIS Attending Unavailable VANCE BOURGEOIS Attending Unavailable ROGER, AUREA Attending Unavailable Allergies Allergy Classification Reported Allergen(s) Allergy Type Date of Onset Reaction(s) Facility Cephalosporins (antibiotic) (1 source) Cefaclor Drug Allergy 11-08-2023 [facility] Repository (14 sources) Cefaclor; Translations: [CEFACLOR] Drug Allergy 04-09-2024 [facility] Repository Medications Current Medications Medication Drug Class(es) Dates Sig (Normalized) Sig (Original) acetaminophen 325 mg / butalbital 50 mg / caffeine 40 mg oral tablet (18 sources) Barbiturate, Central Nervous System Stimulant, Methylxanthine [...] 1 capsule by mouth every eight hours Ynzxoqcrmn-Lwhgthzzohlmw-Mbfo (Fioricet) 50-300-40 mg capsule Discontinued 1 CAP PO Every 8 hours November 08, 2023 1:00am April 09, 2024 2:27pm [id number] 200 actuat albuterol 0.09 mg/actuat metered dose inhaler (3 sources) beta2-Adrenergic Agonist Start: 06-07-2024 albuterol HFA 90 mcg/act inhaler 06/07/2024 Active amitriptyline hydrochloride 25 mg oral tablet (16 sources) Tricyclic Antidepressant Start: 02-28-2024 take 1 [...] 12:00am hydrOXYzine hydrochloride 25 mg oral tablet (15 sources) Antihistamine Start: 04-09-2024 End: 04-09-2025 take [...] 2024 12:00am ibuprofen 800 mg oral tablet (10 sources) Nonsteroidal Anti-inflammatory Drug Start: 08-30-2024 take [...] Active megestrol acetate 20 mg oral tablet (9 sources) Progestin Start: 11-12-2024 End: 12-12-2024 take 1 tablet by mouth once daily megestrol (Megace) 20 MG tablet Indications: Menorrhagia with regular cycle , Dyspareunia, female , Dysmenorrhea Take 1 tablet (20 mg total) by mouth Daily. 30 tablet 11/12/2024 12/12/2024 Active Start: 11-07-2024 take 1 tablet by kathleen twice daily, then take 1 tablet by [...] 10/28/2024 Active rizatriptan 10 mg oral tablet (18 sources) Serotonin-1b and Serotonin-1d Receptor Agonist Start: [...] oral tablet (2 sources) alpha-Adrenergic Agonist, Uncompetitive F-favrxu-F-aspartat e Receptor Antagonist, Sigma-1 Agonist Start: 11-08-2023 [...] and perineal pain] 11-12-2024 Episodic Anxiety disorders (16 sources) Generalized anxiety disorder; Translations: [Generalized anxiety disorder] Onset: 11-22-2023 11-22-2023 Chronic Chronic obstructive pulmonary disease and bronchiectasis (1 source) Bronchitis, not specified as acute or chronic; Translations: [Bronchitis, not specified as acute or chronic] Onset: 06-06-2024 Episodic Fluid and electrolyte disorders (1 source) Hypokalemia; Translations: [Hypokalemia] Onset: 06-06-2024 Episodic Headache; including migraine (16 sources) Migraine without aura, not refractory ; Translations: [Migraine without aura, not intractable, without status migrainosus] Onset: 11-22-2023 02-28-2024 Chronic Menstrual disorders (16 sources) Dysmenorrhea; Translations: [Dysmenorrhea, unspecified] Onset: 08-30-2024 08-30-2024 Chronic Mood disorders (16 sources) Moderate recurrent major depression; Translations: [Major [...] Onset: 06-19-2024 Episodic Other upper respiratory disease (14 sources) Allergic rhinitis due to pollen; Translations: [...] Date Documented Da te Episodic/Chronic Acute bronchitis (15 sources) Acute infective bronchitis; Translations: [Acute bronchitis [...] WITH AUTO DIFFon BASOPHILS ABSOLUTE AUTO 0.1 [facility] Basophils/100 WBC (Bld) 1 % 0.2 - 2.0 % [facility] Eosinophils/100 WBC (Bld) 4.1 % 0.9 - 7.0 % [facility] Erythrocyte distribution width (RBC) [Ratio] 12.8 % 11.0 - 15.0 % [facility] Hematocrit (Bld) [Volume fraction] 40.3 % 36.0 - 48.0 % [facility] Hemoglobin (Bld) [Mass/Vol] 13.6 g/dL 12.0 - 16.0 g/dL [facility] IMMATURE GRANULOCYTES ABS AUTO 0.03 [facility] Immature granulocytes/100 WBC (Bld) 0.4 % 0.0 - 0.5 % [facility] Interpretation and review of laboratory results Abnormal [facility] LYMPHOCYTES ABSOLUTE AUTO 2.3 [facility] Lymphocytes/100 WBC (Bld) 34.5 % 20.5 - 60.0 % [facility] MCH (RBC) [Entitic mass] 29.2 pg 26.7 - 34.0 pg [facility] MCHC (RBC) [Mass/Vol] 33.7 g/dL 29.9 - 35.2 g/dL [facility] MCV (RBC) [Entitic vol] 86.5 fL 81.0 - 99.0 fL [facility] MONOCYTES ABSOLUTE AUTO 0.5 [facility] Monocytes/100 WBC (Bld) 7.2 % 1.7 - 12.0 % [facility] NEUTROPHILS ABSOLUTE AUTO 3.6 [facility] Neutrophils/100 WBC (Bld) 52.8 % 43.0 - 75.0 % [facility] Platelet mean volume (Bld) [Entitic vol] 8.6 fL Low 9.5 - 13.5 fL [facility] TB[facility] EO # 0.3 [facility] PLT 367 [facility] RBC 4.66 [facility] WBC 6.8 [facility] ECG 12-LEADon 11-22-2024 [place] [address] Electrocardiograph Report Signed Patient: MAI PALOMARES MR#: [id number] : 1980 Acct:[id number] Age/Sex: 44 / F ADM Date: 11/22/24 Loc: [facility] Attending Dr: Aurea Duran D.O. Ordering Physician: Aurea Duran D.O. Date of Service: 11/22/24 Procedure(s): ECG 12 lead Accession Number(s): [id number] cc: [facility] Test Date: 2024-11-22 Pat Name: MAI PALOMARES Department: Room: - Gender: Female Signal Worker: : 1980 Requested By: AUREA DURAN Order Number: [id number] Reading MD: REGULO ROMAN M.D. Measurements Intervals [place] Rate: 76 P: 50 DC: 155 QRS: -4 QRSD: 86 T: 22 QT: 365 QTc: 413 Interpretive Statements SINUS RHYTHM WITH SINUS ARRHYTHMIA NORMAL ECG Compared to ECG 02/10/2024 15:11:27 No significant changes Electronically Signed On 11-22-2024 20:27:41 EDT by REGULO ROMAN M.D. Dictated By: REGULO ROMAN Signed By: 11/22/242027 DD/ 1356 TD/TT: Security Technician: [facility] Radiology, Radiologist, - 11/22/2024 [place] [address] Electrocardiograph Report Signed Patient: MAI PALOMARES MR#: [id number] : 1980 Acct:[id number] Age/Sex: 44 / F ADM Date: 11/22/24 Loc: [facility] Attending Dr: Aurea Duran D.O. Ordering Physician: Aurea Duran D.O. Date of Service: 11/22/24 Procedure(s): ECG 12 lead Accession Number(s): [id number] cc: [facility] Test Date: 2024-11-22 Pat Name: MAI PALOMARES Department: Room: - Gender: Female Signal Worker: : 1980 Requested By: AUREA DURAN Order Number: [id number] Reading MD: REGULO ROMAN M.D. Measurements Intervals [place] Rate: 76 P: 50 DC: 155 QRS: -4 QRSD: 86 T: 22 QT: 365 QTc: 413 Interpretive Statements SINUS RHYTHM WITH SINUS ARRHYTHMIA NORMAL ECG Compared to ECG 02/10/2024 15:11:27 No significant changes Electronically Signed On 11-22-2024 20:27:41 EDT by REGULO ROMAN M.D. Dictated By: RGEULO ROMAN Signed By: 11/22/242027 DD/ 1356 TD/TT: Security Technician: [facility] Radiology Study observation (narrative) [facility] ECG 12-LEADOrdered By: Radio logist Radiology on 11-22-2024 [facility] [employer] Work Phone: ALL CBC WITH AUTO DIFFon BASOPHILS ABSOLUTE AUTO 0.1 [facility] Basophils/100 WBC (Bld) 0.8 % 0.2 - 2.0 % [facility] Eosinophils/100 WBC (Bld) 6.2 % 0.9 - 7.0 % [facility] Erythrocyte distribution width (RBC) [Ratio] 12.3 % 11.0 - 15.0 % [facility] Hematocrit (Bld) [Volume fraction] 41 % 36.0 - 48.0 % [facility] [employer] Hemoglobin (Bld) [Mass/Vol] 14 g/dL 12.0 - 16.0 g/dL [facility] IMMATURE GRANULOCYTES ABS AUTO 0.02 [facility] Immature granulocytes/100 WBC (Bld) 0.3 % 0.0 - 0.5 % [facility] Interpretation and review of laboratory results Abnormal [facility] LYMPHOCYTES ABSOLUTE AUTO 1.9 [facility] Lymphocytes/100 WBC (Bld) 29.9 % 20.5 - 60.0 % [facility] MCH (RBC) [Entitic mass] 29.7 pg 26.7 - 34.0 pg [facility] MCHC (RBC) [Mass/Vol] 34.1 g/dL 29.9 - 35.2 g/dL [facility] MCV (RBC) [Entitic vol] 86.9 fL 81.0 - 99.0 fL [facility] MONOCYTES ABSOLUTE AUTO 0.7 [facility] Monocytes/100 WBC (Bld) 11.4 % 1.7 - 12.0 % [facility] NEUTROPHILS ABSOLUTE AUTO 3.3 [facility] Neutrophils/100 WBC (Bld) 51.4 % 43.0 - 75.0 % [facility] Platelet mean volume (Bld) [Entitic vol] 8.6 fL Low 9.5 - 13.5 fL [facility] TBH EO # 0.4 [facility] TBH PLT 324 [facility] RBC 4.72 [facility] WBC 6.5 [facility] XR RIBS RT 3 VWS [...] Oh MD on 06/19/2024 3:37 PM Normal [facility] CBC AND AUTO DIFFon 06-06-20 ABSOLUTE BASOPHIL 0.0 X10E9/L Normal 0.0-0.2 [facility] Comment on above: Performed By: #### C VIRY, CMP, , 34454-2 #### [facility] ([id number]) [address] [place] [address]147 ABSOLUTE NEUTROPHIL 8.7 X10E9/L High 1.5-6.6 [facility] Comment on above: Performed By: #### C VIRY, CMP, , 85734-1 #### [facility] ([id number]) [address] [place] [address] 31848 Basophils/100 WBC (Bld) 0.3 % Normal [facility] Comment on above: Performed By: #### Victorino BAIRES, CMP, , 06732-6 #### [facility] ([id number]) [address] [place] [address] 71471 Eosinophils (Bld) [#/Vol] 0.4 10*3/uL Normal 0.0-0.4 [facility] Comment on above: Performed By: #### C VIRY, CMP, , 94247-9 #### [facility] ([id number]) [address] [place] [address] 28488 Eosinophils/100 WBC (Bld) 3.5 % Normal [facility] Comment on above: Performed By: #### C BCA, CMP, , 76675-2 #### [facility] ([id number]) [address] [place] [address] 56440 Erythrocyte distribution width (RBC) [Ratio] 12.8 % Normal 11.5-15.0 [facility] Comment on above: Performed By: #### C BCA, CMP, , 26655-9 #### [facility] ([id number]) [address] [place] [address] 43881 Hematocrit (Bld) [Volume fraction] 39.1 % Normal 35-47 [facility] Comment on above: Performed By: #### C VIRY, [facility], , 41562-2 #### [facility] ([id number]) [address] [place] [address] 86155 Hemoglobin (Bld) [Mass/Vol] 13.3 g/dL Normal 11.7-15.5 [facility] Comment on above: Performed By: #### C VIRY, [facility], , 24890-2 #### [facility] ([id number]) [address] [place] [address] 88868 Lymphocytes (Bld) [#/Vol] 1.4 10*3/uL Normal 1.0-3.5 [facility] Comment on above: Performed By: #### C VIRY, [facility], , 81701-5 #### [facility] ([id number]) [address] [place] [address] 79410 Lymphocytes/100 WBC (Bld) 12.3 % Normal [facility] Comment on above: Performed By: #### C VIRY, [facility], , 19634-8 #### [facility] ([id number]) [address] [place] [address] 42378 MCH (RBC) [Entitic mass] 29.3 pg Normal 27-34 [facility] Comment on above: Performed By: #### C VIRY, CMP, , 55403-4 #### [facility] ([id number]) [address] [place] [address] 58333 MCHC (RBC) [Mass/Vol] 34.0 g/dL Normal 32-36 [facility] Comment on above: Performed By: #### Victorino BAIRES, CMP, , 26828-8 #### [facility] ([id number]) [address] [place] [address] 05107 MCV (RBC) [Entitic vol] 86 fL Normal 80-100 [facility] Comment on above: Performed By: #### Victorino BAIRES, CMP, , 94758-9 #### [facility] ([id number]) [address] [place] [address] 67087 Monocytes (Bld) [#/Vol] 0.9 10*3/uL Normal 0-0.9 [facility] Comment on above: Performed By: #### Victorino BAIRES, CMP, , 34769-5 #### [facility] ([id number]) [address] [place] [address] 27838 Monocytes/100 WBC (Bld) 8.2 % Normal [facility] Comment on above: Performed By: #### Victorino BAIRES, CMP, , 51027-9 #### [facility] ([id number]) [address] [place] [address] 84242 Neutrophils/100 WBC (Bld) 75.7 % Normal [facility] Comment on above: Performed By: #### Victorino BAIRES, CMP, , 50657-0 #### [facility] ([id number]) [address] [place] [address] 26741 Platelet mean volume (Bld) [Entitic vol] 7.0 fL Normal 7-12 [facility] Comment on above: Performed By: #### Victorino BAIRES, CMP, , 15092-8 #### [facility] ([id number]) [address] [place] [address] 94066 Platelets (Bld) [#/Vol] 310 10*3/uL Normal 150-450 [facility] Comment on above: Performed By: #### C BCA, CMP, 08951-6, 66235-0 #### [facility] ([id number]) [address] [place] [address] 58341 RBC COUNT 4.55 X10E12/L Normal 3.80-5.20 [facility] Comment on above: Performed By: #### C BCA, CMP, , 89608-6 #### [facility] ([id number]) [address] [place] [address] 33907 WBC (Bld) [#/Vol] 11.6 10*3/uL High 4.0-11.0 [facility] Comment on above: Performed By: #### C BCA, CMP, , 95633-9 #### [facility] ([id number]) [address] [place] [address] 31033 COMPREHENSIVE METABOLIC PANE Alvino 06-06-2024 Albumin [Mass/Vol] 4.0 g/dL Normal 3.2-5.3 [facility] Comment on above: Performed By: #### C BCA, BMP, 86550-9, LIVR, 3016-3 #### [facility] ([id number]) [address], [address] [place] [address] ALP [Catalytic activity/Vol] 70 U/L Normal 39-130 [facility] Comment on above: Performed By: #### C BCA, BMP, 87272-9, LIVR, 3016-3 #### [facility] ([id number]) [address], [address] [place] [address] ALT [Catalytic activity/Vol] 31 U/L Normal 0-31 [facility] Comment on above: Performed By: #### C BCA, BMP, 65376-9, LIVR, 3016-3 #### [facility] ([id number]) [address], [address] [place] [address] Anion gap [Moles/Vol] 8 mmol/L Normal 5-15 [facility] Comment on above: Performed By: #### C BCA, BMP, 73037-0, LIVR, 3016-3 #### [facility] ([id number]) [address], [address] [place] [address] AST [Catalytic activity/Vol] 21 U/L Normal 0-41 [facility] Comment on above: Performed By: #### C BCA, BMP, 29254-9, LIVR, 3016-3 #### [facility] ([id number]) [address], [address] [place] [address] Bilirubin [Mass/Vol] 0.3 mg/dL Normal 0.3-1.2 [facility] Comment on above: Performed By: #### C BCA, BMP, 70740-6, LIVR, 3016-3 #### [facility] ([id number]) [address], [address] [place] [address] Calcium [Mass/Vol] 8.7 mg/dL Normal 8.5-10.5 [facility] Comment on above: Performed By: #### C BCA, BMP, 91120-5, LIVR, 3016- #### [facility] ([id number]) [address], [address] [place] [address] Chloride [Moles/Vol] 105 mmol/L Normal 98-109 [facility] Comment on above: Performed By: #### C BCA, BMP, 18141-3, LIVR, 3016-3 #### [facility] ([id number]) [address], [address] [place] [address] CO2 [Moles/Vol] 24 mmol/L Normal 22-32 [facility] Comment on above: Performed By: #### C BCA, BMP, 16338-1, LIVR, 3016-3 #### [facility] ([id number]) [address] [address] [place] [address] Creatinine [Mass/Vol] 0.65 mg/dL Normal 0.40-1.00 [facility] Comment on above: Result Comment: METH OD TRACEABLE TO IDMS STANDARD Performed By: #### C BCA, BMP, 50741-4, LIVR, 3016-3 #### [facility] ([id number]) [address] [address] [place] [address] eGFR (CKD-EPI) NON-RACE DEPENDENT >90 Normal >59 [facility] Comment on above: Result Comment: Reported eGFR is based on the CKD-EPI 2020 equation that does not use a race coefficient. Performed By: #### C BCA, BMP, 13537-2, LIVR, 3016-3 #### [facility] ([id number]) [address] [address] [place] [address] Glucose [Mass/Vol] 98 mg/dL Normal 65-99 [facility] Comment on above: Performed By: #### C BCA, BMP, 43563-4, LIVR, 6-3 #### [facility] ([id number]) [address] [address] [place] [address] Potassium [Moles/Vol] 3.3 mmol/L Low 3.5-5.0 [facility] Comment on above: Performed By: #### C BCA, BMP, 97764-6, LIVR, 3016-3 #### [facility] ([id number]) [address] [address] [place] [address] Protein [Mass/Vol] 7.6 g/dL Normal 6.0-8.0 [facility] Comment on above: Performed By: #### C BCA, BMP, 89689-7, LIVR, 3016-3 #### [facility] ([id number]) [address] [address] [place] [address] Sodium [Moles/Vol] 137 mmol/L Normal 134-146 [facility] Comment on above: Performed By: #### C BCA, BMP, 36127-0, LIVR, 3016-3 #### [facility] ([id number]) [address], [address] [place] [address] Urea nitrogen [Mass/Vol] 8 mg/dL Normal 5-23 [facility] Comment on above: Performed By: #### C BCA, BMP, 13893-0, LIVR, 3016-3 #### [facility] ([id number]) [address] [facility], [address] [place] [address] MAGNESIUMon 06-06-2024 Magnesium [Mass/Vol] 2.0 mg/dL Normal 1.8-2.6 [facility] Comment on above: Performed By: #### C BCA, BMP, 22594-5, LIVR, 3016-3 #### [facility] ([id number]) [address], [address] [place] [address] SARS/FLU A+B/RSV by NAAT/Mol ecularon 06-06-2024 SARS/FLU [...] operators who are performing tests using either [employer] or Shuame systems and is limited to laboratories that [...] repeat. Fact Sheet for Healthcare Providers: https://www.fda.gov/me lilly/628184/download Fact Sheet for Patients: https://www.fda.gov/ar lilly/498041/download Normal [facility] Comment on above: Performed By: #### C OVFLR #### [facility] ([id number]) [address] [place] [address], [place] [address] Troponin I.cardiac High sens itivity method [Mass/Vol]on 06-06-2024 1 HOUR TROP I, HIGH SENSITIVITY <2 Normal <16 [facility] Comment on above: Performed By: #### C LORENE BAIRES, 00456-8, LIVR, 3016-3 #### [facility] ([id number]) [address], [address] [place] [address] TROPONIN I, HIGH SENSITIVITY <2 Normal <16 [facility] Comment on above: Performed By: #### C LORENE BAIRES, 82036-0, LIVR, 3016-3 #### [facility] ([id number]) [address], [address] [place] [address] XR CHEST 1 VWon 06-06-2024 XR CHEST [...] Aftab Salazar on 06/06/2024 3:13 PM Normal [facility] Alvino 01-23-2024 L Specimen: [id number] Received: 01/25/24 Status: JOANIE Garcia Num: [id number] Spec Type: Surgical Subm Dr: Aurea Duran Tissues: A Endometrium - Biopsy (EMB) B Endocervix - Curettings (ECC) Procedures: HE/4, Gross/Micro L4/2 Age/ Patient Sex Location Account Attending Physician BrandonMai 43/F [facility] [id number] Aurea Duran SPEC NUM: [id number] RECD: 01/25/24 STATUS: JOANIE GARCIA NUM: [id number] KULWANT: 01/23/[address]: Aurea Duran ENTERED: 01/25/24 [facility] DR: Jose,Lab SPEC TYPE: Surgical DEPT: LO[facility] [...] regular cycle, pelvic congestion syndrome CPT Codes 48034v5 ---- ---- Specimen: [id number] Received: 01/25/24 Status: JOANIE Garcia Num: [id number] Spec Type: Surgical Subm Dr: Aurea Duran Tissues: A Endometrium - Biopsy (EMB) B Endocervix - Curettings (ECC) Procedures: Malou DICKINSON/Fito L4/2 ---- Patient: Mai Palomares [id number] (Continued) ---- Signed (signature on file) Emani Ramirez MD 01/26/24 1419 Normal [facility] MAMM SCREENING BILATERAL W C diploma medical assistant 12-08-2023 MAMM SCREENING BILATERAL W CAD MAMM [...] AM 2 b MAMM 1 YR Normal [facility] BASIC METABOLIC PANLon 11-27 Anion gap [Moles/Vol] 11 mmol/L Normal 5-15 [facility] Comment on above: Performed By: #### C BCA, BMP, 86069-3, LIVR, 3016-3 #### [facility] ([id number]) [address], [address] [place] [address] Calcium [Mass/Vol] 9.5 mg/dL Normal 8.5-10.5 [facility] Comment on above: Performed By: #### C BCA, BMP, 41113-0, LIVR, 3016-3 #### [facility] ([id number]) [address], [address] [place] [address] Chloride [Moles/Vol] 105 mmol/L Normal 98-109 [facility] Comment on above: Performed By: #### C BCA, BMP, 03131-0, LIVR, 3016-3 #### [facility] ([id number]) [address], [address] [place] [address] CO2 [Moles/Vol] 25 mmol/L Normal 22-32 [facility] Comment on above: Performed By: #### C BCA, BMP, 17514-0, LIVR, 3016-3 #### [facility] ([id number]) [address] [address] [place] [address] Creatinine [Mass/Vol] 0.85 mg/dL Normal 0.40-1.00 [facility] Comment on above: Result Comment: METH OD TRACEABLE TO IDMS STANDARD Performed By: #### C BCA, BMP, 14942-1, LIVR, 3016-3 #### [facility] ([id number]) [address] [address] [place] [address] GFR/1.73 sq M.predicted among non-blacks MDRD (S/P/Bld) [Vol rate/Area] 86 mL/min/{1.73_m2} Normal >59 [facility] Comment on above: Result Comment: Reported eGFR is based on the CKD-EPI 2020 equation that does not use a race coefficient. Performed By: #### C BCA, BMP, 91689-2, LIVR, 3016-3 #### [facility] ([id number]) [address] [address] Glucose [Mass/Vol] 69 mg/dL Normal 65-99 [facility] Comment on above: Performed By: #### C BCA, BMP, 24019-5, LIVR, 3016-3 #### [facility] ([id number]) [address] [address] Potassium [Moles/Vol] 3.4 mmol/L Low 3.5-5.0 [facility] Comment on above: Performed By: #### C BCA, BMP, 70041-5, LIVR, 3016-3 #### [facility] ([id number]) [address] [address] Sodium [Moles/Vol] 141 mmol/L Normal 134-146 [facility] Comment on above: Performed By: #### C BCA, BMP, 86555-5, LIVR, 3016-3 #### [facility] ([id number]) [address] [place] [address] Urea nitrogen [Mass/Vol] 9 mg/dL Normal 5-23 [facility] Comment on above: Performed By: #### C BCA, BMP, 20903-3, LIVR, 3015- #### [facility] ([id number]) [address], [facility] [address] [place] [address] CBC AND AUTO DIFFon 11-28-19 24 ABSOLUTE BASOPHIL 0.1 X10E9/L Normal 0.0-0.2 [facility] Comment on above: Performed By: #### C BCA, BMP, 29789-5, LIVR, 3015- #### [facility] ([id number]) [address], [facility] [address] [place] [address] ABSOLUTE NEUTROPHIL 3.9 X10E9/L Normal 1.5-6.6 [facility] Comment on above: Performed By: #### C BCA, BMP, 38404-7, LIVR, 3015- #### [facility] ([id number]) [address] [address] Basophils/100 WBC (Bld) 0.8 % Normal [facility] Comment on above: Performed By: #### C BCA, BMP, 09374-6, LIVR, 3015- #### [facility] ([id number]) [address] [address] [address] [place] [address] Eosinophils (Bld) [#/Vol] 0.1 10*3/uL Normal 0.0-0.4 [facility] Comment on above: Performed By: #### C BCA, BMP, 78321-2, LIVR, 3015-3 #### [facility] ([id number]) [address] [address] [place] [address] Eosinophils/100 WBC (Bld) 1.6 % Normal [facility] Comment on above: Performed By: #### C BCA, BMP, 45694-6, LIVR, 3015-11 #### [facility] ([id number]) [address] [place] [address] Erythrocyte distribution width (RBC) [Ratio] 12.7 % Normal 11.5-15.0 [facility] Comment on above: Performed By: #### C BCA, BMP, 56951-7, LIVR, 301-3 #### [facility] ([id number]) [address] [place] [address] Hematocrit (Bld) [Volume fraction] 42.5 % Normal 35-47 [facility] Comment on above: Performed By: #### C BCA, BMP, 89037-0, LIVR, 3015-11 #### [facility] ([id number]) [address] [address] [place] [address] Hemoglobin (Bld) [Mass/Vol] 14.3 g/dL Normal 11.7-15.5 [facility] Comment on above: Performed By: #### C BCA, BMP, 65882-1, LIVR, 3015-11 #### [facility] ([id number]) [address] [address] [place] [address] Lymphocytes (Bld) [#/Vol] 2.3 10*3/uL Normal 1.0-3.5 [facility] Comment on above: Performed By: #### C BCA, BMP, 03963-2, LIVR, 3015-11 #### [facility] ([id number]) [address] [address] [place] [address] Lymphocytes/100 WBC (Bld) 33.2 % Normal [facility] Comment on above: Performed By: #### C BCA, BMP, 95887-2, LIVR, 3015- #### [facility] ([id number]) [address] [address] [place] [address] MCH (RBC) [Entitic mass] 29.4 pg Normal 27-34 [facility] Comment on above: Performed By: #### C BCA, BMP, 50518-6, LIVR, 3016-3 #### [facility] ([id number]) [address] [place] [address] MCHC (RBC) [Mass/Vol] 33.6 g/dL Normal 32-36 [facility] Comment on above: Performed By: #### C BCA, BMP, 16737-0, LIVR, 6-3 #### [facility] ([id number]) [address], [facility] [address] [place] [address] MCV (RBC) [Entitic vol] 88 fL Normal 80-100 [facility] Comment on above: Performed By: #### C BCA, BMP, 27621-5, LIVR, 3015- #### [facility] ([id number]) [address], [address] [place] [address] Monocytes (Bld) [#/Vol] 0.5 10*3/uL Normal 0-0.9 [facility] Comment on above: Performed By: #### C BCA, BMP, 47433-1, LIVR, 3015-11 #### [facility] ([id number]) [address], [facility] [address] [place] [address] Monocytes/100 WBC (Bld) 7.5 % Normal [facility] Comment on above: Performed By: #### C BCA, BMP, 66618-0, LIVR, 3015- #### [facility] ([id number]) [address], [address] [place] [address] Neutrophils/100 WBC (Bld) 56.9 % Normal [facility] Comment on above: Performed By: #### C BCA, BMP, 71993-1, LIVR, 3016-3 #### [facility] ([id number]) [address] [place] [address] Platelet mean volume (Bld) [Entitic vol] 7.3 fL Normal 7-12 [facility] Comment on above: Performed By: #### Victorino BAIRES BMP, 33485-4, LIVR, 301-3 #### [facility] ([id number]) [address] [place] [address] Platelets (Bld) [#/Vol] 392 10*3/uL Normal 150-450 [facility] Comment on above: Performed By: #### C VIRY, BMP, 34165-2, LIVR, 6-3 #### [facility] ([id number]) [address], [facility] [address] [place] [address] RBC COUNT 4.85 X10E12/L Normal 3.80-5.20 [facility] Comment on above: Performed By: #### Victorino BAIRES BMP, 26128-0, LIVR, 3015-3 #### [facility] ([id number]) [address] [place] [address] WBC (Bld) [#/Vol] 6.8 10*3/uL Normal 4.0-11.0 [facility] Comment on above: Performed By: #### Victorino BAIRES, BMP, 72539-3, LIVR, 3015-3 #### [facility] ([id number]) [address] [place] [address] HGB A1C (GLYCO-HGB)on 2023 Glucose [Mass/Vol] 103 mg/dL Normal [facility] Comment on above: Performed By: #### Victorino BAIRES, BMP, 74440-6, LIVR, 3016-3 #### [facility] ([id number]) [address], [address] [place] [address] HbA1c (Bld) [Mass fraction] 5.2 % Normal 4.4-5.6 [facility] Comment on above: Result Comment: NOTE ADA Guidelines Result HgbA1c Normal : less than 5.7 % Prediabetes : 5.7 % to 6.4 % Diabetes : > 6.4 % Use with caution in patients with abnormal hemoglobin variants as the half-life of red blood cells and in vivo glycation rates are affected. Performed By: #### C BCA, BMP, 88545-9, LIVR, 3016-3 #### [facility] ([id number]) [address] [address] [place] [address] LIVER PANELon 11-28-2023 Albumin [Mass/Vol] 4.2 g/dL Normal 3.2-5.3 [facility] Comment on above: Performed By: #### C BCA, BMP, 81562-0, LIVR, 3016-3 #### [facility] ([id number]) [address], [address] [place] [address] ALP [Catalytic activity/Vol] 59 U/L Normal 39-130 [facility] Comment on above: Performed By: #### C BCA, BMP, 69095-8, LIVR, 6-3 #### [facility] ([id number]) [address], [address] [place] [address] ALT [Catalytic activity/Vol] 25 U/L Normal 0-31 [facility] Comment on above: Performed By: #### C BCA, BMP, 57421-0, LIVR, 6-3 #### [facility] ([id number]) [address], [address] [place] [address] AST [Catalytic activity/Vol] 20 U/L Normal 0-41 [facility] Comment on above: Performed By: #### C BCA, BMP, 98107-9, LIVR, 3016-3 #### [facility] ([id number]) [address], [address] [place] [address] Bilirubin [Mass/Vol] 0.3 mg/dL Normal 0.3-1.2 [facility] Comment on above: Performed By: #### C BCA, BMP, 23277-4, LIVR, 3016-3 #### [facility] ([id number]) [address], [address] [place] [address] Bilirubin.direct [Mass/Vol] 0.1 mg/dL Normal 0.0-0.4 [facility] Comment on above: Performed By: #### C BCA, BMP, 67915-4, LIVR, 3016-3 #### [facility] ([id number]) [address], [address] [place] [address] Protein [Mass/Vol] 7.5 g/dL Normal 6.0-8.0 [facility] Comment on above: Performed By: #### Victorino BCA, BMP, 40655-8, LIVR, 3016-3 #### [facility] ([id number]) [address], [address] [place] [address] Lipid 1996 panelon 4 Cholesterol [Mass/Vol] 205 mg/dL High 150-200 [facility] Comment on above: Performed By: #### C BCA, BMP, 13987-0, LIVR, 3016-3 #### [facility] ([id number]) [address], [address] [place] [address] Cholesterol in HDL [Mass/Vol] 39 mg/dL Low >39 [facility] Comment on above: Result Comment: HDL <40 mg/dL - High Risk HDL > or = 40mg/dL- Desirable HDL >60 mg/dL - Negative Risk Performed By: #### C BCA, BMP, 79089-0, LIVR, 3016-3 #### [facility] ([id number]) [address], [address] [place] [address] Cholesterol in LDL [Mass/Vol] 134 mg/dL High <130 [facility] Comment on above: Result Comment: LDL <100 mg/dL - Desirable LDL >160 mg/dL - High Risk Performed By: #### C BCA, BMP, 05748-2, LIVR, 3016-3 #### [facility] ([id number]) [address], [address] [place] [address] Cholesterol in VLDL [Mass/Vol] 32 mg/dL High 0-30 [facility] Comment on above: Performed By: #### C BCA, BMP, 79136-0, LIVR, 3016-3 #### [facility] ([id number]) [address], [facility] [address] [place] [address] CHOLESTEROL:HDL 5.3 High 1.0-5.0 [facility] Comment on above: Performed By: #### C BCA, BMP, 01523-3, LIVR, 3016-3 #### [facility] ([id number]) [address], [address] [place] [address] Triglyceride [Mass/Vol] 158 mg/dL High 27-150 [facility] Comment on above: Performed By: #### C BCA, BMP, 01561-8, LIVR, 3016-3 #### [facility] ([id number]) [address], [facility] [address] [place] [address] TSH Qnon 11-28-2023 TSH 2.66 uIU/mL Normal 0.49-4.67 [facility] Comment on above: Performed By: #### C BCA, BMP, 12191-0, LIVR, 3016-3 #### [facility] ([id number]) [address] [address] [place] [address] Vital Signs Date Time Vital Sign Value Performing Clinician Facility 11-12-2024 15:14-0500 Body mass index (BMI) [Ratio] 26.16 kg/m2 Aurea Roger DO Work Phone: [facility] 11-12-2024 15:14-0500 Body weight 64.86 kg Aurea Roger DO Work Phone: [facility] 11-12-2024 15:14-0500 Diastolic blood pressure 72 mm[Hg] Aurea Roger DO Work Phone: [facility] 11-12-2024 15:14-0500 Systolic blood pressure 118 mm[Hg] Aurea Roger DO Work Phone: [facility] 09-25-2024 15:18-0500 Body mass index (BMI) [Ratio] 26.34 kg/m2 Aurea Roger DO Work Phone: [facility] 09-25-2024 15:18-0500 Body weight 65.32 kg Aurea Roger DO Work Phone: [facility] 09-25-2024 15:18-0500 Diastolic blood pressure 74 mm[Hg] Aurea Roger DO Work Phone: [facility] 09-25-2024 15:18-0500 Systolic blood pressure 110 mm[Hg] Aurea Roger DO Work Phone: [facility] 08-30-2024 14:39-0500 Body height 157.5 cm Vance Bourgeois MD Work Phone: [facility] 08-30-2024 14:39-0500 Body mass index (BMI) [Ratio] 26.34 kg/m2 Vance Bourgeois MD Work Phone: [facility] 08-30-2024 14:39-0500 Body temperature 98.2 [degF] Vance Bourgeois MD Work Phone: [facility] 08-30-2024 14:39-0500 Body weight 65.32 kg Vance Bourgeois MD Work Phone: [facility] 08-30-2024 14:39-0500 Diastolic blood pressure 64 mm[Hg] Vance Bourgeois MD Work Phone: [facility] 08-30-2024 14:39-0500 Heart rate 74 /min Vance Bourgeois MD Work Phone: [facility] 08-30-2024 14:39-0500 Respiratory rate 20 /min Vance Bourgeois MD Work Phone: [facility] 08-30-2024 14:39-0500 SaO2% (BldA) [Mass fraction] 97 % Vance Bourgeois MD Work Phone: [facility] 08-30-2024 14:39-0500 Systolic blood pressure 106 mm[Hg] Vance Bourgeois MD Work Phone: [facility] 06-14-2024 14:30-0400 Body height 157.5 cm Vance Bourgeois MD Work Phone: [facility] 06-14-2024 14:30-0400 Body mass index (BMI) [Ratio] 26.52 kg/m2 Vance Bourgeois MD Work Phone: [facility] 06-14-2024 14:30-0400 Body temperature 97.81 [degF] Vance Bourgeois MD Work Phone: [facility] 06-14-2024 14:30-0400 Body weight 65.77 kg Vance Bourgeois MD Work Phone: [facility] 06-14-2024 14:30-0400 Diastolic blood pressure 58 mm[Hg] Vance Bourgeois MD Work Phone: [facility] 06-14-2024 14:30-0400 Heart rate 95 /min Vance Bourgeois MD Work Phone: [facility] 06-14-2024 14:30-0400 Respiratory rate 22 /min Vance Bourgeois MD Work Phone: [facility] 06-14-2024 14:30-0400 SaO2% (BldA) [Mass fraction] 98 % Vance Bourgeois MD Work Phone: [facility] 06-14-2024 14:30-0400 Systolic blood pressure 110 mm[Hg] Vance Bourgeois MD Work Phone: [facility] 04-09-2024 14:28-0400 Body height 158.75 cm DO Aurea Roger Work Phone: [facility] 04-09-2024 14:28-0400 Body mass index (BMI) [Ratio] 25.2 kg/m2 DO Aurea Roger Work Phone: [facility] 04-09-2024 14:28040 Body temperature 98.2 [degF] DO Aurea Roger Work Phone: [facility] 04-09-2024 14:28-040 Body weight 63.5 kg DO Aurea Roger Work Phone: [facility] 04-09-2024 14:28-0400 Diastolic blood pressure 83 mm[Hg] DO Aurea Roger Work Phone: [facility] 04-09-2024 14:28-0400 Heart rate 84 /min DO Aurea Roger Work Phone: [facility] 04-09-2024 14:28-0400 Respiratory rate 18 /min DO Aurea Roger Work Phone: [facility] 04-09-2024 14:28-0400 SaO2% (BldA) [Mass fraction] 98 % DO Aurea Roger Work Phone: [facility] 04-09-2024 14:28-0400 Systolic blood pressure 123 mm[Hg] DO Aurea Roger Work Phone: [facility] 2023 16:10-0400 Body height 157.48 cm Kajal Herrera Other [facility] Other 2023 16:10-0400 Body mass index (BMI) [Ratio] 25.09 kg/m2 Kajal Herrera Other [facility] Other 2023 16:10-0400 Body temperature 99 [degF] Kajal Herrera Other [facility] Other 2023 16:10-0400 Body weight 62.23 kg Kajal Herrera Other [facility] Other 2023 16:10-0400 Diastolic blood pressure 79 mm[Hg] Kajal Herrera Other [facility] Other 2023 16:10-0400 Respiratory rate 18 /min Kajal Herrera Other [facility] Other 2023 16:10-0400 SaO2% (BldA) [Mass fraction] 98 % Kajal Herrera Other [facility] Other 2023 16:10-0400 Systolic blood pressure 115 mm[Hg] Kajal Herrera Other [facility] Other Encounters Encounter Date Encounter Type Care Provider Facility Start: 11-29-2024 End: 11-29-2024 ambulatory AUREA ROGER Not Available Start: 11-22-2024 End: 11-22-2024 Clinisync Result Encounter Generic External Data Provider [facility] External Department Unsolicited Start: 11-22-2024 End: 11-22-2024 Clinisync Result Encounter Generic External Data Provider [facility] External Department Unsolicited Start: 11-12-2024 End: 11-12-2024 Office outpatient visit 15 minutes Aurea Duran DO Work Phone: [facility] Comment on above: Pre-op evaluation; Menorrhagia with regular cycle; Pelvic pain in female; Dyspareunia, female; Dysmenorrhea Start: 11-12-2024 End: 11-12-2024 Preprocedural examination done Aurea Roger DO Work Phone: [facility] Start: 11-12-2024 End: 11-12-2024 ambulatory AUREA ROGER Not Available Start: 11-12-2024 End: 11-12-2024 Bamboo flowsheet Aurea Roger DO Work Phone: [facility] Start: 11-12-2024 End: 11-12-2024 Bamboo flowsheet Aurea Roger DO Work Phone: [facility] Start: 10-02-2024 End: 10-02-2024 Clinisync Result Encounter Generic External Data Provider [facility] External Department Unsolicited Start: 10-02-2024 End: 10-02-2024 Clinisync Result Encounter Generic External Data Provider [facility] External Department Unsolicited Start: 09-25-2024 End: 09-25-2024 Office outpatient visit 15 minutes Aurea Roger DO Work Phone: [facility] Comment on above: Postop check; Menorrhagia with regular cycle Start: 09-25-2024 End: 09-25-2024 ambulatory AUREA ROGER Not Available Start: 09-25-2024 End: 09-25-2024 Bamboo flowsheet Aurea Roger DO Work Phone: [facility] Start: 09-25-2024 End: 09-25-2024 Bamboo flowsheet Aurea Roger DO Work Phone: [facility] Start: 08-30-2024 End: 08-30-2024 Office outpatient visit 25 minutes Vance Bourgeois MD Work Phone: [facility] Comment on above: Migraine without aur [...] 06-19-2024 End: 06-19-2024 Emergency department patient visit [facility] Start: 06-14-2024 End: 06-14-2024 Office outpatient [...] 06-06-2024 End: 06-06-2024 Emergency department patient visit [facility] Start: 04-09-2024 End: 04-09-2024 ambulatory DO Aurea Roger Work Phone: [facility] Work Phone: Start: 04-09-2024 End: 04-09-2024 Patient encounter procedure DO Aurea Roger Work Phone: [facility] Work Phone: Start: 03-21-2024 End: 03-21-2024 ambulatory AUREA ROGER Not Available Start: 02-28-2024 End: 02-28-2024 ambulatory VANCE BOURGEOIS Not Available Start: 02-17-2024 End: 02-17-2024 ambulatory Aurea Roger [facility] Work Phone: Start: 02-17-2024 End: 02-17-2024 Departed Referred Aurea Roger Work Phone: [facility] Start: 01-23-2024 End: 01-23-2024 Departed Referred Aurea Roger Work Phone: [facility] Start: 01-23-2024 End: 01-23-2024 ambulatory Aurea Roger Facility:[facility] Start: 12-27-2023 End: 12-27-2023 ambulatory AUREA ROGER Not Available Start: 12-22-2023 End: 12-22-2023 ambulatory MIR MIRELES Not Available Start: 12-07-2023 End: 12-07-2023 ambulatory [facility] Start: 11-28-2023 End: 11-28-2023 ambulatory [facility] Start: 11-28-2023 Encounter for genera l adult medical examination without abnormal findings [facility] Start: 11-22-2023 Patient encounter procedure Vance Bourgeois MD Work Phone: [facility] Start: 2023 End: 2023 ambulatory Kajal Herrera Other [facility] Other Start: 2023 Office outpatient ne w 20 minutes Kajal Herrera [facility] Procedures Date Procedure Procedure Detail Performing Clinician Start: 11-22-2024 ALL CBC WITH AUTO DIFF Aurea Roger DO Work Phone: Start: 11-22-2024 ECG 12-LEAD Generic Ex ternal Data Provider Start: 10-02-2024 ALL CBC WITH AUTO DIFF Aurea Roger DO Work Phone: Start: 12-08-2023 Mammography Vance ramirez MD Work Phone: Start: 11-14-2023 Microscopic observat ion [Identifier] in Cervix by Cyto stain Vance Bourgeois MD Work Phone: Plan of Treatment Date Care Activity Detail Author Start: 11-13-2028 Screening for malign ant neoplasm of cervix [facility] Start: 12-15-2026 Screening for malign ant neoplasm of colon [facility] Start: 02-28-2025 End: 02-28-2025 Patient encounter procedure 02/28/2025 2:30 PM EDT Office Visit [facility] [address] [place] [phone] Vance Bourgeois MD [address] [place] [phone] [facility] Start: 12-07-2024 Screening for malign ant neoplasm of breast Mammogram [facility] Start: 11-12-2024 End: 11-12-2024 Patient encounter procedure [facility] Comment on above: Arrived Start: 11-01-2024 End: 11-01-2024 Professional / ancillary services management 11/01/2024 2:30 PM EST Ancillary Procedure [facility] [address] [facility] [address] [place] [address] [facility] Start: 10-16-2024 End: 10-16-2024 Professional / ancillary services management 10/16/2024 2:30 PM EST Ancillary Procedure [facility] [address] [place] [address] [facility] Start: 09-25-2024 End: 09-25-2024 [...] with regular cycle Expected: 09/25/2024, Expires: 09/25/2025 [facility] Comment on above: Expected: 09/25/2024 , Expires: 09/25/2025 Start: 08-30-2024 End: 08-30-2024 Patient encounter procedure [facility] Comment on above: Arrived Start: 06-14-2024 End: 06-14-2024 Patient encounter procedure 06/14/2024 2:30 PM EDT Office Visit [facility] [address] [place] [phone] Vance Bourgeois MD [address] [place] [phone] Arrived [facility] Comment on above: Arrived Start: 05-13-2024 Influenza vaccination Influenza Vacc ine (#1) [facility] Start: 1980 Screening for malign ant neoplasm of colon [facility] CBC W Auto Different ial panel - Blood CBC and differential Lab Routine Menorrhagia with regular cycle Ordered: 09/25/2024 [facility] Work Phone: Comment on above: Ordered: 09/25/2024 hCG, quantitative, hCG, quantitative, Lab Routine Menorrhagia with regular cycle Ordered: 09/25/2024 [facility] Comment on above: Ordered: 09/25/2024 Hemoglobin A1c/Hemoglobin.total in Blood Hemoglobin A1c Lab Routine Menorrhagia with regular cycle Ordered: 09/25/2024 [facility] Comment on above: Ordered: 09/25/2024 Prothrombin time (PT ) in Blood by Coagulation assay Protime-INR Lab Routine Menorrhagia with regular cycle Ordered: 09/25/2024 [facility] Comment on above: Ordered: 09/25/2024 Thyrotropin [Units/volume] in Serum or Plasma TSH Lab Routine Menorrhagia with regular cycle Ordered: 09/25/2024 [facility] Comment on above: Ordered: 09/25/2024 Thyroxine (T4) free [Mass/volume] in Serum or Plasma T4, free Lab Routine Menorrhagia with regular cycle Ordered: 09/25/2024 [facility] Comment on above: Ordered: 09/25/2024 Payers Date Payer Category Payer Self-pay 2022 [employer] BCBS [id number] 2022 Unknown BCBS BCBS [id number] 2022-Present [phone] [id number] [place] [address] [id number] 2022 Blue Cross Blue Shield [id number] 1978 Unknown [id number] 2.840.1.628235.3.579. 2.1286 1978 Unknown [id number]. 2.1286 1978 Unknown [id number] 2.840.1.481777.3.579. 2.1286 1978 Unknown [id number] 2.16840.1.717126.3.579. 2.1286 1978 Unknown [id number] 2.16840.1.305787.3.579. 2.1259 1978 Unknown [id number] 2.16840.1.400516.3.579. 2.1259 1978 Unknown [id number] 2.16840.1.546699.3.579. 2.9 1978 Unknown [id number] 2.16.840.1.373445.3.579. 2.9 1978 Unknown [id number] 2.16.840.1.310235.3.579. 2.9 1978 Unknown [id number] 2.16.840.1.455108.3.579. 2.9 1978 Unknown [id number] 2.16.840.1.055835.3.579. 2.9 1978 Unknown [id number] 2.16.840.1.449926.3.579. 2.9 1978 Unknown [id number] 2.16.840.1.366222.3.579. 2.9 1978 Unknown [id number] 2.16.840.1.653686.3.579. 2.9 Social History Date Type Detail Facility Unknown if ever smoked [facility] Other Start: 11-15-2023 End: 08-30-2024 Sex Assigned At [facility] Start: 1980 Sex Assigned At Female [facility] Start: 11-22-2023 Tobacco smoking status [facility] Never smoked tobacco [facility] Start: 11-22-2023 Tobacco use and exposure Smokeless tobacco non-user [facility] Start: 03-21-2024 End: 11-12-2024 Alcoholic beverage intake Ex-drinker (finding) [facility] Start: 11-15-2023 End: 08-30-2024 History of Social function [facility] Do you belong to any clubs or organizations such as buddhist groups, unions, fraternal or athletic groups, or [...] Narrative Reason for Appointment: Patient ID: Mai Palomares is a 44 y.o. female who presents for Pre-op Visit (Pt present today for a pre operative visit for a hysterectomy.) Patient presents today for Pre Op appointment. Patient is scheduled to undergo Total Abdominal Hysterectomy, possible BSO, possible cystoscopy on 12/05/[address] Duran at [facility]. MEDICATIONS Current Outpatient Medications Medication Instructions albuterol HFA 90 mcg/act inhaler amitriptyline (ELAVIL) 25 mg, Oral, Nightly dabfmbupmb-xkwzujfkkcupu-brwqatlf 50-325-40 MG tablet 1 tablet, Oral, 4 [...] MDD (major depressive disorder), recurrent episode, moderate ([facility]) 11/22/2023 Dysmenorrhea 08/30/2024 Resolved Ambulatory Problems Diagnosis Date Noted Acute bronchitis due to other specified organisms 06/14/2024 Past Medical History: Diagnosis Date KVNG (generalized anxiety disorder) ([facility]) Migraine with aura and without status migrainosus, not intractable ([facility]) Seasonal allergic rhinitis due to pollen HISTORY PAST MEDICAL HISTORY SOCIAL HISTORY Past Medical History: Diagnosis Date KVNG (generalized anxiety disorder) ([facility]) Migraine with aura and without status migrainosus, not intractable ([facility]) Seasonal allergic rhinitis due to pollen Social [...] nursing note reviewed. Exam conducted with a child support specialist present. Vitals: Estimated body mass index is [...] reviewed, and patient is to proceed to [facility] OR. Follow Up: Patient is to [...] Narrative Reason for Appointment: Patient ID: Mai Palomares is a 44 y.o. female who presents for Post-op Visit Patient presents today for Acute Visit. MEDICATIONS Current Outpatient Medications Medication Instructions amitriptyline (ELAVIL) 25 mg, Oral, Nightly ylnnhkiovc-saimmbqmqekpi-vrxdcvdf 50-325-40 MG tablet 1 tablet, Oral, 4 [...] Problems Diagnosis Date Noted Generalized anxiety disorder ([facility]) 11/22/2023 Migraine without aura and without status migrainosus, not intractable ([facility]) 11/22/2023 Allergic rhinitis due to pollen 11/22/2023 Annual physical exam 11/22/2023 MDD (major depressive disorder), recurrent episode, moderate ([facility]) 11/22/2023 Dysmenorrhea 08/30/2024 Resolved Ambulatory Problems Diagnosis Date Noted Acute bronchitis due to other specified organisms 06/14/2024 Past Medical History: Diagnosis Date KVNG (generalized anxiety disorder) ([facility]) Migraine with aura and without status migrainosus, not intractable ([facility]) Seasonal allergic rhinitis due to pollen HISTORY PAST MEDICAL HISTORY SOCIAL HISTORY Past Medical History: Diagnosis Date KVNG (generalized anxiety disorder) ([facility]) Migraine with aura and without status migrainosus, not intractable ([facility]) Seasonal allergic rhinitis due to pollen Social [...] calculated from the following: Height as of 24: 5' 2 . Weight as of this [...] and monitor. Associated Problem(s): Generalized anxiety disorder ([facility]) Occasional symptoms but tolerable and use hydroxyzine PRN. Associated Problem(s): Dysmenorrhea Frequent symptoms and start motrin PRN. Follow with metallurgical laboratory assistant. Subjective Patient ID: Mai Palomares is a 44 y.o. female who presents [...] C/o severe cramping and irregular periods. Seen metallurgical laboratory assistant and had ablation. Scheduled next month. Requests [...] Relevant Medications rizatriptan (Maxalt) 10 MG tablet okzxhmbzqg-sfuwvrctecnfw-nokczvep 50-325-40 MG tablet MDD (major depressive disorder), recurrent episode, moderate (CMS/HCC) Occasional symptoms but tolerable without medication and monitor. Dysmenorrhea Frequent symptoms and start motrin PRN. Follow with metallurgical laboratory assistant. Relevant Medications ibuprofen 800 MG tablet documented in this encounter [facility] History of Present illness Narrative 06-14-2024 Vance Bourgeois MD - 06/14/2024 2:47 PM EDTMleo Bourgoeis MD - 06/14/2024 2:30 PM EDT Note [...] were not included. Subjective Patient ID: Mai Palomares is a 43 y.o. female who presents [...] 10 MG tablet documented in this encounter [facility] Healthcare Evaluation note 2023 Note Date & [...] no improvement in 2 to [address] [facility] [place] Other Evaluation note Note Date & Type Note Facility Evaluation note [facility] Evaluation note Note Date & Type Note Facility Evaluation note Diagnosis Acute bronchitis due to other specified organisms- Primary documented in this encounter [facility] Healthcare Evaluation note Note Date & Type [...] anxiety disorder Dysmenorrhea documented in this encounter [facility] Healthcare Evaluation note Note Date & Type [...] Status: Active Member Role Status Dates [facility] Primary Care Provider Active Team Status: Inactive [...] 09, 2024 End: April 09, 2024 [facility] Primary Care Provider Active Start: April 09, 2024 End: April 09, 2024 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 Specialty Start Date End Date Vance Bourgeois MD [address] [place] [phone] PCP - [employer] 06/12/23 Vance Bourgeois MD [address] [place] [phone] PCP - General Family Medicine 10/17/23 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 Specialty Start Date End Date Vance Bourgeois MD [address] [place] [phone] PCP - [employer] 06/12/23 Vance Bourgeois MD [address] [place] [phone] PCP - General Family Medicine 10/17/23 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 Specialty Start Date End Date Vance Bourgeois MD [address] [place] [address] PCP - [employer] 06/12/23 Vance Bourgeois MD [address] [place] [address] PCP - General Family Medicine 10/17/23 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 Specialty Start Date End Date Vance Bourgeois MD [address] [place] [address] PCP - [employer] 06/12/23 Vance Bourgeois MD [address] [place] [address] PCP - General Family Medicine 10/17/23 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 Specialty Start Date End Date Vance Bourgeois MD [address] [place] [address] PCP - [employer] 06/12/23 Vance Bourgeois MD [address] [place] [address] PCP - General Family Medicine 10/17/23 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 Specialty Start Date End Date Vance Bourgeois MD [address] [place] [address] PCP - [employer] 06/12/23 Vance Bourgeois MD [address] [place] [address] PCP - General Family Medicine 10/17/23 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 Specialty Start Date End Date Vance Bourgeois MD [address] [place] [phone] PCP - [employer] 06/12/23 Vance Bourgeois MD [address] [place] [phone] PCP - General Family Medicine 10/17/23 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 Specialty Start Date End Date Vance Bourgeois MD [address] [place] [phone] PCP - [employer] 06/12/23 Vance Bourgeois MD [address] [place] [phone] PCP - General Family Medicine 10/17/23 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 Specialty Start Date End Date Vance Bourgeois MD [address] [place] [phone] PCP - [employer] 06/12/23 Vance Bourgeois MD [address] [place] [phone] PCP - General Family Medicine 10/17/23 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 Specialty Start Date End Date Vance Bourgeois MD [address] [place] [phone] PCP - [employer] 06/12/23 Vance Bourgeois MD [address] [place] [phone] PCP - General Family Medicine 10/17/23 Goals (unrecognized section and content) Goals may be documented in a n alternate section INFORMATION SOURCE (unrecogn ized section and content) DATE CREATED AUTHOR 02/18/2024 [facility] DATE CREATED AUTHOR AUTHOR'S IVAN ATION 06/21/2024 [facility] DATE CREATED AUTHOR AUTHOR'S ORGANIZ ATION 12/01/[address] [facility] FOR RECORDS PERTAINING TO PATIENTS WHO ARE [...] BE BASED ON THE PRIMARY CLINICAL RECORDS. [facility]. provides no warranty or guarantee of the accuracy or completeness of information in this document.
[2024-12-05 06:21] LABS: Basophils Absolute Auto 0.1 10^3/uL (0.0-0.1); Eosinophils Absolute Auto 0.2 10^3/uL (0.0-0.7); Eosinophils Percent Auto 3.4 % (0.9-7.0); Hematocrit 42.3 % (36.0-48.0); Hemoglobin 14.3 g/dL (12.0-16.0); Immature Granulocytes Abs Auto 0.02 10^3/uL (0.00-0.03); Immature Granulocytes Pct Auto 0.3 % (0.0-0.5); Lymphocytes Percent Auto 33.4 % (20.5-60.0); Mean Corpuscular HGB Conc 33.8 g/dL (29.9-35.2); Mean Corpuscular Hemoglobin 29.1 pg (26.7-34.0); Mean Corpuscular Volume 86.2 fL (81.0-99.0); Mean Platelet Volume 8.4 fL (9.5-13.5); Monocytes Absolute Auto 0.6 10^3/uL (0.3-0.8); Monocytes Percent Auto 9.3 % (1.7-12.0); Neutrophils Absolute Auto 3.1 10^3/uL (1.4-6.5); Neutrophils Percent Auto 52.6 % (43.0-75.0); Platelet Count 376 10^3/uL (150-450); Red Blood Count 4.91 10^6/uL (4.20-5.40); Red Cell Distribution Width 12.7 % (11.0-15.0); White Blood Count 5.9 10^3/uL (4.0-11.0)
[2024-12-05] MEDS: CIPROFLOXACIN 400 MG/200 ML D5W PREMIX 200 MG IV (06:51)
[2024-12-05] MEDS: LACTATED RINGER'S SOLUTION 1,000 ML 50 ML IV ×2 (06:51→09:40)
[2024-12-05 06:55] LABS: HCG Quantitative <1 mIU/mL
[2024-12-05] MEDS: METRONIDAZOLE/SODIUM CHLORIDE 500 MG/100 ML PREMIX 100 MG IV ×2 (07:36→15:04)
--- NOTE | 2024-12-05 10:46 | PM.ONB ---
Brief Operative Note Date of procedure: 12/05/24 Pre-op diagnosis general: menorrhagia, aub, pelvic pain, dysmenorrhea Post-op diagnosis: same as pre-op Procedure: NAME OF PROCEDURE: Total abdominal hysterectomy, with cystoscopy. PROCEDURE: Patient was taken back to the Operating Room where she was given general anesthesia without difficulty. She was then prepped and draped in the normal sterile fashion. A Pfannenstiel skin incision was then made 2 cm above the symphysis and pubis and carried down to underlying rectus fascia using a Bovie. The fascia was incised in the midline and extended bilaterally using Cedeno scissors. Two Yolette clamps were placed on the superior aspect of the fascia and dissected off the underlying rectus muscle. The same was performed on the inferior aspect as well. The muscle was then in the midline. The peritoneum was identified and entered bluntly. Peritoneum was then extended superiorly and inferiorly with good visualization of the bladder. An O'Vhprjlke-Z-Nxipmo retractor was placed into the patient's abdomen. The bowel was packed away with moist laparotomy sponges and the bladder blade was inserted. A Leahey tenaculum was placed on the patient's uterus and used for retraction. LigaSure apparatus was then used to come across the uteroovarian ligament on the patient's right side which was then cauterized and transected. This was carried down serially through the broad ligament and across the round ligament. The bladder flap was then created using the Metzenbaum scissors, and thebladder was easily dissected off the patient's lower uterine segment. A curved Kym was placed across the uterine artery on the right side which was clamped, transected, and suture ligated using #0 Monocryl. This was performed on the contralateral side as well. The bladder was further dissected and a Zeppelin clamp was then placed across the uterosacral and cardinal ligaments. This was transected and suture ligated using #0 Monocryl. This was performed on the contralateral side as well. The uterus was then amputated using Chavo scissors. The patient's cuff was closed using #0 PDS in a running locked fashion and this was transfixed to the ipsilateral uterosacral and cardinal ligaments. Excellent hemostasis was assured. The patient's abdomen wascopiously irrigated using warm saline. Cystoscopy was performed. Bladder was intact. Efflux was noted from both ostia. Cystoscope was removed.After excellent hemostasis was assured, all instruments were removed from the patient's abdomen. The patient's peritoneum was closed using 3-0 Vicryl in a running fashion. The patient's fascia was closed using #0 Vicryl in a running fashion. The patient's skin was closed using 4-0 vicryl on a thomas needle. The patient tolerated the procedure well. Sponge, lap, and needle counts were correct times two. Patient taken to the Recovery Room in stable condition Anesthesia: JAKE Surgeon: Greyson Duran Oxyacetylene Cutter: Elizabeth Galaviz Estimated blood loss (mL): 150 Pathology: other (uterus and cervix) Condition: stable Disposition: PACU Urinary Catheter Management Urinary Catheter Management Urethral: Cath placed during this visit: no
[2024-12-05] MEDS: LACTATED RINGER'S SOLUTION 1,000 ML 125 ML IV ×2 (11:22→20:13)
[2024-12-05] MEDS: DOCUSATE SODIUM 100 MG CAPSULE PO (15:04)
[2024-12-05] MEDS: SIMETHICONE 80 MG TAB.CHEW PO (15:04)
[2024-12-05] MEDS: KETOROLAC TROMETHAMINE 30 MG/ML VIAL IVP ×2 (15:04→20:15)
[2024-12-05] MEDS: OXYCODONE HCL/ACETAMINOPHEN 5MG/325MG 2 TAB PO (16:08)
[2024-12-05] MEDS: CIPROFLOXACIN IN 5 % DEXTROSE 400 MG/200 ML PREMIX 200 MG IV (17:01)
[2024-12-05] MEDS: ONDANSETRON PF 4 MG/2 ML VIAL IV (17:13)
[2024-12-06] VITALS: BP 125/60; PULSE 72; TEMP 37; O2SAT 97
[2024-12-06] MEDS: ONDANSETRON PF 4 MG/2 ML VIAL IV ×2 (00:28→05:20)
[2024-12-06] MEDS: OXYCODONE HCL/ACETAMINOPHEN 5MG/325MG 2 TAB PO (00:29)
[2024-12-06 04:00] VITALS: BP 123/73; PULSE 102; TEMP 36.9; O2SAT 96
[2024-12-06] MEDS: LACTATED RINGER'S SOLUTION 1,000 ML 125 ML IV (05:19)
[2024-12-06] MEDS: KETOROLAC TROMETHAMINE 30 MG/ML VIAL IVP ×2 (05:20→11:58)
[2024-12-06 06:22] LABS: Basophils Percent Auto 0.1 % (0.2-2.0); Hematocrit 36.5 % (36.0-48.0); Hemoglobin 12.5 g/dL (12.0-16.0); Immature Granulocytes Abs Auto 0.05 10^3/uL (0.00-0.03); Immature Granulocytes Pct Auto 0.3 % (0.0-0.5); Lymphocytes Absolute Auto 1.1 10^3/uL (1.2-3.8); Lymphocytes Percent Auto 6.7 % (20.5-60.0); Mean Corpuscular HGB Conc 34.2 g/dL (29.9-35.2); Mean Corpuscular Hemoglobin 29.3 pg (26.7-34.0); Mean Corpuscular Volume 85.7 fL (81.0-99.0); Mean Platelet Volume 8.9 fL (9.5-13.5); Monocytes Absolute Auto 1.2 10^3/uL (0.3-0.8); Monocytes Percent Auto 7.4 % (1.7-12.0); Neutrophils Absolute Auto 14.4 10^3/uL (1.4-6.5); Neutrophils Percent Auto 85.5 % (43.0-75.0); Platelet Count 375 10^3/uL (150-450); Red Blood Count 4.26 10^6/uL (4.20-5.40); Red Cell Distribution Width 12.6 % (11.0-15.0); White Blood Count 16.8 10^3/uL (4.0-11.0)
--- OUTSIDE RECORDS SUMMARY | 2024-12-06 07:17 | XMS_ITS | CCD ---
Author Organization [facility] Care Team Providers Care Net Lead Developer Name Role Phone Kajal Herrera Unavailable Aurea Duran Attending Provider Roger, Aurea Admitting Unavailable Roger, Aurea Attending Unavailable Roger, Aurea Admitting Unavailable Roger, Aurea Attending Unavailable Roger DO Aurea Attending Provider [phone] VANCE BOURGEOIS Referring Unavailable CHRISTELLE, VANCE Primary Care Unavailable VANCE BOURGEOIS Referring Unavailable VANCE BOURGEOIS Primary Care Unavailable CHRISTELLE, VANCE Primary Care Unavailable FREDERIC ENGLISH Attending Unavailable CHRISTELLE, VANCE Primary Care Unavailable SANJUANA WHITAKER Attending Unavailable Vance Bourgeois MD Unavailable Vance Bourgeois MD Primary Care Provider AUREA DURAN Attending Unavailable MIR MIRELES Attending Unavailable ROGER, AUREA Attending Unavailable MIR MIRELES Referring Unavailable ROGER, AUREA Attending Unavailable CHRISTELLE, VANCE Attending Unavailable ROGER, AUREA Attending Unavailable VANCE BOURGEOIS Attending Unavailable CHRISTELLE, VANCE Attending Unavailable ROGER, AUREA Attending Unavailable RogerAurea santiago DO Attending Provider Allergies Allergy Classification Reported Allergen(s) Allergy Type Date of Onset Reaction(s) Facility Cephalosporins (antibiotic) (1 source) Cefaclor Drug Allergy 11-08-2023 [facility] Repository (14 sources) Cefaclor; Translations: [CEFACLOR] Drug Allergy 04-09-2024 [facility] Repository Medications Current Medications Medication Drug Class(es) Dates Sig (Normalized) Sig (Original) acetaminophen 325 mg / butalbital 50 mg / caffeine 40 mg oral tablet (19 sources) Barbiturate, Central Nervous System Stimulant, Methylxanthine [...] 1 capsule by mouth every eight hours as needed Seuxisvjlz-Spljulvfwqebq-Abkj (Fioricet) 50-300-40 mg capsule Discontinued 1 CAP PO Every 8 hours as needed November 08, 2023 1:00am April 09, 2024 2:27pm [id number] 200 actuat albuterol 0.09 mg/actuat metered dose inhaler (3 sources) beta2-Adrenergic Agonist Start: 06-07-2024 albuterol HFA 90 mcg/act inhaler 06/07/2024 Active amitriptyline hydrochloride 25 mg oral tablet (17 sources) Tricyclic Antidepressant Start: 02-28-2024 take 1 tablet by mouth once daily Amitriptyline 25 mg tablet Active 25 MG PO Daily April 09, 2024 12:00am take 1 tablet by kathleen th every [...] Every 6 hours April 09, 2024 12:00am Butalbital-Acetamin ophen-Caff 50-325-40 mg tablet (1 source) Start: 04-09-2024 take 1 tablet by mouth every six hours as needed Butalbital-Aceta minophen-Caff 50-325-40 mg tablet Active 1 TAB PO Every 6 hours as needed April 09, 2024 12:00am hydrOXYzine hydrochloride 25 mg oral tablet (16 sources) Antihistamine Start: 04-09-2024 End: 04-09-2025 take 1 tablet by mouth four times daily as needed hydrOXYzine HCl (Atarax) 25 MG tablet Indications: Generalized anxiety disorder (CMS/HCC) TAKE 1 TABLET BY MOUTH 4 TIMES DAILY NEEDED FOR ITCHING 120 tablet 09/13/2024 Active Start: 04-09-2024 take 1 tablet by kathleen th once daily at bedtime Hydroxyzine Hcl 25 mg tablet Active 25 MG PO Daily at bedtime [...] 10/28/2024 Active rizatriptan 10 mg oral tablet (19 sources) Serotonin-1b and Serotonin-1d Receptor Agonist Start: 11-08-2023 take 3 tablets by mouth every twenty-four hours as needed Rizatriptan 10 mg tablet Active 10 MG PO EVERY 2-4 HOURS as needed November 08, 2023 1:00am do not exceed [...] / pseudoephedrine hydrochloride 60 mg oral tablet (3 sources) alpha-Adrenergic Agonist, Uncompetitive T-vprtjq-E-aspartat e Receptor Antagonist, Sigma-1 Agonist Start: 11-08-2023 End: 04-09-2024 take 4 tablets by mouth every twenty-four hours as needed Pseudoephedrine-D m-Guaifenesin (Capmist Dm) 60-15-400 mg tablet Discontinued 1 TAB PO EVERY 4-6 HOURS as needed for cold symptoms November 08, 2023 1:00am April 09, 2024 2:26pm do not exceed 4 doses per 24 hrs fluticasone propionate 0.05 mg/actuat metered dose nasal spray (3 sources) Corticosteroid Start: 11-08-2023 End: 04-09-2024 take [...] due to pollen] Onset: 11-22-2023 11-22-2023 Chronic Other upper respiratory infections (1 source) Acute upper respiratory infection; Translations: [Acute upper respiratory infection, unspecified] 04-09-2024 Episodic Otitis media and related conditions (1 [...] WITH AUTO DIFFon BASOPHILS ABSOLUTE AUTO 0.1 [facility] Basophils/100 WBC (Bld) 1 % 0.2 - 2.0 % [facility] Eosinophils/100 WBC (Bld) 4.1 % 0.9 - 7.0 % [facility] Erythrocyte distribution width (RBC) [Ratio] 12.8 % 11.0 - 15.0 % [facility] Hematocrit (Bld) [Volume fraction] 40.3 % 36.0 - 48.0 % [facility] Hem[facility] (Bld) [Mass/Vol] 13.6 g/dL 12.0 - 16.0 g/dL [facility] IMMATURE GRANULOCYTES ABS AUTO 0.03 [facility] Immature granulocytes/100 WBC (Bld) 0.4 % 0.0 - 0.5 % [facility] Interpretation and review of laboratory results Abnormal [facility] LYMPHOCYTES ABSOLUTE AUTO 2.3 [facility] Lymphocytes/100 WBC (Bld) 34.5 % 20.5 - 60.0 % [facility] (RBC[facility] [Entitic mass] 29.2 pg 26.7 - 34.0 pg [facility] MCHC (RBC) [Mass/Vol] 33.7 g/dL 29.9 - 35.2 g/dL [facility] MCV (RBC) [Entitic vol] 86.5 fL 81.0 - 99.0 fL [facility] MONOCYTES ABSOLUTE AUTO 0.5 [facility] Monocytes/100 WBC (Bld) 7.2 % 1.7 - 12.0 % [facility] NEUTROPHILS ABSOLUTE AUTO 3.6 [facility] Healthcare Neutrophils/100 WBC (Bld) 52.8 % 43.0 - 75.0 % [facility] Platelet mean volume (Bld) [Entitic vol] 8.6 fL Low 9.5 - 13.5 fL [facility] Healthcare TBH EO # 0.3 [facility] TB[facility] PLT 367 [facility] TB[facility] RBC 4.66 [facility] TB[facility] WBC 6.8 [facility] ECG 12-LEADon 11-22-2024 [place] [address] Electrocardiograph Report Signed Patient: MAI PALOMARES MR#: [id number] : 1980 Acct:[id number] Age/Sex: 44 / F ADM Date: 11/22/24 Loc: [facility] Attending Dr: Aurea Duran D.O. Ordering Physician: Aurea Duran D.O. Date of Service: 11/22/24 Procedure(s): ECG 12 lead Accession Number(s): [id number] cc: [facility] Test Date: 2024-11-22 Pat Name: MAI PALOMARES Department: Room: - Gender: Female Recreational Therapy Aide: : 1980 Requested By: AUREA DURAN Order Number: [id number] Disha MD: REGULO ROMAN M.D. Measurements Intervals [place] Rate: 76 P: 50 CO: 155 QRS: -4 QRSD: 86 T: 22 QT: 365 QTc: 413 Interpretive Statements SINUS RHYTHM WITH SINUS ARRHYTHMIA NORMAL ECG Compared to ECG 02/10/2024 15:11:27 No significant changes Electronically Signed On 11-22-2024 20:27:41 EDT by REGULO ROMAN M.D. Dictated By: REGULO ROMAN Signed By: 11/22/242027 DD/ 1356 TD/TT: Shaker Repairer: [facility] Rad[facility], Radiologist, - 11/22/2024 [place] [address] Electrocardiograph Report Signed Patient: MAI PALOMARES MR#: [id number] : 1980 Acct:[id number] Age/Sex: 44 / F ADM Date: 11/22/24 Loc: [facility] Attending Dr: Aurea Duran D.O. Ordering Physician: Aurea Duran D.O. Date of Service: 11/22/24 Procedure(s): ECG 12 lead Accession Number(s): [id number] cc: [facility] Test Date: 2024-11-22 Pat Name: MAI PALOMARES Department: Room: - Gender: Female Recreational Therapy Aide: : 1980 Requested By: AUREA DURAN Order Number: [id number] Reading MD: REGULO ROMAN M.D. Measurements Intervals [place] Rate: 76 P: 50 CO: 155 QRS: -4 QRSD: 86 T: 22 QT: 365 QTc: 413 Interpretive Statements SINUS RHYTHM WITH SINUS ARRHYTHMIA NORMAL ECG Compared to ECG 02/10/2024 15:11:27 No significant changes Electronically Signed On 11-22-2024 20:27:41 EDT by REGULO ROMAN M.D. Dictated By: REGULO ROMAN Signed By: 11/22/242027 DD/ 135 TD/TT: Shaker Repairer: [facility] Radiology Study observation (narrative) [facility] ECG 12-LEADOrdered By: Radio logist Radiology on 11-22-2024 [facility] Healthcar e Work Phone: ALL CBC WITH AUTO DIFFon BASOPHILS ABSOLUTE AUTO 0.1 [facility] Basophils/100 WBC (Bld) 0.8 % 0.2 - 2.0 % [facility] Eosinophils/100 WBC (Bld) 6.2 % 0.9 - 7.0 % [facility] Erythrocyte distribution width (RBC) [Ratio] 12.3 % 11.0 - 15.0 % [facility] Hematocrit (Bld) [Volume fraction] 41 % 36.0 - 48.0 % [facility] Hemoglobin (Bld) [Mass/Vol] 14 g/dL 12.0 - 16.0 g/dL [facility] IMMATURE GRANULOCYTES ABS AUTO 0.02 [facility] Immature granulocytes/100 WBC (Bld) 0.3 % 0.0 - 0.5 % [facility] Interpretation and review of laboratory results Abnormal [facility] LYMPHOCYTES ABSOLUTE AUTO 1.9 [facility] Lymphocytes/100 WBC (Bld) 29.9 % 20.5 - 60.0 % [facility] MCH (RBC) [Entitic mass] 29.7 pg 26.7 - 34.0 pg [facility] MCHC (RBC) [Mass/Vol] 34.1 g/dL 29.9 - 35.2 g/dL [facility] MCV (RBC) [Entitic vol] 86.9 fL 81.0 - 99.0 fL [facility] MONOCYTES ABSOLUTE AUTO 0.7 [facility] Monocytes/100 WBC (Bld) 11.4 % 1.7 - 12.0 % [facility] NEUTROPHILS ABSOLUTE AUTO 3.3 [facility] Neutrophils/100 WBC (Bld) 51.4 % 43.0 - 75.0 % [facility] Platelet mean volume (Bld) [Entitic vol] 8.6 fL Low 9.5 - 13.5 fL [facility] TBH EO # 0.4 [facility] TBH PLT 324 [facility] RBC 4.72 [facility] TB[facility] WBC 6.5 [facility] XR RIBS RT 3 VWS [...] Oh MD on 06/19/2024 3:37 PM Normal [facility] CBC AND AUTO DIFFon 06-06-20 ABSOLUTE BASOPHIL 0.0 X10E9/L Normal 0.0-0.2 [facility] Comment on above: Performed By: #### C VIRY [facility], , 00459-3 #### [facility] ([id number]) [address] [place] [address] ABSOLUTE NEUTROPHIL 8.7 X10E9/L High 1.5-6.6 [facility] Comment on above: Performed By: #### C VIRY [facility], , 14629-2 #### [facility] ([id number]) [address] [place] [address] 48082 Basophils/100 WBC (Bld) 0.3 % Normal [facility] Comment on above: Performed By: #### Victorino BAIRES [facility], , 40970-3 #### [facility] ([id number]) [address] [place] [address] 65518 Eosinophils (Bld) [#/Vol] 0.4 10*3/uL Normal 0.0-0.4 [facility] Comment on above: Performed By: #### Victorino BAIRES [facility], , 16055-0 #### [facility] ([id number]) [address] [place] [address] 11137 Eosinophils/100 WBC (Bld) 3.5 % Normal [facility] Comment on above: Performed By: #### C PETER BAIRES, , 32279-2 #### [facility] ([id number]) [address] [place] [address] 08334 Erythrocyte distribution width (RBC) [Ratio] 12.8 % Normal 11.5-15.0 [facility] Comment on above: Performed By: #### Victorino BAIRES [facility], , 52134-1 #### [facility] ([id number]) [address] [place] [address] 91106 Hematocrit (Bld) [Volume fraction] 39.1 % Normal 35-47 [facility] Comment on above: Performed By: #### C PETER BAIRES, , 76157-1 #### [facility] ([id number]) [address] [place] [address] 16647 Hemoglobin (Bld) [Mass/Vol] 13.3 g/dL Normal 11.7-15.5 [facility] Comment on above: Performed By: #### Victorino BAIRES CMP, , 42886-8 #### [facility] ([id number]) [address] [place] [address]24 Lymphocytes (Bld) [#/Vol] 1.4 10*3/uL Normal 1.0-3.5 [facility] Comment on above: Performed By: #### Victorino BAIRES CMP, , 68201-5 #### [facility] ([id number]) [address] [place] [address] 90778 Lymphocytes/100 WBC (Bld) 12.3 % Normal [facility] Comment on above: Performed By: #### Victorino BAIRES CMP, , 90990-1 #### [facility] ([id number]) [address] [place] [address] 79286 MCH (RBC) [Entitic mass] 29.3 pg Normal 27-34 [facility] Comment on above: Performed By: #### C VIRY CMP, , 28135-3 #### [facility] ([id number]) [address] [place] [address] 85201 MCHC (RBC) [Mass/Vol] 34.0 g/dL Normal 32-36 [facility] Comment on above: Performed By: #### C VIRY, CMP, , 36755-6 #### [facility] ([id number]) [address] [place] [address] 86331 MCV (RBC) [Entitic vol] 86 fL Normal 80-100 [facility] Comment on above: Performed By: #### C VIRY CMP, , 10021-8 #### [facility] ([id number]) [address] [place] [address] 50962 Monocytes (Bld) [#/Vol] 0.9 10*3/uL Normal 0-0.9 [facility] Comment on above: Performed By: #### C VIRY, CMP, , 05590-5 #### [facility] ([id number]) [address] [place] [address] 07729 Monocytes/100 WBC (Bld) 8.2 % Normal [facility] Comment on above: Performed By: #### C VIRY, CMP, , 29038-2 #### [facility] ([id number]) [address] [place] [address] 60396 Neutrophils/100 WBC (Bld) 75.7 % Normal [facility] Comment on above: Performed By: #### C VIRY, CMP, , 87992-7 #### [facility] ([id number]) [address] [place] [address] 68877 Platelet mean volume (Bld) [Entitic vol] 7.0 fL Normal 7-12 [facility] Comment on above: Performed By: #### C BCA, CMP, 90173-1, 20300-2 #### [facility] ([id number]) [address] [place] [address] 18895 Platelets (Bld) [#/Vol] 310 10*3/uL Normal 150-450 [facility] Comment on above: Performed By: #### C BCA, CMP, , 64026-1 #### [facility] ([id number]) [address] [place] [address] 34399 RBC COUNT 4.55 X10E12/L Normal 3.80-5.20 [facility] Comment on above: Performed By: #### C BCA, CMP, , 61533-2 #### [facility] ([id number]) [address] [place] [address] 20519 WBC (Bld) [#/Vol] 11.6 10*3/uL High 4.0-11.0 [facility] Comment on above: Performed By: #### C BCA, CMP, , 95724-8 #### [facility] ([id number]) [address] [place] [address] 00693 COMPREHENSIVE METABOLIC PANE Alvino 06-06-2024 Albumin [Mass/Vol] 4.0 g/dL Normal 3.2-5.3 [facility] Comment on above: Performed By: #### C BCA, BMP, 68013-7, LIVR, 3016-3 #### [facility] ([id number]) [address], [address] [place] [address] ALP [Catalytic activity/Vol] 70 U/L Normal 39-130 [facility] Comment on above: Performed By: #### C BCA, BMP, 78378-0, LIVR, 3016-3 #### [facility] ([id number]) [address], [address] [place] [address] ALT [Catalytic activity/Vol] 31 U/L Normal 0-31 [facility] Comment on above: Performed By: #### C BCA, BMP, 25486-3, LIVR, 3016-3 #### [facility] ([id number]) [address], [address] [place] [address] Anion gap [Moles/Vol] 8 mmol/L Normal 5-15 [facility] Comment on above: Performed By: #### C BCA, BMP, 87017-3, LIVR, 3016-3 #### [facility] ([id number]) [address], [address] [place] [address] AST [Catalytic activity/Vol] 21 U/L Normal 0-41 [facility] Comment on above: Performed By: #### C BCA, BMP, 92685-5, LIVR, 6-3 #### [facility] ([id number]) [address], [address] [place] [address] Bilirubin [Mass/Vol] 0.3 mg/dL Normal 0.3-1.2 [facility] Comment on above: Performed By: #### C BCA, BMP, 42588-5, LIVR, 3016-3 #### [facility] ([id number]) [address], [address] [place] [address] Calcium [Mass/Vol] 8.7 mg/dL Normal 8.5-10.5 [facility] Comment on above: Performed By: #### C BCA, BMP, 70408-7, LIVR, 3016-3 #### [facility] ([id number]) [address], [address] [place] [address] Chloride [Moles/Vol] 105 mmol/L Normal 98-109 [facility] Comment on above: Performed By: #### C BCA, BMP, 46059-9, LIVR, 3016-3 #### [facility] ([id number]) [address], [address] [place] [address] CO2 [Moles/Vol] 24 mmol/L Normal 22-32 [facility] Comment on above: Performed By: #### C BCA, BMP, 38454-2, LIVR, 3016-3 #### [facility] ([id number]) [address], [address] [place] [address] Creatinine [Mass/Vol] 0.65 mg/dL Normal 0.40-1.00 [facility] Comment on above: Result Comment: METH OD TRACEABLE TO IDMS STANDARD Performed By: #### C BCA, BMP, 00463-8, LIVR, 3016-3 #### [facility] ([id number]) [address], [address] [place] [address] eGFR (CKD-EPI) NON-RACE DEPENDENT >90 Normal >59 [facility] Comment on above: Result Comment: Reported eGFR is based on the CKD-EPI 2020 equation that does not use a race coefficient. Performed By: #### C BCA, BMP, 93878-2, LIVR, 301-3 #### [facility] ([id number]) [address], [address] [place] [address] Glucose [Mass/Vol] 98 mg/dL Normal 65-99 [facility] Comment on above: Performed By: #### C BCA, BMP, 66470-2, LIVR, 3016-3 #### [facility] ([id number]) [address], [address] [place] [address] Potassium [Moles/Vol] 3.3 mmol/L Low 3.5-5.0 [facility] Comment on above: Performed By: #### C BCA, BMP, 32309-5, LIVR, 3016-3 #### [facility] ([id number]) [address] [address] Protein [Mass/Vol] 7.6 g/dL Normal 6.0-8.0 [facility] Comment on above: Performed By: #### C BCA, BMP, 49579-0, LIVR, 3016-3 #### [facility] ([id number]) [address] [address] Sodium [Moles/Vol] 137 mmol/L Normal 134-146 [facility] Comment on above: Performed By: #### C BCA, BMP, 86513-3, LIVR, 3016-3 #### [facility] ([id number]) [address] [address] Urea nitrogen [Mass/Vol] 8 mg/dL Normal 5-23 [facility] Comment on above: Performed By: #### C BCA, BMP, 12337-9, LIVR, 3016-3 #### [facility] ([id number]) [address] [address] MAGNESIUMon 06-06-2024 Magnesium [Mass/Vol] 2.0 mg/dL Normal 1.8-2.6 [facility] Comment on above: Performed By: #### C BCA, BMP, 03949-8, LIVR, 3016-3 #### [facility] ([id number]) [address] [address] SARS/FLU A+B/RSV by NAAT/Mol ecularon 06-06-2024 SARS/FLU [...] operators who are performing tests using either [employer] or [employer] systems and is limited to laboratories that [...] specimen repeat. Fact Sheet for Healthcare Providers: https://www.fda.gov/la lilly/836753/download Fact Sheet for Patients: https://www.fda.gov/me lilly/178556/download Normal [facility] Comment on above: Performed By: #### C OVFLR #### [facility] ([id number]) [address], [place] [address] Troponin I.cardiac High sens itivity method [Mass/Vol]on 06-06-2024 1 HOUR TROP I, HIGH SENSITIVITY <2 Normal <16 [facility] Comment on above: Performed By: #### C BCA, BMP, 88480-1, LIVR, 3016-3 #### [facility] ([id number]) [address], [address] [place] [address] TROPONIN I, HIGH SENSITIVITY <2 Normal <16 [facility] Comment on above: Performed By: #### C BCA, BMP, 72514-6, LIVR, 3016-3 #### [facility] ([id number]) [address], [address] [place] [address] XR CHEST 1 VWon 06-06-2024 XR CHEST [...] Aftab Salazar on 06/06/2024 3:13 PM Normal [facility] Alvino 01-23-2024 L Specimen: [id number] Received: 01/25/24 Status: JOANIE Garcia Num: [id number] Spec Type: Surgical Subm Dr: Aurea Duran Tissues: A Endometrium - Biopsy (EMB) B Endocervix - Curettings (ECC) Procedures: HE/4, Gross/Micro L4/2 Age/ Patient Sex Location Account Attending Physician BrandonMai 43/F LABELL [id number] Aurea Duran SPEC NUM: [id number] RECD: 01/25/24 STATUS: JOANIE CROFT NUM: [id number] KULWANT: 01/23/[address]: Aurea Duran ENTERED: 01/25/24 [facility] DR: Robe Garcia SPEC TYPE: Surgical DEPT: LOIDA SCHAEFER ORDERED: [...] regular cycle, pelvic congestion syndrome CPT Codes 78488o5 ---- ---- Specimen: [id number] Received: 01/25/24 Status: JOANIE Garcia Num: [id number] Spec Type: Surgical Subm Dr: Aurea Duran Tissues: A Endometrium - Biopsy (EMB) B Endocervix - Curettings (ECC) Procedures: Malou DICKINSON/Fito L4/2 ---- Patient: Mai Palomares [id number] (Continued) ---- Signed (signature on file) Emani Ramirez MD 01/26/[address] 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 MAMM SCREENING BILATERAL W CAD MAMM [...] 2 b MAMM 1 YR Normal [facility] BASIC METABOLIC PANLon 11-27 Anion gap [Moles/Vol] 11 mmol/L Normal 5-15 [facility] Comment on above: Performed By: #### C BCA, BMP, 87259-1, LIVR, 3016-3 #### [facility] ([id number]) [address], [address] [place] [address] Calcium [Mass/Vol] 9.5 mg/dL Normal 8.5-10.5 [facility] Comment on above: Performed By: #### C BCA, BMP, 78758-8, LIVR, 3016-3 #### [facility] ([id number]) [address], [address] [place] [address] Chloride [Moles/Vol] 105 mmol/L Normal 98-109 [facility] Comment on above: Performed By: #### C BCA, BMP, 47340-5, LIVR, 301-3 #### [facility] ([id number]) [address], [address] [place] [address] CO2 [Moles/Vol] 25 mmol/L Normal 22-32 [facility] Comment on above: Performed By: #### C BCA, BMP, 97739-2, LIVR, 3016-3 #### [facility] ([id number]) [address], [address] [place] [address] Creatinine [Mass/Vol] 0.85 mg/dL Normal 0.40-1.00 [facility] Comment on above: Result Comment: METH OD TRACEABLE TO IDMS STANDARD Performed By: #### C BCA, BMP, 20017-7, LIVR, 3016- #### [facility] ([id number]) [address] [place] [address] GFR/1.73 sq M.predicted among non-blacks MDRD (S/P/Bld) [Vol rate/Area] 86 mL/min/{1.73_m2} Normal >59 [facility] Comment on above: Result Comment: Reported eGFR is based on the CKD-EPI 2020 equation that does not use a race coefficient. Performed By: #### C BCA, BMP, 74249-9, LIVR, 301-3 #### [facility] ([id number]) [address], [address] [place] [address] Glucose [Mass/Vol] 69 mg/dL Normal 65-99 [facility] Comment on above: Performed By: #### C BCA, BMP, 41111-1, LIVR, 3016-3 #### [facility] ([id number]) [address], [address] [place] [address] Potassium [Moles/Vol] 3.4 mmol/L Low 3.5-5.0 [facility] Comment on above: Performed By: #### C BCA, BMP, 00183-4, LIVR, 3016-3 #### [facility] ([id number]) [address], [address] [address] [place] [address] Sodium [Moles/Vol] 141 mmol/L Normal 134-146 [facility] Comment on above: Performed By: #### C BCA, BMP, 58189-8, LIVR, 6-3 #### [facility] ([id number]) [address], [facility] [address] [place] [address] Urea nitrogen [Mass/Vol] 9 mg/dL Normal 5-23 [facility] Comment on above: Performed By: #### C BCA, BMP, 79068-3, LIVR, 3015-3 #### [facility] ([id number]) [address], [facility] [address] [place] [address] CBC AND AUTO DIFFon 11-28-19 24 ABSOLUTE BASOPHIL 0.1 X10E9/L Normal 0.0-0.2 [facility] Comment on above: Performed By: #### C BCA, BMP, 16928-8, LIVR, 3015- #### [facility] ([id number]) [address] [address] [place] [address] ABSOLUTE NEUTROPHIL 3.9 X10E9/L Normal 1.5-6.6 [facility] Comment on above: Performed By: #### C BCA, BMP, 17242-1, LIVR, 3015- #### [facility] ([id number]) [address] [address] [place] [address] Basophils/100 WBC (Bld) 0.8 % Normal [facility] Comment on above: Performed By: #### C BCA, BMP, 52474-3, LIVR, 6-3 #### [facility] ([id number]) [address] [address] [place] [address] Eosinophils (Bld) [#/Vol] 0.1 10*3/uL Normal 0.0-0.4 [facility] Comment on above: Performed By: #### C BCA, BMP, 27867-9, LIVR, 3016-3 #### [facility] ([id number]) [address] [address] [address] [place] [address] Eosinophils/100 WBC (Bld) 1.6 % Normal [facility] Comment on above: Performed By: #### C BCA, BMP, 68595-1, LIVR, 3016-3 #### [facility] ([id number]) [address], [facility] [address] [place] [address] Erythrocyte distribution width (RBC) [Ratio] 12.7 % Normal 11.5-15.0 [facility] Comment on above: Performed By: #### C BCA, BMP, 74535-3, LIVR, 3015- #### [facility] ([id number]) [address] [address] [address] [place] [address] Hematocrit (Bld) [Volume fraction] 42.5 % Normal 35-47 [facility] Comment on above: Performed By: #### C BCA, BMP, 52895-1, LIVR, 3015- #### [facility] ([id number]) [address] [address] [place] [address] Hemoglobin (Bld) [Mass/Vol] 14.3 g/dL Normal 11.7-15.5 [facility] Comment on above: Performed By: #### C BCA, BMP, 35483-9, LIVR, 3015- #### [facility] ([id number]) [address] [address] [place] [address] Lymphocytes (Bld) [#/Vol] 2.3 10*3/uL Normal 1.0-3.5 [facility] Comment on above: Performed By: #### C BCA, BMP, 99805-8, LIVR, 3016-3 #### [facility] ([id number]) [address], [address] [place] [address] Lymphocytes/100 WBC (Bld) 33.2 % Normal [facility] Comment on above: Performed By: #### C BCA, BMP, 05879-8, LIVR, 3015-11 #### [facility] ([id number]) [address], [address] [place] [address] MCH (RBC) [Entitic mass] 29.4 pg Normal 27-34 [facility] Comment on above: Performed By: #### C BCA, BMP, 12603-2, LIVR, 3015-11 #### [facility] ([id number]) [address], [address] [place] [address] MCHC (RBC) [Mass/Vol] 33.6 g/dL Normal 32-36 [facility] Comment on above: Performed By: #### C BCA, BMP, 01386-2, LIVR, 3015-11 #### [facility] ([id number]) [address], [address] [place] [address] MCV (RBC) [Entitic vol] 88 fL Normal 80-100 [facility] Comment on above: Performed By: #### C BCA, BMP, 21110-9, LIVR, 3015-11 #### [facility] ([id number]) [address], [address] [place] [address] Monocytes (Bld) [#/Vol] 0.5 10*3/uL Normal 0-0.9 [facility] Comment on above: Performed By: #### C BCA, BMP, 96705-4, LIVR, 3015- #### [facility] ([id number]) [address], [address] [place] [address] Monocytes/100 WBC (Bld) 7.5 % Normal [facility] Comment on above: Performed By: #### C BCA, BMP, 20095-2, LIVR, 3015-3 #### [facility] ([id number]) [address] [address] [place] [address] Neutrophils/100 WBC (Bld) 56.9 % Normal [facility] Comment on above: Performed By: #### C BCA, BMP, 99745-0, LIVR, 3016-3 #### [facility] ([id number]) [address] [address] [place] [address] Platelet mean volume (Bld) [Entitic vol] 7.3 fL Normal 7-12 [facility] Comment on above: Performed By: #### C BCA, BMP, 16360-4, LIVR, 3015-3 #### [facility] ([id number]) [address] [address] [place] [address] Platelets (Bld) [#/Vol] 392 10*3/uL Normal 150-450 [facility] Comment on above: Performed By: #### C BCA, BMP, 11947-9, LIVR, 3015- #### [facility] ([id number]) [address] [address] [place] [address] RBC COUNT 4.85 X10E12/L Normal 3.80-5.20 [facility] Comment on above: Performed By: #### C BCA, BMP, 96733-5, LIVR, 3015-3 #### [facility] ([id number]) [address] [address] [place] [address] WBC (Bld) [#/Vol] 6.8 10*3/uL Normal 4.0-11.0 [facility] Comment on above: Performed By: #### C BCA, BMP, 57045-7, LIVR, 3015-3 #### [facility] ([id number]) [address] [address] [place] [address] HGB A1C (GLYCO-HGB)on 2023 Glucose [Mass/Vol] 103 mg/dL Normal [facility] Comment on above: Performed By: #### C BCA, BMP, 91032-2, LIVR, 3016-3 #### [facility] ([id number]) [address], [facility] [address] [place] [address] HbA1c (Bld) [Mass fraction] 5.2 % Normal 4.4-5.6 [facility] Comment on above: Result Comment: NOTE ADA Guidelines Result HgbA1c Normal : less than 5.7 % Prediabetes : 5.7 % to 6.4 % Diabetes : > 6.4 % Use with caution in patients with abnormal hemoglobin variants as the half-life of red blood cells and in vivo glycation rates are affected. Performed By: #### C BCA, BMP, 64545-3, LIVR, 3016-3 #### [facility] ([id number]) [address], [facility] [address] [place] [address] LIVER PANELon 11-28-2023 Albumin [Mass/Vol] 4.2 g/dL Normal 3.2-5.3 [facility] Comment on above: Performed By: #### C BCA, BMP, 66683-3, LIVR, 6-3 #### [facility] ([id number]) [address] [address] [place] [address] ALP [Catalytic activity/Vol] 59 U/L Normal 39-130 [facility] Comment on above: Performed By: #### C BCA, BMP, 93922-1, LIVR, 3016-3 #### [facility] ([id number]) [address] [address] [place] [address] ALT [Catalytic activity/Vol] 25 U/L Normal 0-31 [facility] Comment on above: Performed By: #### C BCA, BMP, 70597-4, LIVR, 3016-3 #### [facility] ([id number]) [address], [address] [place] [address] AST [Catalytic activity/Vol] 20 U/L Normal 0-41 [facility] Comment on above: Performed By: #### C BCA, BMP, 88370-1, LIVR, 3016-3 #### [facility] ([id number]) [address], [address] [place] [address] Bilirubin [Mass/Vol] 0.3 mg/dL Normal 0.3-1.2 [facility] Comment on above: Performed By: #### C BCA, BMP, 08271-6, LIVR, 3016-3 #### [facility] ([id number]) [address], [address] [place] [address] Bilirubin.direct [Mass/Vol] 0.1 mg/dL Normal 0.0-0.4 [facility] Comment on above: Performed By: #### C BCA, BMP, 44333-2, LIVR, 6-3 #### [facility] ([id number]) [address], [address] [place] [address] Protein [Mass/Vol] 7.5 g/dL Normal 6.0-8.0 [facility] Comment on above: Performed By: #### C BCA, BMP, 50630-1, LIVR, 3016-3 #### [facility] ([id number]) [address], [address] [place] [address] Lipid 1996 panelon 4 Cholesterol [Mass/Vol] 205 mg/dL High 150-200 [facility] Comment on above: Performed By: #### C BCA, BMP, 48808-2, LIVR, 3016-3 #### [facility] ([id number]) [address], [address] [place] [address] Cholesterol in HDL [Mass/Vol] 39 mg/dL Low >39 [facility] Comment on above: Result Comment: HDL <40 mg/dL - High Risk HDL > or = 40mg/dL- Desirable HDL >60 mg/dL - Negative Risk Performed By: #### C BCA, BMP, 67778-6, LIVR, 3016-3 #### [facility] ([id number]) [address], [address] [place] [address] Cholesterol in LDL [Mass/Vol] 134 mg/dL High <130 [facility] Comment on above: Result Comment: LDL <100 mg/dL - Desirable LDL >160 mg/dL - High Risk Performed By: #### C BCA, BMP, 90615-7, LIVR, 3016-3 #### [facility] ([id number]) [address], [address] [place] [address] Cholesterol in VLDL [Mass/Vol] 32 mg/dL High 0-30 [facility] Comment on above: Performed By: #### C BCA, BMP, 72400-9, LIVR, 3016-3 #### [facility] ([id number]) [address], [address] [place] [address] CHOLESTEROL:HDL 5.3 High 1.0-5.0 [facility] Comment on above: Performed By: #### C BCA, BMP, 37588-3, LIVR, 3016-3 #### [facility] ([id number]) [address], [address] [place] [address] Triglyceride [Mass/Vol] 158 mg/dL High 27-150 [facility] Comment on above: Performed By: #### C BCA, BMP, 28495-6, LIVR, 3016-3 #### [facility] ([id number]) [address] [place] [address] TSH Qnon 11-28-2023 TSH 2.66 uIU/mL Normal 0.49-4.67 [facility] Comment on above: Performed By: #### C BCA, BMP, 78361-0, LIVR, 3016-3 #### [facility] ([id number]) [address], [address] [place] [address] Vital Signs Date Time Vital Sign Value Performing Clinician Facility 11-12-2024 15:14-0500 Body mass index (BMI) [Ratio] 26.16 kg/m2 Aurea Roger DO Work Phone: [facility] 11-12-2024 15:14-0500 Body weight 64.86 kg Aurea Roger DO Work Phone: [facility] 11-12-2024 15:14-0500 Diastolic blood pressure 72 mm[Hg] Aurea Roger DO Work Phone: [facility] 11-12-2024 15:14-0500 Systolic blood pressure 118 mm[Hg] Aurea Roger DO Work Phone: [facility] 09-25-2024 15:18-0500 Body mass index (BMI) [Ratio] 26.34 kg/m2 Aurea Roger DO Work Phone: [facility] 09-25-2024 15:18-0500 Body weight 65.32 kg Aurea Rogre DO Work Phone: [facility] 09-25-2024 15:18-0500 Diastolic blood pressure 74 mm[Hg] Aurea Roger DO Work Phone: [facility] 09-25-2024 15:18-0500 Systolic blood pressure 110 mm[Hg] Aurea Roger DO Work Phone: [facility] 08-30-2024 14:39-0500 Body height 157.5 cm Vance Bourgeois MD Work Phone: [facility] 08-30-2024 14:39-0500 Body mass index (BMI) [Ratio] 26.34 kg/m2 Vance Bourgeois MD Work Phone: [facility] 08-30-2024 14:39-0500 Body temperature 98.2 [degF] Vance Bourgeois MD Work Phone: [facility] 08-30-2024 14:39-0500 Body weight 65.32 kg Vance Bourgeois MD Work Phone: [facility] 08-30-2024 14:39-0500 Diastolic blood pressure 64 mm[Hg] Vance Bourgeois MD Work Phone: [facility] 08-30-2024 14:39-0500 Heart rate 74 /min Vance Bourgeois MD Work Phone: [facility] 08-30-2024 14:39-0500 Respiratory rate 20 /min Vance Bourgeois MD Work Phone: [facility] 08-30-2024 14:39-0500 SaO2% (BldA) [Mass fraction] 97 % Vance Bourgeois MD Work Phone: [facility] 08-30-2024 14:39-0500 Systolic blood pressure 106 mm[Hg] Vance Bourgeois MD Work Phone: [facility] 06-14-2024 14:30-0400 Body height 157.5 cm Vance Bourgeois MD Work Phone: [facility] 06-14-2024 14:30-0400 Body mass index (BMI) [Ratio] 26.52 kg/m2 Vance Bourgeois MD Work Phone: [facility] 06-14-2024 14:30-0400 Body temperature 97.81 [degF] Vance Bourgeois MD Work Phone: [facility] 06-14-2024 14:30-0400 Body weight 65.77 kg Vance Bourgeois MD Work Phone: [facility] 06-14-2024 14:30-0400 Diastolic blood pressure 58 mm[Hg] Vance Bourgeois MD Work Phone: [facility] 06-14-2024 14:30-0400 Heart rate 95 /min Vance Bourgeois MD Work Phone: [facility] 06-14-2024 14:30-0400 Respiratory rate 22 /min Vance Bourgeois MD Work Phone: [facility] 06-14-2024 14:30-0400 SaO2% (BldA) [Mass fraction] 98 % Vance Bourgeois MD Work Phone: [facility] 06-14-2024 14:30-0400 Systolic blood pressure 110 mm[Hg] Vance Bourgeois MD Work Phone: [facility] 04-09-2024 14:28-0400 Body height 158.75 cm DO Aurea Roger Work Phone: [facility] 04-09-2024 14:28-0400 Body mass index (BMI) [Ratio] 25.2 kg/m2 DO Aurea Roger Work Phone: [facility] 04-09-2024 14:28-0400 Body temperature 98.2 [degF] DO Aurea Roger Work Phone: [facility] 04-09-2024 14:28-0400 Body weight 63.5 kg DO Aurea Roger Work Phone: [facility] 04-09-2024 14:28-0400 Diastolic blood pressure 83 mm[Hg] DO Aurea Roger Work Phone: [facility] 04-09-2024 14:28-0400 Heart rate 84 /min DO Aurea Roger Work Phone: [facility] 04-09-2024 14:28-0400 Respiratory rate 18 /min DO Aurea Roger Work Phone: [facility] 04-09-2024 14:28-0400 SaO2% (BldA) [Mass fraction] 98 % DO Aurea Roger Work Phone: [facility] 04-09-2024 14:28-0400 Systolic blood pressure 123 mm[Hg] DO Aurea Roger Work Phone: [facility] 2023 16:10-0400 Body height 157.48 cm Kajal Sharon Other [facility] Other 2023 16:10-0400 Body mass index (BMI) [Ratio] 25.09 kg/m2 Kajal Mariemond Other [facility] Other 2023 16:10-0400 Body temperature 99 [degF] Kajal Mariemond Other [facility] Other 2023 16:10-0400 Body weight 62.23 kg Kajal Mariemond Other [facility] Other 2023 16:10-0400 Diastolic blood pressure 79 mm[Hg] Kajal Sharon Other [facility] Other 2023 16:10-0400 Respiratory rate 18 /min Kajal Sharon Other [facility] Other 2023 16:10-0400 SaO2% (BldA) [Mass fraction] 98 % Kajal Sharon Other [facility] Other 2023 16:10-0400 Systolic blood pressure 115 mm[Hg] Kajal Sharon Other [facility] Other Encounters Encounter Date Encounter Type Care Provider Facility Start: 12-05-2024 End: 12-05-2024 ambulatory Aurea Roger DO Work Phone: [facility] Work Phone: Start: 12-05-2024 End: 12-05-2024 Departed Referred Aurea Duran DO Work Phone: [facility] Start: 11-29-2024 End: 11-29-2024 ambulatory AUREA ROGER Not Available Start: 11-22-2024 End: 11-22-2024 Clinisync Result Encounter Generic External Data Provider [facility] External Department Unsolicited Start: 11-22-2024 End: 11-22-2024 Clinisync Result Encounter Generic External Data Provider [facility] External Department Unsolicited Start: 11-12-2024 End: 11-12-2024 Office outpatient visit 15 minutes Aurea Amadoo DO Work Phone: [facility] Comment on above: Pre-op evaluation; Menorrhagia with regular cycle; Pelvic pain in female; Dyspareunia, female; Dysmenorrhea Start: 11-12-2024 End: 11-12-2024 Preprocedural examination done Aurea Duran DO Work Phone: [facility] Start: 11-12-2024 End: 11-12-2024 ambulatory AUREA ROGER Not Available Start: 11-12-2024 End: 11-12-2024 Bamboo flowsheet Aurea Amadoo DO Work Phone: [facility] Start: 11-12-2024 End: 11-12-2024 Bamboo flowsheet Aurea Amadoo DO Work Phone: [facility] Start: 10-02-2024 End: 10-02-2024 Clinisync Result Encounter Generic External Data Provider [facility] External Department Unsolicited Start: 10-02-2024 End: 10-02-2024 Clinisync Result Encounter Generic External Data Provider [facility] External Department Unsolicited Start: 09-25-2024 End: 09-25-2024 Office outpatient visit 15 minutes Aurea Amadoo DO Work Phone: [facility] Comment [...] 06-19-2024 Emergency department patient visit VANCE BOURGEOIS [facility] Start: 06-14-2024 End: 06-14-2024 Office outpatient [...] Vance Bourgeois MD Work Phone: [facility] Start: 06-06-2024 End: 06-06-2024 Emergency department patient visit VANCE BOURGEOIS [facility] Start: 04-09-2024 End: 04-09-2024 ambulatory DO Aurea Roger Work Phone: [facility] Work Phone: Start: 04-09-2024 End: 04-09-2024 Patient encounter procedure DO Aurea Roger Work Phone: [facility] Work Phone: Start: 03-21-2024 End: 03-21-2024 ambulatory AUREA ROGER Not Available Start: 02-28-2024 End: 02-28-2024 ambulatory VANCE BOURGEOIS Not Available Start: 02-17-2024 End: 02-17-2024 ambulatory Aurea Roger [facility] Work Phone: Start: 02-17-2024 End: 02-17-2024 Departed Referred Aurea Roger Work Phone: [facility] Start: 01-23-2024 End: 01-23-2024 Departed Referred Aurea Roger Work Phone: [facility] Start: 01-23-2024 End: 01-23-2024 ambulatory Aurea Roger Facility:[facility] Start: 12-27-2023 End: 12-27-2023 ambulatory AUREA ROGER Not Available Start: 12-22-2023 End: 12-22-2023 ambulatory MIR MIRELES Not Available Start: 12-07-2023 End: 12-07-2023 ambulatory VANCE [facility] Start: 11-28-2023 End: 11-28-2023 ambulatory [facility] Start: 11-28-2023 Encounter for genera l adult medical examination without abnormal findings VANCE BOURGEOIS [facility] Start: 11-22-2023 Patient encounter procedure Vance Bourgeois MD Work Phone: [facility] Start: 2023 End: 2023 ambulatory Kajal Herrera Other [facility] [employer] Other Start: 2023 Office outpatient ne w [...] Screening for malign ant neoplasm of cervix [facility] Start: 12-15-2026 Screening for malign ant neoplasm of colon [facility] Start: 02-28-2025 End: 02-28-2025 Patient encounter procedure 02/28/2025 2:30 PM EDT Office Visit [facility] [address] [place] [id number] Vance Bourgeois MD [address] [place] [address] [facility] Start: 12-07-2024 Screening for malign ant neoplasm of breast Mammogram [facility] Start: 11-12-2024 End: 11-12-2024 Patient encounter procedure [facility] Comment on above: Arrived Start: 11-01-2024 End: 11-01-2024 Professional / ancillary services management 11/01/2024 2:30 PM EST Ancillary Procedure [facility] [address] [place] [address] [facility] Start: 10-16-2024 End: 10-16-2024 Professional / ancillary services management 10/16/2024 2:30 PM EST Ancillary Procedure [facility] [address] [place] [address] [facility] Start: 09-25-2024 End: 09-25-2024 Patient encounter procedure [facility] Comment on above: Arrived Start: 09-25-2024 End: 09-25-2025 aPTT in Blood by Coagulation assay APTT Lab Routine Menorrhagia with regular cycle Expected: 09/25/2024 (Approximate), Expires: 09/25/2025 [facility] Comment on above: Expected: 09/25/2024 (Approximate), Expires: 09/25/2025 Start: 09-25-2024 End: 09-25-2025 US Pelvis US Pelvis w/ TV Imaging Routine Menorrhagia with regular cycle Expected: 09/25/2024, Expires: 09/25/2025 [facility] Comment on above: Expected: 09/25/2024 , Expires: 09/25/2025 Start: 08-30-2024 End: 08-30-2024 Patient encounter procedure [facility] Comment on above: Arrived Start: 06-14-2024 End: 06-14-2024 Patient encounter procedure 06/14/2024 2:30 PM EDT Office Visit [facility] [address] [place] [address] Vance Bourgeois MD [address] [place] [address] Arrived [facility] Comment on above: Arrived Start: 05-13-2024 Influenza vaccination Influenza Vacc ine (#1) [facility] Start: 1980 Screening for malign ant neoplasm of colon [facility] CBC W Auto Different ial panel - Blood CBC and differential Lab Routine Menorrhagia with regular cycle Ordered: 09/25/2024 [facility] Work Phone: Comment on above: Ordered: 09/25/2024 hCG, quantitative, hCG, quantitative, Lab Routine Menorrhagia with regular cycle Ordered: 09/25/2024 [facility] Comment on above: Ordered: 09/25/2024 Hemoglobin A1c/Hemoglobin.total in Blood Hemoglobin A1c Lab Routine Menorrhagia with regular cycle Ordered: 09/25/2024 [facility] Comment on above: Ordered: 09/25/2024 Prothrombin time (PT ) in Blood by Coagulation assay Protime-INR Lab Routine Menorrhagia with regular cycle Ordered: 09/25/2024 [facility] Comment on above: Ordered: 09/25/2024 Thyrotropin [Units/volume] in Serum or Plasma TSH Lab Routine Menorrhagia with regular cycle Ordered: 09/25/2024 [facility] Comment on above: Ordered: 09/25/2024 Thyroxine (T4) free [Mass/volume] in Serum or Plasma T4, free Lab Routine Menorrhagia with regular cycle Ordered: 09/25/2024 [facility] Comment on above: Ordered: 09/25/2024 Payers Date Payer Category Payer Self-pay 2022 [employer] [id number] 2022 Unknown BCBS BCBS xxxxxx [id number] 2022-Present [phone] [address] [place] [address] [id number] 2022 [employer] [id number] 1978 Unknown [id number] 2.16.840.1.708809.3.579. 2.6 1978 Unknown [id number] 2.16.840.1.401023.3.579. 2.6 1978 Unknown [id number] 2.16.840.1.876738.3.579. 2.6 1978 Unknown [id number] 2.16.840.1.609258.3.579. 2.1286 1978 Unknown [id number] 2.16.840.1.228025.3.579. 2.9 1978 Unknown [id number] 2.16.840.1.592916.3.579. 2.9 1978 Unknown [id number] 2.16.840.1.152720.3.579. 2.9 1978 Unknown [id number] 2.16.840.1.029682.3.579. 2.9 1978 Unknown [id number] 2.16.840.1.435548.3.579. 2.1258 1978 Unknown [id number] 2.16.840.1.730479.3.579. 2.9 1978 Unknown [id number] 2.16.840.1.516597.3.579. 2.9 1978 Unknown [id number] 2.16.840.1.559079.3.579. 2.9 1978 Unknown [id number] 2.16.840.1.118158.3.579. 2.1258 1978 Unknown [id number] 2.16.840.1.376135.3.579. 2.1259 Social History Date Type Detail Facility Unknown if ever smoked [facility] Other Start: 11-15-2023 End: 08-30-2024 Sex Assigned At [facility] Start: 1980 Sex Assigned At Female [facility] Start: 11-22-2023 Tobacco smoking status NHIS Never smoked tobacco [facility] Start: 11-22-2023 Tobacco use and exposure Smokeless tobacco non-user [facility] Start: 03-21-2024 End: 11-12-2024 Alcoholic beverage intake [facility] (finding[facility] Start: 11-15-2023 End: 08-30-2024 History of Social function [facility] Do you belong to any clubs or organizations such as jew groups, unions, fraternal or athletic groups, or [...] assigned at Not on file [facility] Tobacco smoking stat us NHIS Unknown if ever smoked [facility] Work Phone: Start: 12-06-2024 Sex Female (finding) [facility] History of Present illness Narrative 11-12-2024 Emma Ollieholly - 11/12/2024 2:50 PM EST Note Date [...] on 12/05/[address] Duran at [facility]. MEDICATIONS Current Outpatient Medications Medication Instructions albuterol HFA 90 mcg/act inhaler amitriptyline (ELAVIL) 25 mg, Oral, Nightly gblowmzqmo-teiidpwqnulwt-ixcyfbks 50-325-40 MG tablet 1 tablet, Oral, 4 [...] nursing note reviewed. Exam conducted with a thimble press operator present. Vitals: Estimated body mass index is [...] reviewed, and patient is to proceed to [facility] OR. Follow Up: Patient is to [...] Instructions amitriptyline (ELAVIL) 25 mg, Oral, Nightly ogfcukuufm-usujhomzebtwg-nfgyvkkd 50-325-40 MG tablet 1 tablet, Oral, 4 [...] symptoms and start motrin PRN. Follow with staff antisubmarine officer. Subjective Patient ID: Mai Palomares is a [...] C/o severe cramping and irregular periods. Seen staff antisubmarine officer and had ablation. Scheduled next month. Requests [...] Relevant Medications rizatriptan (Maxalt) 10 MG tablet xnwrbvyonc-tnoowsvhpkjyo-fhwlnvon 50-325-40 MG tablet MDD (major depressive disorder), recurrent episode, moderate (CMS/HCC) Occasional symptoms but tolerable without medication and monitor. Dysmenorrhea Frequent symptoms and start motrin PRN. Follow with staff antisubmarine officer. Relevant Medications ibuprofen 800 MG tablet documented [...] 10 MG tablet documented in this encounter [facility] Healthcare Evaluation note 2023 Note [...] no improvement in 2 to 3 days [facility] Other Evaluation note Note Date & Type Note Facility Evaluation note No assessment information [facility] Work Phone: Evaluation note Note Date & Type Note Facility Evaluation note Diagnosis Acute bronchitis due to other specified organisms- Primary documented in this encounter [facility] Healthcare Evaluation note Note Date & [...] anxiety disorder Dysmenorrhea documented in this encounter [facility] Healthcare Evaluation note Note Date & [...] with regular cycle documented in this encounter [facility] Healthcare Evaluation note Note Date & [...] in this encounter [facility] Advance Directives Advance Directive Response Recorded Date/ Time Advance [...] Dates Aurea Duran Attending Provider Active Start: 2023 End: February 17, 2024 Team Status: Active Member Role Status Dates [facility] Primary Care Provider Active Team Status: Inactive [...] April 09, 2024 End: April 09, 2024 Net Lead Developer Relationship Specialty Start Date End Date Vance Bourgeois MD [address] [place] [id number] PCP - [employer] 06/12/23 Vance Bourgeois MD [address] [place] [address] PCP - General Family Medicine 10/17/23 Net Lead Developer Relationship Specialty Start Date End Date Vance Bourgeois MD [address] [place] [phone] PCP - [employer] 06/12/23 Vance Bourgeois MD [address] [place] [phone] PCP - General Family Medicine 10/17/23 Net Lead Developer Relationship Specialty Start Date End Date Vance Bourgeois MD [address] [place] [phone] PCP - [employer] 06/12/23 Vance Bourgeois MD [address] [place] [address] PCP - General Family Medicine 10/17/23 Net Lead Developer Relationship Specialty Start Date End Date Vance Bourgeois MD [address] [place] [address] PCP - [employer] 06/12/23 Vance Bourgeois MD [address] [place] [phone] PCP - General Family Medicine 10/17/23 Net Lead Developer Relationship Specialty Start Date End Date Vance Bourgeois MD [address] [place] [address] PCP - [employer] 06/12/23 Vance Bourgeois MD [address] [place] [address] PCP - General Family Medicine 10/17/23 Net Lead Developer Relationship Specialty Start Date End Date Vance Bourgeois MD [address] [place] [address] PCP - [employer] 06/12/23 Vance Bourgeois MD [address] [place] [phone] PCP - General Family Medicine 10/17/23 Net Lead Developer Relationship Specialty Start Date End Date Vance Bourgeois MD [address] [place] [phone] PCP - [employer] 06/12/23 Vance Bourgeois MD [address] [place] [address] PCP - General Family Medicine 10/17/23 Net Lead Developer Relationship Specialty Start Date End Date Vance Bourgeois MD [address] [place] [address] PCP - [employer] 06/12/23 Vance Bourgeois MD [address] [place] [address] PCP - General Family Medicine 10/17/23 Net Lead Developer Relationship Specialty Start Date End Date Vance Bourgeois MD [address] [place] [phone] PCP - [employer] 06/12/23 Vance Bourgeois MD [address] [place] [address] PCP - General Family Medicine 10/17/23 Net Lead Developer Relationship Specialty Start Date End Date Vance Bourgeois MD [address] [place] [address] PCP - [employer] 06/12/23 Vance Bourgeois MD [address] [place] [address] PCP - General [facility] 10/17/23 Team Status: Inactive Member Role Status Dates Aurea Duran DO Attending Provider Active Start : December 05, 2024 End: December 05, 2024 Goals (unrecognized section and content) Goals may be documented in a n alternate section INFORMATION SOURCE (unrecogn ized section and content) DATE CREATED AUTHOR 02/18/2024 [facility] DATE CREATED AUTHOR AUTHOR'S ORGANIZ ATION 06/21/2024 [facility] DATE CREATED AUTHOR AUTHOR'S ORGANIZ ATION 12/01/2024 [facility] FOR RECORDS PERTAINING TO PATIENTS WHO ARE [...] BE BASED ON THE PRIMARY CLINICAL RECORDS. [facility]. provides no warranty or guarantee of the accuracy or completeness of information in this document.
[2024-12-06 08:16] VITALS: BP 132/79; PULSE 96; TEMP 36.6; O2SAT 96
[2024-12-06] MEDS: IBUPROFEN 400 MG TABLET 800 MG PO (08:19)
[2024-12-06] MEDS: MAGNESIUM HYDROXIDE 2,400 MG/10 ML ORAL.SUSP 2400 MG PO (08:19)
[2024-12-06 12:00] VITALS: BP 130/78; PULSE 112; TEMP 37.2; O2SAT 95
--- NOTE | 2024-12-06 13:08 | PM.GYNPN2 ---
MATERIAL HANDLER 2ND SHIFT - PN: Subj Post-Op Subjective: patient has no complaints, patient desires discharge, pain is well controlled and patient is tolerating oral intake Exam Constitutional Vital Signs, click to edit/add: Last Vital Signs Temp 99 F 12/06/24 12:00 Pulse 112 H 12/06/24 12:00 Resp 18 12/06/24 12:00 BP 130/78 12/06/24 12:00 Pulse Ox 95 12/06/24 12:00 O2 Del Method Room Air 12/06/24 12:00 O2 Flow Rate 2 12/05/24 15:06 Documenting provider has reviewed patient's vital signs: yes Common normals: no apparent distress Respiratory Common normals: normal respiratory effort and clear to auscultation bilaterally Cardio Common normals: regular rate and regular rhythm GI Common normals: Normal to inspection, nondistended, normoactive bowel sounds present Extremity Common normals: no clubbing, cyanosis or edema and no calf tenderness Results Labs Labs: Short CBC 12/06/24 Range/Units 05:57 WBC 16.8 H (4.0-11.0) 10^3/uL Hgb 12.5 (12.0-16.0) g/dL Hct 36.5 (36.0-48.0) % Plt Count 375 (150-450) 10^3/uL MATERIAL HANDLER 2ND SHIFT - A/P Postoperative Procedures: Procedures Operation Date: 12/05/24 07:30 Actual Procedure Side Surgeon p Total Abdominal Hysterectomy, Cystoscopy Not Applicable Greyson Duran DO Postoperative day: 1 Postoperative status MATERIAL HANDLER 2ND SHIFT: doing well Post-operative plan MATERIAL HANDLER 2ND SHIFT: routine post-op care, discharge and other (fu 1wk) Fall Risk Details Brothers fall scale risk level: Low Fall Risk Current medications: Current Medications Docusate Sodium (Docusate Sodium 100 Mg Capsule) 100 mg PO BID PRN PRN Reason: Constipation Last Admin: 12/05/24 15:04 Dose: 100 mg Enoxaparin Sodium (Enoxaparin Sodium 40 Mg/0.4 Ml Syringe) 40 mg SUBQ Q24H KANWAL Last Admin: 12/06/24 06:37 Dose: Not Given Promethazine HCl 25 mg/ Sodium (Chloride) 51 mls @ 204 mls/hr IV Q6H PRN PRN Reason: Nausea And Vomiting Ibuprofen (Ibuprofen 400 Mg Tablet) 800 mg PO Q6H PRN PRN Reason: Pain Last Admin: 12/06/24 08:19 Dose: 800 mg Ketorolac Tromethamine (Ketorolac Tromethamine 30 Mg/Ml Vial) 30 mg IVP Q6H PRN PRN Reason: Pain Last Admin: 12/06/24 11:58 Dose: 30 mg Ondansetron HCl (Ondansetron Pf 4 Mg/2 Ml Vial) 4 mg IV Q6H PRN PRN Reason: Nausea Last Admin: 12/06/24 05:20 Dose: 4 mg Oxycodone/Acetaminophen (Oxycodone Hcl/Acetaminophen 5mg/325mg) 2 tab PO Q6H PRN PRN Reason: Pain Last Admin: 12/06/24 00:29 Dose: 2 tab Oxycodone/Acetaminophen (Oxycodone Hcl/Acetaminophen 5mg/325mg) 1 tab PO Q6H PRN PRN Reason: Pain Simethicone (Simethicone 80 Mg Tab.Chew) 80 mg PO PCHS PRN PRN Reason: Abdominal Distention Last Admin: 12/05/24 15:04 Dose: 80 mg Temazepam (Temazepam 15 Mg Capsule) 30 mg PO QHS PRN PRN Reason: Sleep Time Spent With Patient Time: Total time spent is greater than 50% in coordination of care (as documented) at patient's floor/unit and/or counseling patient: Time with patient: less than 15 minutes Urinary Catheter Management Urinary Catheter Management Urethral: Cath placed during this visit: no
--- NOTE | 2024-12-07 13:32 | CM.DCFOLLOWU ---
Person spoke with:patient How are you feeling? well except for the gassiness How is your pain? controlled Did you understand your discharge instructions?yes Do you have any questions about your discharge instructions?no Were you given any prescriptions at discharge?yes Were you able to get your prescriptions filled?yes Do you understand how to take your medications as ordered?yes Do you have any questions about your follow up appointment and do you plan to keep your follow up appointment? no questions, Roger's office called her earlier, she will call them back and re-schedule Is there anything else that you would like to discuss?no Questions/Comments/Concerns/Other:none
== END 2024-12-06 15:10 | disposition home or self-care (01) | DRG 743 ==
LOC: MS 12-06 07:15
PROVIDERS: Admitting Provider Obstetrics & Gynecology; PCP Family Medicine; Visit Provider Obstetrics & Gynecology
PROC: 0UT90ZZ Resection of Uterus, Open Approach (ICD-10-PCS; principal; 2024-12-05 07:30)
DX: N92.0 Excessive and frequent menstruation with regular cycle (principal); N94.10 Unspecified dyspareunia; N93.9 Abnormal uterine and vaginal bleeding, unspecified; R10.2 Pelvic and perineal pain; N94.6 Dysmenorrhea, unspecified; F41.1 Generalized anxiety disorder; F32.9 Major depressive disorder, single episode, unspecified; Z98.51 Tubal ligation status
CPT/HCPCS: 36415; 64488; 84702; 85025; 88307; 94667; J0131; J0744; J1100; J1171; J1836; J1885; J1940; J2250; J2405; J2704; J3010